=== PATIENT | male | born 1945 | race Caucasian/White ===

== ENCOUNTER 2017-05-04 20:20 | Emergency (ER) | payer MEDICARE, OTHER ==
--- NOTE | 2017-05-04 20:52 | ER Document Report ---
ED General - General Stated Complaint: THIGH PAIN/SWELLING Time Seen by Provider: 05/04/17 20:32 Notes: Patient is a 71-year-old male with past medical history of chronic bilateral lower extremity edema, diabetes, hypertension, none of which is currently medically managed as he does not currently have a doctor who presents with concerns of a open wound and rash to his left foot as well as bilateral lower extremity edema. Patient reports that he has had an ulcerating lesion on the distal aspect of his left dorsal foot that is worsened over the last several days and has begun to have a foul-smelling purulent drainage. He notes a small amount of surrounding erythema. He states he has had similar episodes in the past secondary to his diabetic neuropathy and wearing shoes that do not fit properly. He denies any fever or constitutional symptoms. He also notes that he has had worsening of the swelling in both of his legs. He has not done anything to try to treat this. He is uncertain of if he has a history of CHF or chronic kidney disease. - Related Data Allergies/Adverse Reactions: No Known Allergies Allergy (Unverified 05/04/17 20:51) Past Medical History - General Information source: Patient - Social History Smoking Status: Never Smoker Frequency of alcohol use: None Drug Abuse: None Lives with: Alone Family History: Reviewed & Not Pertinent Review of Systems - Review of Systems Notes: Constitutional: Negative for fever. HENT: Negative for sore throat. Eyes: Negative for visual changes. Cardiovascular: Negative for chest pain. Respiratory: Negative for shortness of breath. Gastrointestinal: Negative for abdominal pain, vomiting or diarrhea. Genitourinary: Negative for dysuria. Musculoskeletal: Positive for bilateral lower extremity pain and edema Skin: Positive for rash. Neurological: Negative for headaches, weakness or numbness. 10 point ROS negative except as marked above and in HPI. Physical Exam - Vital signs Vitals: Temp Pulse Resp BP Pulse Ox 97.4 F 97 17 125/100 H 99 05/04/17 20:51 05/04/17 20:51 05/04/17 20:51 05/04/17 20:51 05/04/17 20:51 Interpretation: Normal Notes: PHYSICAL EXAMINATION: GENERAL: Appears somewhat older than stated age. In no acute distress. HEAD: Atraumatic, normocephalic. EYES: Pupils equal round and reactive to light, extraocular movements intact, sclera anicteric, conjunctiva are normal. ENT: nares patent, oropharynx clear without exudates. Moist mucous membranes. NECK: Normal range of motion, supple without lymphadenopathy LUNGS: Breath sounds clear to auscultation bilaterally and equal. No wheezes rales or rhonchi. HEART: Regular rate and rhythm without murmurs ABDOMEN: Soft, nontender, normoactive bowel sounds. No guarding, no rebound. No masses appreciated. EXTREMITIES: Normal range of motion, 4+ pitting edema that is equal and symmetric in the bilateral lower extremities. NEUROLOGICAL: No focal neurological deficits. Moves all extremities spontaneously and on command. PSYCH: Normal mood, normal affect. SKIN: Warm, Dry, normal turgor, there is a 2 x 1 cm circular ulcer on the dorsal , distal aspect of the left foot just below the level of the toes and the central foot. There is a small surrounding area of erythema. No crepitus. Course - Re-evaluation Re-evalutation: 05/04/17 20:51 Patient presents with bilateral lower extremity edema and a diabetic foot ulcer on the dorsum of his left foot with an associated cellulitis. Patient does not currently have a primary care doctor, does not take any medications to control his chronic medical problems. He has no history of CHF or renal failure. He denies any shortness of breath or orthopnea. Vitals are within normal lives at time of assessment. He does not meet sepsis criteria. Is otherwise well in appearance, awake, talking and joking with me during exam. Will obtain basic laboratories, apply compression stockings, start antibiotics and plan for likely discharge home 05/04/17 21:59 Patient's laboratories do demonstrate that he likely has underlying congestive heart failure. I have explained this to him and encouraged him to follow-up with his primary doctor and curriculum supervisor at his earliest ability. He was placed in compression stockings and I will start him on a short course of Lasix to assist with the lower extremity edema. Will also start him on metformin for his diabetes hemoglobin A1c is 8.6. Renal function is normal. He will be also started on TMP-SMX as well as cephalexin to treat the cellulitis of the left lower extremity. At this time will discharge with return precautions and follow -up recommendations. Verbal discharge instructions given a the bedside and opportunity for questions given. Medication warnings reviewed. Patient is in agreement with this plan and has verbalized understanding of return precautions and the need for primary care follow-up in the next 24-72 hours. - Vital Signs Vital signs: Temp Pulse Resp BP Pulse Ox 97.4 F 97 27 H 118/104 H 99 05/04/17 20:51 05/04/17 20:51 05/05/17 02:30 05/05/17 02:30 05/05/17 02:30 - Laboratory Result Diagrams: 05/04/17 20:50 05/04/17 20:50 Laboratory results interpreted by me: 05/04/17 05/04/17 05/04/17 20:50 20:50 20:50 RDW 16.5 H Plt Count 132 L Seg Neutrophils % 78.4 H Lymphocytes % 12.1 L BUN 27 H Glucose 169 H Hemoglobin A1c % NT-Pro-B Natriuret Pep 25940 H 05/04/17 20:50 RDW Plt Count Seg Neutrophils % Lymphocytes % BUN Glucose Hemoglobin A1c % 8.6 H NT-Pro-B Natriuret Pep Discharge - Discharge Clinical Impression: Lower extremity edema, Left leg cellulitis Congestive heart failure Qualifiers: Congestive heart failure type: unspecified congestive heart failure type Congestive heart failure chronicity: unspecified congestive heart failure chronicity Qualified Code(s): I50.9 - Heart failure, unspecified Type 2 diabetes mellitus Qualifiers: Diabetes mellitus complication status: with skin complications Diabetes mellitus complication detail: with foot ulcer Diabetes mellitus long term care pharmacist insulin use: without mcc use Qualified Code(s): E11.621 - Type 2 diabetes mellitus with foot ulcer Condition: Fair Disposition: HOME, SELF-CARE Additional Instructions: You need to follow-up with a primary care doctor. I recognize that you do not currently have one but it is extremely important that you get one as you have multiple medical problems that require chronic management. Your labs suggest that you have uncontrolled diabetes which is one of the main causes of your lower extremity infection and ulcer. However, your labs also suggest that you likely have some underlying congestive heart failure which is why your legs swell so much. We are putting you in compression stockings and you will also be started on a medicine called furosemide to help get rid of some of the fluid in your legs. You are being started on two antibiotics to treat the infection of your left foot. Your are also being started back on metformin to help control your blood sugars. You will need to see both the curriculum supervisor and a primary care doctor as soon as you are able. Referrals for local doctors are included in your paperwork. Please return to the emergency department immediately if you develop shortness of breath, fever, persistent vomiting, worsening of the rash in you left lower extremity, or any other symptoms that are worrisome to you. Prescriptions: Cephalexin Monohydrate [Keflex 500 mg Capsule] 500 mg PO Q6H 10 Days #40 capsule Furosemide [Lasix 40 mg Tablet] 40 mg PO QAM #30 tablet Metformin HCl [Glucophage 500 mg Tablet] 500 mg PO BID #60 tablet Sulfamethoxazole/Trimethoprim [Bactrim Ds Tablet] 1 tab PO BID #20 tablet Referrals: HANK VARGAS MD [NO LOCAL MD] - Follow up in 3-5 days CLAUDIA ORONA MD [ACTIVE STAFF] - Follow up in 3-5 days
[2017-05-04 21:06] LABS: ABSOLUTE BASOPHILS # (AUTO) 0.1 10^3/uL (0.0-0.2); ABSOLUTE LYMPHOCYTES (AUTO) 0.9 10^3/uL (0.5-4.7); ABSOLUTE MONOCYTES (AUTO) 0.6 10^3/uL (0.1-1.4); ABSOLUTE NEUT (AUTO) 5.5 10^3/uL (1.7-8.2); BASOPHILS % (AUTO) 0.9 % (0-2); EOSINOPHILS % (AUTO) 0.3 % (0-6); HEMATOCRIT 45.8 % (37.9-51.0); HEMOGLOBIN 14.9 g/dL (13.5-17.0); HGB HCT DIFFERENCE -1.1; LYMPHOCYTES % (AUTO) 12.1 % (13-45); MEAN CORPUSCULAR HEMOGLOBIN 28.7 pg (27.0-33.4); MEAN CORPUSCULAR HGB CONC 32.5 g/dL (32.0-36.0); MEAN CORPUSCULAR VOLUME 88 fl (80-97); MONOCYTES % (AUTO) 8.3 % (3-13); RED BLOOD COUNT 5.18 10^6/uL (4.35-5.55); RED CELL DISTRIBUTION WIDTH 16.5 % (11.5-14.0); SEGMENTED NEUTROPHILS % (AUTO) 78.4 % (42-78)
[2017-05-04 21:27] LABS: BLOOD UREA NITROGEN 27 mg/dL (7-20); CARBON DIOXIDE 24 mmol/L (22-30); CHLORIDE 107 mmol/L (98-107); CREATININE RESULT 1.03 mg/dL (0.52-1.25); GLUCOSE 169 mg/dL (75-110); POTASSIUM 4.4 mmol/L (3.6-5.0)
[2017-05-04 21:28] LABS: ANION GAP 10 (5-19); SODIUM 141.3 mmol/L (137-145)
[2017-05-04] MEDS ORDERED: FUROSEMIDE 40 MG TABLET PO ONE (21:58)
[2017-05-04] MEDS ORDERED: CEPHALEXIN 500 MG CAPSULE PO ONE (21:59)
[2017-05-04] MEDS ORDERED: SULFAMETHOXAZOLE/TRIMETHOPRIM 800-160 MG TABLET PO ONE (21:59)
[2017-05-05 09:33] VITALS: BP 124/98
== END 2017-05-05 09:00 | disposition home or self-care (01) ==
LOC: ER 20:20
DX: E11.621 Type 2 diabetes mellitus with foot ulcer (principal); I50.9 Heart failure, unspecified; L03.116 Cellulitis of left lower limb; M79.659 Pain in unspecified thigh; M79.89 Other specified soft tissue disorders; R60.0 Localized edema; I10 Essential (primary) hypertension; R21 Rash and other nonspecific skin eruption
CPT/HCPCS: 99284; 36415; 85025; 80048; 83036; 83880; A9270 ×3

== ENCOUNTER 2018-08-23 12:43 | Inpatient (IN) | payer MEDICARE ==
--- NOTE | 2018-08-23 13:15 | ER Document Report ---
ED General - General Mode of Arrival: Ambulatory Information source: Patient <COLLINS MACIEL - Last Filed: 08/23/18 16:14> <GABI STARKEY - Last Filed: 08/23/18 17:46> - General Stated Complaint: WEAKNESS Time Seen by Provider: 08/23/18 12:58 Notes: Patient is a 73 year old male with HTN, hyperlipidema, type 2 diabetes presents to the emergency department complaining of weakness and general malaise onset 5 days ago. Patient states he had flu like symptoms a few weeks ago that resolved sometime last week. He states last week, he developed general malaise, weakness, decreased appetite and decreased fluid intake shortly after his flu like symptoms resolved. Son states he has been checking the patient's blood sugar and it has been running normal. Patient's PCP is YURIDIA Quezada. Patient is currently prescribed Metformin. Of significance, patient was admitted to the [facility] over a year ago for fluid build up. He was last seen in this emergency department for similar issues in 04/2017 and admitted for 1 day. Patient states he has not seen a provider in several months. (COLLINS MACIEL) - Related Data Allergies/Adverse Reactions: No Known Allergies Allergy (Unverified 05/04/17 20:51) Past Medical History - General Information source: Patient - Social History Smoking Status: Never Smoker Cigarette use (# per day): No Chew tobacco use (# tins/day): No Frequency of alcohol use: None Family History: Reviewed & Not Pertinent - Past Medical History Cardiac Medical History: Reports: Hx Hypercholesterolemia, Hx Hypertension Endocrine Medical History: Reports: Hx Diabetes Mellitus Type 2 Past Surgical History: Reports: Hx Cholecystectomy <COLLINS MACIEL - Last Filed: 08/23/18 16:14> Review of Systems - Review of Systems Constitutional: No symptoms reported, See HPI, Malaise, Weakness EENT: No symptoms reported Cardiovascular: No symptoms reported Respiratory: No symptoms reported Gastrointestinal: See HPI, Poor appetite, Poor fluid intake Genitourinary: No symptoms reported Male Genitourinary: No symptoms reported Musculoskeletal: No symptoms reported Skin: No symptoms reported Hematologic/Lymphatic: No symptoms reported Neurological/Psychological: No symptoms reported -: Yes All other systems reviewed and negative <COLLINS MACIEL - Last Filed: 08/23/18 16:14> Physical Exam <COLLINS MACIEL - Last Filed: 08/23/18 16:14> - Vital signs Vitals: Temp Pulse Resp BP Pulse Ox 97.3 F 100 20 117/79 98 08/23/18 12:45 08/23/18 12:45 08/23/18 12:45 08/23/18 12:45 08/23/18 12:45 - Notes Notes: GENERAL: Alert, interacts well. No acute distress. HEAD: Normocephalic, atraumatic. EYES: Pupils equal, round, and reactive to light. Extraocular movements intact. ENT: Oral mucosa moist, tongue midline. NECK: Full range of motion. Supple. Trachea midline. LUNGS: Clear to auscultation bilaterally, no wheezes, rales, or rhonchi. No respiratory distress. HEART:Late systolic crescendo murmur. ABDOMEN: Soft, non-tender. Non-distended. Bowel sounds present in all 4 quadrants. EXTREMITIES: Moves all 4 extremities spontaneously. No edema, radial and dorsalis pedis pulses 2/4 bilaterally. No cyanosis. NEUROLOGICAL: Alert and oriented x3. Normal speech. PSYCH: Normal affect, normal mood. SKIN: Warm, dry, normal turgor. No rashes or lesions noted. (RAHEEMCOLLINS ALCALA) Course - Laboratory Result Diagrams: 08/23/18 14:27 08/23/18 14:27 <COLLINS MACIEL - Last Filed: 08/23/18 16:14> - Laboratory Result Diagrams: 08/23/18 14:27 08/23/18 14:27 - Diagnostic Test Radiology reviewed: Image reviewed, Reports reviewed - Chest x-ray showed large left hilar mass. CT scan with contrast showed malignant left hilar mass with postobstructive collapse and consolidation of the left upper lobe. Bony metastatic lesions in the sternum and 5 vertebral body. Malignant appearing mediastinal and retroperitoneal lymph nodes. Multiple peritoneal implants without ascites. - EKG Interpretation by Vt EKG shows normal: Sinus rhythm, [place], Intervals, QRS Complexes, ST-T Waves Rate: Normal Rhythm: NSR, PVC's [place]/QRS: RBBB - Consults Dr. Cook Time consulted: 17:32 Consulted provider: will come to ER <GABI STARKEY - Last Filed: 08/23/18 17:46> - Vital Signs Vital signs: Temp Pulse Resp BP Pulse Ox 97.3 F 100 22 H 101/83 99 08/23/18 12:45 08/23/18 12:45 08/23/18 17:01 08/23/18 17:01 08/23/18 17:01 - Laboratory Laboratory results interpreted by me: 08/23/18 08/23/18 08/23/18 14:27 14:27 14:27 RDW 15.1 H Seg Neutrophils % 83.1 H Lymphocytes % 9.8 L Sodium 132.9 L Chloride 96 L Glucose 188 H Direct Bilirubin 0.5 H ALT 17 L Alkaline Phosphatase 166 H Creatine Kinase 21 L Total Protein 6.1 L Albumin 3.3 L Free T3 pg/mL 2.10 L Discharge <COLLINS MACIEL - Last Filed: 08/23/18 16:14> - Discharge Admitting Provider: Hospitalist Unit Admitted: Medical Floor <GABI STARKEY - Last Filed: 08/23/18 17:46> - Discharge Clinical Impression: Widespread metastatic malignant neoplastic disease Lung cancer, hilus Qualifiers: Laterality: left Qualified Code(s): C34.02 - Malignant neoplasm of left main bronchus Type II diabetes mellitus Qualifiers: Diabetes mellitus ict managers insulin use: without ict managers use Diabetes mellitus complication status: with unspecified complications Qualified Code(s): E11.8 - Type 2 diabetes mellitus with unspecified complications Condition: Stable Disposition: ADMITTED INPATIENT Referrals: ANA GREEN NP [Primary Care Provider] - Follow up as needed Scribe Attestation: 08/23/18 14:38 I personally performed the services described in the documentation, reviewed and edited the documentation which was dictated to the scribe in my presence, and it accurately records my words and actions. (GABI STARKEY) Scribe Documentation - Scribe Written by Zena:: Zena Choe, 08/23/2018 13:27 acting as scribe for :: Behzad <COLLINS MACIEL - Last Filed: 08/23/18 16:14>
[2018-08-23 14:47] LABS: ABSOLUTE MONOCYTES (AUTO) 0.7 10^3/uL (0.1-1.4); ABSOLUTE NEUT (AUTO) 8.2 10^3/uL (1.7-8.2); BASOPHILS % (AUTO) 0.3 % (0-2); EOSINOPHILS % (AUTO) 0.1 % (0-6); HEMATOCRIT 45.4 % (37.9-51.0); HEMOGLOBIN 15.7 g/dL (13.5-17.0); LYMPHOCYTES % (AUTO) 9.8 % (13-45); MEAN CORPUSCULAR HEMOGLOBIN 28.6 pg (27.0-33.4); MEAN CORPUSCULAR HGB CONC 34.6 g/dL (32.0-36.0); MEAN CORPUSCULAR VOLUME 83 fl (80-97); MONOCYTES % (AUTO) 6.7 % (3-13); PLATELET COUNT 208 10^3/uL (150-450); RED BLOOD COUNT 5.49 10^6/uL (4.35-5.55); RED CELL DISTRIBUTION WIDTH 15.1 % (11.5-14.0); SEGMENTED NEUTROPHILS % (AUTO) 83.1 % (42-78); TOTAL CELLS COUNTED % (AUTO) 100 %; WHITE BLOOD COUNT 9.9 10^3/uL (4.0-10.5)
--- NOTE | 2018-08-23 14:53 | RADIOLOGY REPORT (SQ) ---
EXAM DESCRIPTION: CHEST SINGLE VIEW COMPLETED DATE/TIME: 08/23/2018 2:35 pm REASON FOR STUDY: weakness COMPARISON: Chest films 03/23/2010 EXAM PARAMETERS: NUMBER OF VIEWS: One view. TECHNIQUE: Single frontal radiographic view of the chest acquired. RADIATION DOSE: NA LIMITATIONS: None. FINDINGS: LUNGS AND PLEURA: Volume loss left hemithorax. There is left upper lobe consolidation and collapse. Findings are worrisome for postobstructive pneumonia from endobronchial/hilar lesion. Th is was discussed with Dr. Wen. No pleural effusions. No pneumothorax. No right-sided infiltrates. MEDIASTINUM AND HILAR STRUCTURES: Fullness left hilum worrisome for mass HEART AND VASCULAR STRUCTURES: Heart normal in size. Normal vasculature. BONES: No acute findings. HARDWARE: None in the chest. OTHER: No other significant finding. IMPRESSION: Findings worrisome for postobstructive pneumonia in the left upper lobe related to left hilar mass TECHNICAL DOCUMENTATION: JOB ID: [id number] [employer]- All Rights Reserved Reading location - IP/workstation name: [email or web address]
[2018-08-23 15:24] LABS: ALANINE AMINOTRANSFERASE 17 U/L (21-72); ALBUMIN 3.3 g/dL (3.5-5.0); ALKALINE PHOSPHATASE 166 U/L (38-126); ANION GAP 12 (5-19); ASPARTATE AMINO TRANSFERASE 31 U/L (17-59); BILIRUBIN,DIRECT 0.5 mg/dL (0.0-0.4); BILIRUBIN,TOTAL 0.8 mg/dL (0.2-1.3); BLOOD UREA NITROGEN 20 mg/dL (7-20); CALCIUM 9.3 mg/dL (8.4-10.2); CARBON DIOXIDE 25 mmol/L (22-30); CHLORIDE 96 mmol/L (98-107); CREATINE KINASE 21 U/L (55-170); FREE T3 2.1 pg/mL (2.77-5.27); FREE T4 (FREE THYROXINE) 1.5 ng/dL (0.78-2.19); GLUCOSE 188 mg/dL (75-110); POTASSIUM 4.2 mmol/L (3.6-5.0); SODIUM 132.9 mmol/L (137-145); TOTAL PROTEIN 6.1 g/dL (6.3-8.2)
[2018-08-23 15:38] LABS: THYROID STIMULATING HORMONE 1.64 uIU/mL (0.47-4.68)
[2018-08-23] MEDS ORDERED: NORMAL SALINE 1000 ML 1,000 ML IV ONE (16:39)
--- NOTE | 2018-08-23 16:54 | RADIOLOGY REPORT (SQ) ---
EXAM DESCRIPTION: CT CHEST WITH; CT ABD/PELVIS WITH IV ONLY COMPLETED DATE/TIME: 08/23/2018 4:20 pm REASON FOR STUDY: Left upper lobe mass, weakness with no appetite COMPARISON: Chest films 08/23/2018 CONTRAST TYPE AND DOSE: contrast/concentration: Isovue 350.00 mg/ml; Total Contrast Delivered: 83.0 ml; Total Saline Delivered: 69.0 ml RENAL FUNCTION: Creatinine 0.64 TECHNIQUE: CT scan of the chest performed using helical scanning technique with dynamic intravenous contrast injection. Images reviewed with lung, soft tissue and bone windows. Reconstructed coronal a nd sagittal MPR images reviewed. All images stored on PACS. CT scan of the abdomen and pelvis performed with intravenous and without oral contrastusing helical s ainsley technique with dynamic intravenous contrast injection. Images reviewed with lung, soft tissu e and bone windows. Reconstructed coronal and sagittal MPR images reviewed. Delayed images for eval uation of the urinary system also acquired and evaluated. All images stored on PACS. All CT scanners at this facility use dose modulation, iterative reconstruction, and/or weight based d osing when appropriate to reduce radiation dose to as low as reasonably achievable (ALARA). [facility]: Dose Right [facility]: CareDose [facility]: Dose Right [facility]: Teradose 4D [facility]: [employer] RADIATION DOSE: CT Rad equipment meets quality standard of care and radiation dose reduction techniq ues were employed. CTDIvol: 6.7 - 7.7 mGy. DLP: 961 mGy-cm. . LIMITATIONS: None. FINDINGS: CHEST: LUNGS AND PLEURA: Postobstructive collapse of the left upper lobe due to a large left hilar/mediastin al mass. Trace left pleural effusion. Right lung well inflated and clear. No right pleural effusion. No right or left pneumothorax. HILAR AND MEDIASTINAL STRUCTURES: At the left hilum, a 12 cm craniocaudad by 7 cm AP x 0.5 cm transve rse mass is present, occluding the left upper lobe bronchus and encasing the left upper lobe and left lower lobe pulmonary arteries with mild narrowing of the vessels. A 1.6 x 1.5 cm right hilar lymph node is present on axial image 38. A 1.8 x 1 cm sub- carinal lymph node is present on axial image 30. A 2 x 1.8 cm pericardiophrenic lymph node is present on axial image 57. HEART AND VASCULAR STRUCTURES: No aneurysm or dissection. No central pulmonary emboli. No pericardi al effusion. Heavily calcified coronary arteries HARDWARE: None. THYROID AND OTHER SOFT TISSUES: Multiple thyroid nodules. BONES: 1 cm lytic bony metastatic lesion in the manubrium sternum OTHER: No other significant finding. ABDOMEN AND PELVIS: LIVER: Normal size. 2 cm cyst in the inferior right lobe liver SPLEEN: Normal size. No focal lesions. PANCREAS: No masses. No significant calcifications. No adjacent inflammation or peripancreatic fluid collections. Pancreatic duct not dilated. GALLBLADDER: Surgically absent ADRENAL GLANDS: 2.2 cm right adrenal metastatic lesion axial image 62. 4.3 x 4.3 cm right retroperit main nodule adjacent to the adrenal gland likely another metastatic lesion axial image 62. 2.5 cm l eft adrenal metastatic lesion axial image 70. RIGHT KIDNEY AND URETER: In the right mid-pole kidney, a 5.3 x 4.3 cm solid mass is present worrisome for metastatic disease. No right hydronephrosis or hydroureter. No right-sided urinary stones. LEFT KIDNEY AND URETER: No solid masses. Multiple left renal cortical cysts are present the largest is 2 cm diameter left upper pole kidney. No significant calcification. No hydronephrosis or hydroure ter. AORTA AND VESSELS: No aneurysm. No dissection. Renal arteries, SMA, celiac without stenosis. RETROPERITONEUM: 4 x 2 cm left retroperitoneal tumor mass along the medial aspect left kidney axial i mage 80. BOWEL AND PERITONEAL CAVITY: No CT evidence of bowel obstruction or free intraperitoneal air or fluid . There are multiple 1 to 2 cm nodules scattered throughout the peritoneal space from metastatic dis ease. No ascites APPENDIX: Normal. ABDOMINAL WALL: No masses. No hernias. PELVIS: 1.7 cm nodule in the right deep pelvis along the obturator internus likely an enlarged senior [employer] al iliac lymph node. 7 mm nodule in the presacral fat likely a metastatic nodule. Bladder, rectum u nremarkable. BONES: 4.5 cm lytic lesion in the left lateral L5 vertebral body and pedicle from metastatic disease OTHER: No other significant finding. IMPRESSION: Malignant appearing left hilar mass with postobstructive collapse and consolidation left upper lobe. Bony metastatic lesions in the sternum and L5 vertebral body Malignant appearing Mediastinal and retroperitoneal lymph nodes. Multiple peritoneal implants withou t ascites. TECHNICAL DOCUMENTATION: JOB ID: [id number] Quality ID # [id number]: Final reports with documentation of one or more dose reduction techniques (e.g., Au tomated exposure control, adjustment of the mA and/or kV according to patient size, use of iterative reconstruction technique) 2010 [employer]- All Rights Reserved Reading location - IP/workstation name: [email or web address]
[2018-08-23] MEDS ORDERED: ONDANSETRON HCL INJ/PF 4 MG/2 ML SDV IV PRN (17:58)
--- NOTE | 2018-08-23 18:20 | PDOC H&P ---
History of Present Illness Admission Date/PCP: 08/23/18 17:59 ANA GREEN NP History of Present Illness: ELIAS GRIFFIN is a 73 year old male who comes in with a roughly 4-week history o f decreased appetite and general malaise. He feels like he has lost a little bit of weight in that time but is not sure how much. His energy level has decreased and his exercise capacity has diminished. He is not had any cough, fever, or chills. He has had no other symptoms. He has not had any change in his bowel or bladder habits. Generally his oral intake is diminished. In the course of his ER workup it was determined that he had what looks like a large left hilar mass, diffuse adenopathy, and retroperitoneal and bony implants. He is being admitted for further assessment. Past Medical History Cardiac Medical History: Reports: Hyperlipidema, Hypertension Endocrine Medical History: Reports: Diabetes Mellitus Type 2 Past Surgical History Past Surgical History: Reports: Cholecystectomy Social History Smoking Status: Never Smoker Family History Family History: Reviewed & Not Pertinent Parental Family History Reviewed: Yes - Noncontributory Children Family History Reviewed: Yes - Noncontributory Sibling(s) Family History Reviewed.: Yes - Noncontributory Medication/Allergy Allergies/Adverse Reactions: No Known Allergies Allergy (Unverified 05/04/17 20:51) Review of Systems All systems: reviewed and no additional remarkable complaints except as stated - 10 point review of systems was conducted with the patient and was negative except as noted above. Physical Exam Vital Signs: Temp Pulse Resp BP Pulse Ox 97.3 F 100 15 107/80 100 08/23/18 12:45 08/23/18 12:45 08/23/18 18:02 08/23/18 18:02 08/23/18 18:02 General appearance: PRESENT: no acute distress, cooperative, thin Head exam: PRESENT: atraumatic, normocephalic Eye exam: PRESENT: EOMI, PERRLA. ABSENT: conjunctival injection, nystagmus, scleral icterus Ear exam: PRESENT: normal external ear exam Mouth exam: PRESENT: dry mucosa, neck supple Throat exam: ABSENT: post pharyngeal erythema Neck exam: PRESENT: full ROM. ABSENT: carotid bruit, JVD, lymphadenopathy, meningismus, tenderness, thyromegaly Respiratory exam: PRESENT: rhonchi - Left base, unlabored. ABSENT: accessory muscle use, rales, tachypnea, wheezes Cardiovascular exam: PRESENT: RRR, +S1, +S2 Vascular exam: PRESENT: normal capillary refill GI/Abdominal exam: PRESENT: normal bowel sounds, soft. ABSENT: distended, guarding, rebound, tenderness Rectal exam: PRESENT: deferred Extremities exam: ABSENT: clubbing, pedal edema Musculoskeletal exam: PRESENT: normal inspection. ABSENT: deformity Neurological exam: PRESENT: alert, awake, oriented to person, oriented to place, oriented to time, oriented to situation, CN II-XII grossly intact. ABSENT: motor sensory deficit Psychiatric exam: PRESENT: flat affect Skin exam: PRESENT: dry, warm Results Laboratory Results: 08/23/18 14:27 08/23/18 14:27 08/23/18 08/23/18 08/23/18 14:04 14:27 14:27 WBC 9.9 RBC 5.49 Hgb 15.7 Hct 45.4 MCV 83 MCH 28.6 MCHC 34.6 RDW 15.1 H Plt Count 208 Seg Neutrophils % 83.1 H Lymphocytes % 9.8 L Monocytes % 6.7 Eosinophils % 0.1 Basophils % 0.3 Absolute Neutrophils 8.2 Absolute Lymphocytes 1.0 Absolute Monocytes 0.7 Absolute Eosinophils 0.0 Absolute Basophils 0.0 Sodium Cancelled Potassium Cancelled Chloride Cancelled Carbon Dioxide Cancelled Anion Gap Cancelled BUN Cancelled Creatinine Cancelled Est GFR ( Amer) Cancelled Est GFR (Non-Af Amer) Cancelled Glucose Cancelled Lactic Acid 1.5 Calcium Cancelled Magnesium Cancelled Total Bilirubin Cancelled AST Cancelled ALT Cancelled Alkaline Phosphatase Cancelled Total Protein Cancelled Albumin Cancelled TSH Free T4 Free T3 pg/mL 08/23/18 08/23/18 14:27 14:27 WBC RBC Hgb Hct MCV MCH MCHC RDW Plt Count Seg Neutrophils % Lymphocytes % Monocytes % Eosinophils % Basophils % Absolute Neutrophils Absolute Lymphocytes Absolute Monocytes Absolute Eosinophils Absolute Basophils Sodium 132.9 L Potassium 4.2 Chloride 96 L Carbon Dioxide 25 Anion Gap 12 BUN 20 Creatinine 0.64 Est GFR ( Amer) > 60 Est GFR (Non-Af Amer) > 60 Glucose 188 H Lactic Acid Calcium 9.3 Magnesium 2.2 Total Bilirubin 0.8 AST 31 ALT 17 L Alkaline Phosphatase 166 H Total Protein 6.1 L Albumin 3.3 L TSH 1.64 Free T4 1.50 Free T3 pg/mL 2.10 L 08/23/18 08/23/18 08/23/18 14:04 14:27 14:27 Creatine Kinase Cancelled 21 L Troponin I < 0.012 Impressions: Chest X-Ray 08/23/18 13:16 IMPRESSION: Findings worrisome for postobstructive pneumonia in the left upper lobe related to left hilar mass Abdomen/Pelvis CT 08/23/18 14:48 IMPRESSION: Malignant appearing left hilar mass with postobstructive collapse and consolidation left upper lobe. Bony metastatic lesions in the sternum and L5 vertebral body Malignant appearing Mediastinal and retroperitoneal lymph nodes. Multiple peritoneal implants without ascites. Chest CT 08/23/18 14:48 IMPRESSION: Malignant appearing left hilar mass with postobstructive collapse and consolidation left upper lobe. Bony metastatic lesions in the sternum and L5 vertebral body Malignant appearing Mediastinal and retroperitoneal lymph nodes. Multiple peritoneal implants without ascites. Assessment & Plan - Diagnosis (1) Type II diabetes mellitus Qualifiers: Diabetes mellitus refinisher insulin use: without half-way use Diabetes mellitus complication status: with unspecified complications Qualified Code(s): E11.8 - Type 2 diabetes mellitus with unspecified complications Is this a current diagnosis for this admission?: Yes Plan: Continue his home medications and a consistent carbohydrate diet (2) Widespread metastatic malignant neoplastic disease Is this a current diagnosis for this admission?: Yes Plan: From the looks of his workup thus far, the suspicion is of a lung primary with diffuse metastatic disease. He does not have any profound electrolyte disturbances or evidence of other organ dysfunction. I am giving him a little bit of IV fluids and will encourage him to eat. Oncology consult has been placed. - Time Time Spent: 50 to 70 Minutes - Inpatient Certification Based on my medical assessment, after consideration of the patient's comorbi dities, presenting symptoms, or acuity I expect that the services needed warrant INPATIENT care.: Yes I certify that my determination is in accordance with my understanding of Medicare's requirements for reasonable and necessary INPATIENT services [42 CFR 412.3e].: Yes Medical Necessity: Need For IV Fluids, Risk of Diagnosis Which Will Require Inpatient Eval/Care/Monitoring
--- NOTE | 2018-08-23 19:08 | EKG REPORT ---
SEVERITY:- ABNORMAL ECG - SINUS TACHYCARDIA VENTRICULAR TRIGEMINY RIGHT BUNDLE BRANCH BLOCK : Confirmed by: Bernardino Wing 23-Aug-2018 19:07:38
[2018-08-23] MEDS: NORMAL SALINE 1000 ML 1,000 ML IV PRN (21:03)
[2018-08-24] MEDS: HEPARIN SOD (PORCINE) 5,000 UNIT/ML 1 ML SYRINGE SUBCUT SCH ×3 (07:27→21:27)
--- NOTE | 2018-08-24 18:14 | PDOC PROGRESS REPORT ---
Subjective Progress Note for:: 08/24/18 Subjective:: No adverse events overnight. He says his appetite improved and he ate some of his breakfast today. He says he feels a lot better than he has in several weeks. No fevers. No nausea. Reason For Visit: SUSPECTED METASTATIC LUNG CANCER Physical Exam Vital Signs: Temp Pulse Resp BP Pulse Ox 98.1 F 81 18 118/73 98 08/24/18 12:18 08/24/18 12:18 08/24/18 12:18 08/24/18 12:18 08/24/18 12:18 Intake & Output 08/23/18 08/24/18 08/25/18 06:59 06:59 06:59 Intake Total 1475 1000 Output Total 375 Balance 1100 1000 Weight 72.9 kg General appearance: PRESENT: no acute distress, cooperative, disheveled, thin Respiratory exam: PRESENT: rhonchi - Left base, unlabored. ABSENT: accessory muscle use, crackles, tachypnea, wheezes Cardiovascular exam: PRESENT: RRR, +S1, +S2 Vascular exam: PRESENT: normal capillary refill GI/Abdominal exam: PRESENT: normal bowel sounds, soft. ABSENT: distended, guarding, rebound, tenderness Extremities exam: ABSENT: clubbing, pedal edema Musculoskeletal exam: PRESENT: normal inspection. ABSENT: deformity Neurological exam: PRESENT: alert, awake, oriented to person, oriented to place, oriented to time Psychiatric exam: PRESENT: appropriate affect, normal mood Skin exam: PRESENT: dry, warm Results Laboratory Results: 08/23/18 14:27 08/23/18 14:27 08/23/18 08/23/18 08/23/18 14:04 14:27 14:27 Creatine Kinase Cancelled 21 L Troponin I < 0.012 Impressions: Chest X-Ray 08/23/18 13:16 IMPRESSION: Findings worrisome for postobstructive pneumonia in the left upper lobe related to left hilar mass Abdomen/Pelvis CT 08/23/18 14:48 IMPRESSION: Malignant appearing left hilar mass with postobstructive collapse and consolidation left upper lobe. Bony metastatic lesions in the sternum and L5 vertebral body Malignant appearing Mediastinal and retroperitoneal lymph nodes. Multiple peritoneal implants without ascites. Chest CT 08/23/18 14:48 IMPRESSION: Malignant appearing left hilar mass with postobstructive collapse and consolidation left upper lobe. Bony metastatic lesions in the sternum and L5 vertebral body Malignant appearing Mediastinal and retroperitoneal lymph nodes. Multiple peritoneal implants without ascites. Assessment & Plan - Diagnosis (1) Type II diabetes mellitus Qualifiers: Diabetes mellitus roasterman insulin use: without roasterman use Diabetes mellitus complication status: with unspecified complications Qualified Code(s): E11.8 - Type 2 diabetes mellitus with unspecified complications Is this a current diagnosis for this admission?: Yes Plan: Continue his home medications and a consistent carbohydrate diet (2) Widespread metastatic malignant neoplastic disease Is this a current diagnosis for this admission?: Yes Plan: Suspicion of a lung primary. Oncology consult has been placed and is pending. - Time Time Spent with patient: 15-24 minutes
--- NOTE | 2018-08-24 18:39 | PDOC CONSULTATION ---
Consultation Consult Date: 08/24/18 Consult reason:: Hematology/Oncology consultation was requested for patient with new lung mass. History of Present Illness Admission Date/PCP: 08/23/18 17:59 ANA GREEN NP History of Present Illness: ELIAS GRIFFIN is a 73 year old male who presented to the ED with a 1 week history of difficulty walking due to balance problems. He denies dizziness or weakness, just balance. He fell and hurt his right shoulder about a week ago. Since then he has had no appetite. He denies any dyspnea, but in the ED, was found to have a large lung mass with collapsed lung due to obstruction. Past Medical History Cardiac Medical History: Reports: Hyperlipidema, Hypertension Endocrine Medical History: Reports: Diabetes Mellitus Type 2 Psychiatric Medical History: Denies: Depression Past Surgical History Past Surgical History: Reports: Cholecystectomy Social History Information Source: Patient Occupation: retired trucking supervisor Smoking Status: Current Some Day Smoker Cigars Per Day: 1 Frequency of Alcohol Use: None Hx Recreational Drug Use: No Drugs: None Hx Prescription Drug Abuse: No Past Social History Note: with 2 kids and 3 grandkids. - Advance Directive Resuscitation Status: Full Code Family History Parental Family History Reviewed: Yes - Father age 54 of [place]. Mother age 55 of brain tumor. Children Family History Reviewed: Yes Sibling(s) Family History Reviewed.: Yes - Sister breast cancer. Sister MA, brother with DM, war injuries Medication/Allergy Home Medications: Aspirin [Ecotrin 81 mg EC Tablet] 81 mg PO DAILY 08/23/18 Atorvastatin Calcium [Lipitor 80 mg Tablet] 80 mg PO QHS 08/23/18 Furosemide [Lasix 20 mg Tablet] 20 mg PO QPM 08/23/18 Lisinopril [Prinivil 2.5 mg Tablet] 2.5 mg PO QAM 08/23/18 Metformin HCl [Glucophage 500 mg Tablet] 500 mg PO BID 08/23/18 Metoprolol Tartrate [Lopressor 25 mg Tablet] 6.25 mg PO Q12 08/23/18 Tamsulosin HCl [Flomax] 0.4 mg PO QAM 08/23/18 Allergies/Adverse Reactions: No Known Allergies Allergy (Unverified 05/04/17 20:51) Review of Systems Constitutional: ABSENT: fever(s), headache(s) Eyes: ABSENT: visual disturbances Ears: ABSENT: hearing changes Nose, Mouth, and Throat: ABSENT: sore throat Cardiovascular: ABSENT: chest pain Respiratory: ABSENT: dyspnea Gastrointestinal: ABSENT: abdominal pain Genitourinary: ABSENT: dysuria Musculoskeletal: ABSENT: back pain, muscle weakness Integumentary: ABSENT: rash Neurological: PRESENT: abnormal gait, frequent falls. ABSENT: vertigo Psychiatric: ABSENT: anxiety, depression Physical Exam Vital Signs: Temp Pulse Resp BP Pulse Ox 98.1 F 81 18 118/73 98 08/24/18 12:18 08/24/18 12:18 08/24/18 12:18 08/24/18 12:18 08/24/18 12:18 Intake & Output 08/23/18 08/24/18 08/25/18 06:59 06:59 06:59 Intake Total 1475 1000 Output Total 375 Balance 1100 1000 Weight 72.9 kg General appearance: PRESENT: no acute distress, well-developed, well-nourished Exam: 73 year old male. Head exam: PRESENT: atraumatic, normocephalic Eye exam: PRESENT: EOMI Ear exam: PRESENT: normal external ear exam Mouth exam: PRESENT: tongue midline Neck exam: ABSENT: lymphadenopathy, tenderness Respiratory exam: PRESENT: decreased breath sounds - Right base., unlabored Cardiovascular exam: PRESENT: RRR. ABSENT: systolic murmur GI/Abdominal exam: PRESENT: normal bowel sounds, soft. ABSENT: tenderness Extremities exam: ABSENT: pedal edema Musculoskeletal exam: PRESENT: normal inspection Neurological exam: PRESENT: alert, awake, oriented to person, oriented to place, oriented to time, oriented to situation Psychiatric exam: PRESENT: appropriate affect Focused psych exam: ABSENT: psychomotor agitation Skin exam: PRESENT: normal color Results Laboratory Results: 08/23/18 14:27 08/23/18 14:27 08/23/18 08/23/18 08/23/18 14:04 14:27 14:27 Creatine Kinase Cancelled 21 L Troponin I < 0.012 Impressions: Chest X-Ray 08/23/18 13:16 IMPRESSION: Findings worrisome for postobstructive pneumonia in the left upper lobe related to left hilar mass Abdomen/Pelvis CT 08/23/18 14:48 IMPRESSION: Malignant appearing left hilar mass with postobstructive collapse and consolidation left upper lobe. Bony metastatic lesions in the sternum and L5 vertebral body Malignant appearing Mediastinal and retroperitoneal lymph nodes. Multiple peritoneal implants without ascites. Chest CT 08/23/18 14:48 IMPRESSION: Malignant appearing left hilar mass with postobstructive collapse and consolidation left upper lobe. Bony metastatic lesions in the sternum and L5 vertebral body Malignant appearing Mediastinal and retroperitoneal lymph nodes. Multiple peritoneal implants without ascites. Status: Image reviewed by me Assessment & Plan - Diagnosis (1) Lung mass Is this a current diagnosis for this admission?: Yes Plan: Although this looks like a malignant process, will need pathology to determine if this is cancer and if so, what type of cancer it is. He is currently stable from a pulmonary standpoint. I would recommend consulting Pulmonary for possible bronchoscopy. If this is not possible, would ask interventional radiology to see if CT guided biopsy would be possible. I will be happy to offer further recommendations after pathology is available. I will also order MRI brain with contrast, as his initial complaint was balance issues. I am concerned about possible brain mets. - Plan Summary Plan Summary: I will be available through the holiday weekend. Please call me with any questions or concerns. I will continue to follow. I do NOT believe he is safe for discharge at this point.
[2018-08-24] MEDS ORDERED: GLUCAGON,HUMAN RECOMB 1 MG INJ IM PRN (21:30)
[2018-08-24] MEDS ORDERED: DEXTROSE 40% GEL 15 GM TUBE PO PRN (21:30)
[2018-08-24] MEDS ORDERED: DEXTROSE 40% GEL 15 GM TUBE X 2 PO PRN (21:30)
[2018-08-24] MEDS ORDERED: DEXTROSE 50%-WATER SYRINGE 12.5 GM/25 ML DOSE IV PRN (21:30)
[2018-08-24] MEDS ORDERED: DEXTROSE 50%-WATER SYRINGE 25 GM/50 ML DOSE IV PRN (21:30)
--- NOTE | 2018-08-24 22:09 | RADIOLOGY REPORT (SQ) ---
EXAM DESCRIPTION: MR BRAIN WITHOUT THEN WITH IV CONTRAST COMPLETED DATE/TME: 08/24/2018 00:00 CLINICAL HISTORY: 73 years, Male, neurologic changes with lung mass. search for mets COMPARISON: None. TECHNIQUE: [id number] Images stored on PACS. Axial T1, T2, FLAIR, diffusion-weighted, ADC map, postcontrast MR images of the brain were obtained. LIMITATIONS: None. FINDINGS: Sagittal midline anatomic structures shows an unremarkable appearance to the pituitary and suprasellar regions. The globes are intact. Normal flow void in visualized intracranial vessels. The visualized cranial nerve complex these are unremarkable. No intra or extra-axial hemorrhage. No MR evidence for acute stroke. However, there are innumerable enhancing lesions throughout the brain consistent with extensive metastatic disease. The largest is in the medial right cerebellar hemisphere, measuring 2.9 x 2.7 x 2.1 cm. There is mild associated mass effect, however there is no midline shift. Mild diffuse atrophy. IMPRESSION: Innumerable enhancing lesions consistent with extensive metastatic disease to the infratentorial and supratentorial brain, as above. Mild associated mass effect. No midline shift. copyright 2010 [employer]- All Rights Reserved
[2018-08-25] MEDS: HEPARIN SOD (PORCINE) 5,000 UNIT/ML 1 ML SYRINGE SUBCUT SCH ×2 (05:03→14:01)
--- NOTE | 2018-08-25 07:41 | PDOC PROGRESS REPORT ---
Subjective Progress Note for:: 08/25/18 Subjective:: Patient states that he enjoyed the raisin toast. He is thirsty, but otherwise, is feeling OK. He did not get up to walk yesterday. ROS: No pain. No dyspnea. Reason For Visit: SUSPECTED METASTATIC LUNG CANCER Physical Exam Vital Signs: Temp Pulse Resp BP Pulse Ox 97.9 F 73 18 107/73 97 08/24/18 23:43 08/24/18 23:43 08/24/18 23:43 08/24/18 23:43 08/24/18 23:43 Intake & Output 08/24/18 08/25/18 08/26/18 06:59 06:59 06:59 Intake Total 1475 1920 Output Total 375 875 Balance 1100 1045 Weight 72.9 kg 73.6 kg General appearance: PRESENT: no acute distress, thin Head exam: PRESENT: normocephalic Respiratory exam: PRESENT: clear to auscultation clare Cardiovascular exam: PRESENT: RRR Neurological exam: PRESENT: alert, awake Psychiatric exam: PRESENT: appropriate affect Skin exam: PRESENT: normal color Results Laboratory Results: 08/23/18 14:27 08/23/18 14:27 08/23/18 08/23/18 08/23/18 14:04 14:27 14:27 Creatine Kinase Cancelled 21 L Troponin I < 0.012 Impressions: Chest X-Ray 08/23/18 13:16 IMPRESSION: Findings worrisome for postobstructive pneumonia in the left upper lobe related to left hilar mass Abdomen/Pelvis CT 08/23/18 14:48 IMPRESSION: Malignant appearing left hilar mass with postobstructive collapse and consolidation left upper lobe. Bony metastatic lesions in the sternum and L5 vertebral body Malignant appearing Mediastinal and retroperitoneal lymph nodes. Multiple peritoneal implants without ascites. Chest CT 08/23/18 14:48 IMPRESSION: Malignant appearing left hilar mass with postobstructive collapse and consolidation left upper lobe. Bony metastatic lesions in the sternum and L5 vertebral body Malignant appearing Mediastinal and retroperitoneal lymph nodes. Multiple pe ritoneal implants without ascites. Head MRI 08/24/18 00:00 IMPRESSION: Innumerable enhancing lesions consistent with extensive metastatic disease to the infratentorial and supratentorial brain, as above. Mild associated mass effect. No midline shift. copyright 2011 [employer]- All Rights Reserved Assessment & Plan - Diagnosis (1) Lung mass Is this a current diagnosis for this admission?: Yes Plan: Most likely lung cancer. I have asked pulmonary to see patient to see if bronchoscopy can be obtained. I will also ask interventional radiology for their opinion. (2) Brain metastases Is this a current diagnosis for this admission?: Yes Plan: MRI with multiple lesions consistent with brain mets. This most likely explains the balance problems. I will start Dex 8 mg BID and consult radiation oncology for possible whole brain radiation therapy. - Plan Summary Plan Summary: Further recommendations after pathology is known.
[2018-08-25 09:17] LABS: INTERNATIONAL RATION (INR) 0.95; PARTIAL THROMBOPLASTIN TIME 30.5 SEC (23.5-35.8); PROTHROMBIN TIME 13.1 SEC (11.4-15.4)
[2018-08-25] MEDS ORDERED: DEXAMETHASONE 4 MG TABLET PO SCH (10:00)
[2018-08-25] MEDS ORDERED: DEXAMETHASONE SOD PHOS INJ 10 MG/1 ML VIAL IV SCH (10:00)
[2018-08-25] MEDS: FAMOTIDINE 20 MG TABLET PO SCH ×2 (10:29→21:36)
[2018-08-25] MEDS: DEXAMETHASONE 4 MG TABLET PO SCH ×2 (10:30→21:36)
--- NOTE | 2018-08-25 16:42 | PDOC PROGRESS REPORT ---
Subjective Progress Note for:: 08/25/18 Subjective:: No adverse events overnight. His appetite has really improved since the Decadron was started. He has no complaints of pain. No dyspnea. Reason For Visit: SUSPECTED METASTATIC LUNG CANCER Physical Exam Vital Signs: Temp Pulse Resp BP Pulse Ox 98.4 F 72 18 118/79 98 08/25/18 15:48 08/25/18 15:48 08/25/18 15:48 08/25/18 15:48 08/25/18 15:48 Intake & Output 08/24/18 08/25/18 08/26/18 06:59 06:59 06:59 Intake Total 1475 1920 680 Output Total 375 875 Balance 1100 1045 680 Weight 72.9 kg 73.6 kg General appearance: PRESENT: no acute distress, cooperative, disheveled, thin Respiratory exam: PRESENT: rhonchi - Left base, unlabored. ABSENT: accessory muscle use, crackles, tachypnea, wheezes Cardiovascular exam: PRESENT: RRR, +S1, +S2 Vascular exam: PRESENT: normal capillary refill GI/Abdominal exam: PRESENT: normal bowel sounds, soft. ABSENT: distended, guarding, rebound, tenderness Extremities exam: ABSENT: clubbing, pedal edema Musculoskeletal exam: PRESENT: normal inspection. ABSENT: deformity Neurological exam: PRESENT: alert, awake, oriented to person, oriented to place, oriented to time Psychiatric exam: PRESENT: appropriate affect, normal mood Skin exam: PRESENT: dry, warm Results Laboratory Results: 08/23/18 14:27 08/23/18 14:27 08/23/18 08/23/18 08/23/18 14:04 14:27 14:27 Creatine Kinase Cancelled 21 L Troponin I < 0.012 Impressions: Chest X-Ray 08/23/18 13:16 IMPRESSION: Findings worrisome for postobstructive pneumonia in the left upper lobe related to left hilar mass Abdomen/Pelvis CT 08/23/18 14:48 IMPRESSION: Malignant appearing left hilar mass with postobstructive collapse and consolidation left upper lobe. Bony metastatic lesions in the sternum and L5 vertebral body Malignant appearing Mediastinal and retroperitoneal lymph nodes. Multiple peritoneal implants without ascites. Chest CT 08/23/18 14:48 IMPRESSION: Malignant appearing left hilar mass with postobstructive collapse and consolidation left upper lobe. Bony metastatic lesions in the sternum and L5 vertebral body Malignant appearing Mediastinal and retroperitoneal lymph nodes. Multiple peritoneal implants without ascites. Head MRI 08/24/18 00:00 IMPRESSION: Innumerable enhancing lesions consistent with extensive metastatic disease to the infratentorial and supratentorial brain, as above. Mild associated mass effect. No midline shift. copyright 2010 [employer]- All Rights Reserved Assessment & Plan - Diagnosis (1) Type II diabetes mellitus Qualifiers: Diabetes mellitus half-way insulin use: without stock preparation operator use Diabetes mellitus complication status: with unspecified complications Qualified Code(s): E11.8 - Type 2 diabetes mellitus with unspecified complications Is this a current diagnosis for this admission?: Yes Plan: Continue his home medications and a consistent carbohydrate diet (2) Widespread metastatic malignant neoplastic disease Is this a current diagnosis for this admission?: Yes Plan: He also had brain metastases seen on MRI. He has been started on Decadron. Pulmonology has been consulted and are planning to do bronchoscopy tomorrow in an attempt to obtain a biopsy specimen. - Time Time Spent with patient: 15-24 minutes
[2018-08-25] MEDS ORDERED: DEXTROSE 40% GEL 15 GM TUBE PO PRN ×2 (19:41)
[2018-08-25] MEDS ORDERED: DEXTROSE 50%-WATER 25 GM/50 ML DISP.SYRIN IV PRN ×2 (19:41)
[2018-08-25] MEDS ORDERED: GLUCAGON,HUMAN RECOMB 1 MG INJ SUBCUT PRN (19:41)
[2018-08-26 05:54] LABS: ABSOLUTE LYMPHOCYTES (AUTO) 0.8 10^3/uL (0.5-4.7); ABSOLUTE MONOCYTES (AUTO) 0.5 10^3/uL (0.1-1.4); ABSOLUTE NEUT (AUTO) 5.4 10^3/uL (1.7-8.2); BASOPHILS % (AUTO) 0.1 % (0-2); HEMATOCRIT 37.7 % (37.9-51.0); LYMPHOCYTES % (AUTO) 11.6 % (13-45); MEAN CORPUSCULAR HEMOGLOBIN 28.8 pg (27.0-33.4); MEAN CORPUSCULAR HGB CONC 34.8 g/dL (32.0-36.0); MEAN CORPUSCULAR VOLUME 83 fl (80-97); MONOCYTES % (AUTO) 6.8 % (3-13); PLATELET COUNT 185 10^3/uL (150-450); RED BLOOD COUNT 4.57 10^6/uL (4.35-5.55); RED CELL DISTRIBUTION WIDTH 15.1 % (11.5-14.0); SEGMENTED NEUTROPHILS % (AUTO) 81.5 % (42-78); TOTAL CELLS COUNTED % (AUTO) 100 %; WHITE BLOOD COUNT 6.6 10^3/uL (4.0-10.5)
[2018-08-26 06:14] LABS: ANION GAP 5 (5-19); BLOOD UREA NITROGEN 15 mg/dL (7-20); CALCIUM 8.8 mg/dL (8.4-10.2); CARBON DIOXIDE 27 mmol/L (22-30); CHLORIDE 102 mmol/L (98-107); GLUCOSE 252 mg/dL (75-110); HEMOGLOBIN 13.1 g/dL (13.5-17.0); SODIUM 134.2 mmol/L (137-145)
[2018-08-26] MEDS ORDERED: DIPHENHYDRAMINE HCL 50 MG/ML VIAL ONE (07:53)
[2018-08-26] MEDS ORDERED: ONDANSETRON HCL INJ/PF 4 MG/2 ML SDV ONE (07:53)
[2018-08-26] MEDS ORDERED: FLUMAZENIL INJ 0.5 MG/5 ML VIAL ONE (07:54)
[2018-08-26] MEDS ORDERED: NALOXONE HCL INJ/PF 0.4 MG/1 ML SDV ONE (07:54)
[2018-08-26] MEDS ORDERED: GLUCAGON,HUMAN RECOMB 1 MG INJ ONE (07:54)
[2018-08-26] MEDS ORDERED: EPINEPHRINE INJ 1 MG/10 ML DISP.SYRIN ONE (07:54)
[2018-08-26] MEDS ORDERED: LIDOCAINE 2% INJ (20 MG/ML) 20 ML MDV ONE (08:08)
[2018-08-26] MEDS ORDERED: BENZOCAINE 20% AEROSOL SPRAY 60 GM ONE (08:08)
[2018-08-26] MEDS ORDERED: LIDOCAINE 1% INJ-PF (10 MG/ML) 30 ML SDV ONE (08:08)
--- NOTE | 2018-08-26 08:26 | PDOC PROGRESS REPORT ---
Subjective Progress Note for:: 08/26/18 Subjective:: Patient states he is ready to go home. He is tired of being poked and prodded. Nurses report that he has not been up walking. Physical therapy has not yet evaluated him. He is scheduled for bronchoscopy this morning and is scheduled to start his radiation therapy Tues. Reason For Visit: SUSPECTED METASTATIC LUNG CANCER Physical Exam Vital Signs: Temp Pulse Resp BP Pulse Ox 97.7 F 65 14 120/72 98 08/26/18 07:51 08/26/18 07:51 08/26/18 07:51 08/26/18 07:51 08/26/18 07:51 Intake & Output 08/25/18 08/26/18 08/27/18 06:59 06:59 06:59 Intake Total 1920 946 Output Total 875 400 Balance 1045 546 Weight 73.6 kg 73.8 kg General appearance: PRESENT: no acute distress Head exam: PRESENT: normocephalic Respiratory exam: PRESENT: unlabored Neurological exam: PRESENT: alert, awake Psychiatric exam: PRESENT: agitated Skin exam: PRESENT: normal color Results Laboratory Results: 08/26/18 04:56 08/26/18 04:56 08/26/18 08/26/18 04:56 04:56 WBC 6.6 RBC 4.57 Hgb 13.1 L D Hct 37.7 L MCV 83 MCH 28.8 MCHC 34.8 RDW 15.1 H Plt Count 185 Seg Neutrophils % 81.5 H Lymphocytes % 11.6 L Monocytes % 6.8 Eosinophils % 0.0 Basophils % 0.1 Absolute Neutrophils 5.4 Absolute Lymphocytes 0.8 Absolute Monocytes 0.5 Absolute Eosinophils 0.0 Absolute Basophils 0.0 Sodium 134.2 L Potassium 4.0 Chloride 102 Carbon Dioxide 27 Anion Gap 5 BUN 15 Creatinine 0.65 Est GFR ( Amer) > 60 Est GFR (Non-Af Amer) > 60 Glucose 252 H Calcium 8.8 08/23/18 08/23/18 08/23/18 14:04 14:27 14:27 Creatine Kinase Cancelled 21 L Troponin I < 0.012 Impressions: Chest X-Ray 08/23/18 13:16 IMPRESSION: Findings worrisome for postobstructive pneumonia in the left upper lobe related to left hilar mass Abdomen/Pelvis CT 08/23/18 14:48 IMPRESSION: Malignant appearing left hilar mass with postobstructive collapse and consolidation left upper lobe. Bony metastatic lesions in the sternum and L5 vertebral body Malignant appearing Mediastinal and retroperitoneal lymph nodes. Multiple peritoneal implants without ascites. Chest CT 08/23/18 14:48 IMPRESSION: Malignant appearing left hilar mass with postobstructive collapse and consolidation left upper lobe. Bony metastatic lesions in the sternum and L5 vertebral body Malignant appearing Mediastinal and retroperitoneal lymph nodes. Multiple peritoneal implants without ascites. Head MRI 08/24/18 00:00 IMPRESSION: Innumerable enhancing lesions consistent with extensive metastatic disease to the infratentorial and supratentorial brain, as above. Mild associated mass effect. No midline shift. copyright 2011 [employer]- All Rights Reserved Assessment & Plan - Diagnosis (1) Lung mass Is this a current diagnosis for this admission?: Yes Plan: Bronchoscopy today. Hope that this will provide a diagnosis. Will need several cores to evaluate markers for lung cancer. (2) Brain metastases Is this a current diagnosis for this admission?: Yes Plan: To begin brain radiation therapy. He is on Dex 8 mg BID for now. He will need PT evaluation for safety in ambulating prior to discharge and will need family to transport him to his radiation therapy. Once all this has been arranged, then he may be discharged. - Plan Summary Plan Summary: I spoke with his daughter last night. She is aware of diagnosis and treatment plans, but she states that he may not always be truthful and may show some evidence of confabulation. I will see him again in 1 week as out patient. If pathology does not give conclusive diagnosis, may need EBUS.
[2018-08-26] MEDS: MIDAZOLAM 2 MG/2 ML INJ ONE ×5 (09:10→09:20)
[2018-08-26] MEDS: FENTANYL CITRATE INJ/PF 100 MCG/2 ML AMPUL ONE ×2 (09:18→09:25)
--- NOTE | 2018-08-26 09:28 | CONSULTATION REPORT E ---
Consultation Report NAME: ELIAS GRIFFIN : 1945 AGE: 73Y DATE: 08/25/2018 406 A TO: JOSÉ MONTANA M.D. FROM: ARA hale MD Requesting Physician HISTORY OF PRESENT ILLNESS: The patient is a 73-year-old white male who came in with weakness, severe anorexia, and dizziness. The patient has one week history of difficulty walking and gentle balance problems and weakness and dizziness. Denies any fever. Denies any increasing cough or purulent sputum production. Denies any chest pain. Has episodes of nausea. Had a chest x-ray done in the emergency room, felt to have a large lung mass and collapsed lung due to post-obstructive pneumonia. The chest CT scan of the right upper lobe during this admission. PAST MEDICAL HISTORY: 1. History of hyperlipidemia. 2. Hypertension. 3. Diabetes mellitus. 4. No history of depression. SURGICAL HISTORY: Cholecystectomy. SOCIAL HISTORY: Retired boom truck driver. The patient currently smokes 1 cigarette per day. Denies any alcohol abuse or illicit drug use. with 2 kids and 3 grandkids. FAMILY HISTORY: His father at the age of 54 of [place]. Mother at age 55 of brain tumor. HOME MEDICATIONS: Include: 1. Aspirin. 2. Atorvastatin. 3. Lasix. 4. Lisinopril. 5. Metformin. 6. Metoprolol. 7. Flomax. ALLERGIES: No known drug allergies. REVIEW OF SYSTEMS: No fever, chills, or headache. No blurred vision or visual disturbances. EARS: Denies any hearing problems. NOSE, MOUTH AND THROAT: Denies any sore throat or neck pain. CARDIOVASCULAR: No angina. No history of heart attack. RESPIRATORY: Denies any hemoptysis or purulent sputum production. Denies any increasing cough. Slightly short of breath. GASTROINTESTINAL: No nausea, vomiting, diarrhea. GENITOURINARY: No dysuria or hematuria. EXTREMITIES: No joint swelling. No cellulitis. PHYSICAL EXAMINATION: GENERAL: The patient is awake, alert, oriented x3. VITAL SIGNS: Temperature is 98.4 with a T-max of 98.9, pulse rate 72, blood pressure 118/79, respiratory rate 18, and oxygen saturation 98% on room air. EYES: No jaundice or pallor. EARS, NOSE, AND THROAT: No ear drainage. No nasal discharge. CHEST/LUNGS: No wheezing, no rhonchi, no coarse crackles. CARDIOVASCULAR: S1, S2 distinct. Normal rate, regular rhythm. ABDOMEN: Flabby. Positive bowel sounds. Soft, nondistended, nontender. EXTREMITIES: No joint swelling. No cellulitis. LABORATORY: CBC done on 08/23/2018 showed white count of 9.9, hemoglobin is 15.7, hematocrit is 34.6, platelet count is 209. PT/INR 08/25/2018 today showed PT of 13.1, INR 0.95, and PTT is 30.5, which is normal. Chemistry done 2 days ago showed sodium is 132.9, potassium is 4.2, chloride 96, CO2 is 25, BUN 20, creatinine 0.64, glucose 188, lipase 113, phosphorus 9.3, and magnesium is 2.2. Total bilirubin is 0.8 and direct bilirubin is 0.5. His GPT is 17, alkaline phosphatase 166. Total pH is 280, creatinine is 21, total protein 6.1, free T3 is 1.5 and free T4 is 1.64. Chest x-ray done today showed mass involving the left upper lobe, possibly due to post-obstructive atelectasis.. ASSESSMENT: 1. Large left upper lobe mass with large left hilar mass. 2. Malignancy, highly suspicious, with adrenal metastasis, and brain metastasis. 3. Smoking history. PLAN/RECOMMENDATIONS: 1. Will see the patient for possible bronchoscopy tomorrow with endobronchial or lung biopsy. 2. Will place patient n.p.o. tonight and will repeat the CBC, chemistry at 5:00 in the morning. DICTATING PHYSICIAN: JOSÉ MONTANA MD,YOSI,MPH [id number] PHY#: [id number] ID: [id number] JOB#: [id number] ACCT: [id number] cc:JOSÉ MONTANA M.D. > NICOLETTE
[2018-08-26] MEDS ORDERED: EPINEPHRINE INJ/PF 1 MG/1 ML AMPULE ONE (09:33)
[2018-08-26] MEDS: DEXAMETHASONE 4 MG TABLET PO SCH ×2 (12:39→23:02)
[2018-08-26] MEDS: FAMOTIDINE 20 MG TABLET PO SCH ×2 (12:40→23:00)
[2018-08-26] MEDS: INSULIN LISPRO 100 UNIT/ML 3 ML VIAL SUBCUT PRN ×3 (12:40→23:00)
--- NOTE | 2018-08-26 12:55 | EKG REPORT ---
SEVERITY:- ABNORMAL ECG - SINUS RHYTHM RIGHT BUNDLE BRANCH BLOCK : Confirmed by: Bernardino Wing 26-Aug-2018 12:54:05
[2018-08-26] MEDS: NORMAL SALINE 1000 ML 1,000 ML IV PRN ×2 (14:27→23:00)
--- NOTE | 2018-08-26 17:09 | PDOC PROGRESS REPORT ---
Subjective Progress Note for:: 08/26/18 Subjective:: No adverse events overnight. He had his bronchoscopy today and seemed to tolerate the procedure well. His appetite is been good since he started on the Decadron. He still feels fairly weak. Reason For Visit: SUSPECTED METASTATIC LUNG CANCER Physical Exam Vital Signs: Temp Pulse Resp BP Pulse Ox 98.3 F 81 18 103/64 96 08/26/18 16:00 08/26/18 16:00 08/26/18 16:00 08/26/18 16:00 08/26/18 16:00 Intake & Output 08/25/18 08/26/18 08/27/18 06:59 06:59 06:59 Intake Total 1920 946 400 Output Total 875 400 Balance 1045 546 400 Weight 73.6 kg 73.8 kg General appearance: PRESENT: no acute distress, cooperative, disheveled, thin Respiratory exam: PRESENT: rhonchi - Left base, unlabored. ABSENT: accessory muscle use, crackles, tachypnea, wheezes Cardiovascular exam: PRESENT: RRR, +S1, +S2 Vascular exam: PRESENT: normal capillary refill GI/Abdominal exam: PRESENT: normal bowel sounds, soft. ABSENT: distended, guarding, rebound, tenderness Extremities exam: ABSENT: clubbing, pedal edema Musculoskeletal exam: PRESENT: normal inspection. ABSENT: deformity Neurological exam: PRESENT: alert, awake, oriented to person, oriented to place, oriented to time Psychiatric exam: PRESENT: appropriate affect, normal mood Skin exam: PRESENT: dry, warm Results Laboratory Results: 08/26/18 04:56 08/26/18 04:56 08/26/18 08/26/18 04:56 04:56 WBC 6.6 RBC 4.57 Hgb 13.1 L D Hct 37.7 L MCV 83 MCH 28.8 MCHC 34.8 RDW 15.1 H Plt Count 185 Seg Neutrophils % 81.5 H Lymphocytes % 11.6 L Monocytes % 6.8 Eosinophils % 0.0 Basophils % 0.1 Absolute Neutrophils 5.4 Absolute Lymphocytes 0.8 Absolute Monocytes 0.5 Absolute Eosinophils 0.0 Absolute Basophils 0.0 Sodium 134.2 L Potassium 4.0 Chloride 102 Carbon Dioxide 27 Anion Gap 5 BUN 15 Creatinine 0.65 Est GFR ( Amer) > 60 Est GFR (Non-Af Amer) > 60 Glucose 252 H Calcium 8.8 08/23/18 08/23/18 08/23/18 14:04 14:27 14:27 Creatine Kinase Cancelled 21 L Troponin I < 0.012 Impressions: Chest X-Ray 08/23/18 13:16 IMPRESSION: Findings worrisome for postobstructive pneumonia in the left upper lobe related to left hilar mass Abdomen/Pelvis CT 08/23/18 14:48 IMPRESSION: Malignant appearing left hilar mass with postobstructive collapse and consolidation left upper lobe. Bony metastatic lesions in the sternum and L5 vertebral body Malignant appearing Mediastinal and retroperitoneal lymph nodes. Multiple peritoneal implants without ascites. Chest CT 08/23/18 14:48 IMPRESSION: Malignant appearing left hilar mass with postobstructive collapse and consolidation left upper lobe. Bony metastatic lesions in the sternum and L5 vertebral body Malignant appearing Mediastinal and retroperitoneal lymph nodes. Multiple peritoneal implants without ascites. Head MRI 08/24/18 00:00 IMPRESSION: Innumerable enhancing lesions consistent with extensive metastatic disease to the infratentorial and supratentorial brain, as above. Mild associated mass effect. No midline shift. copyright 2011 [employer]- All Rights Reserved Assessment & Plan - Diagnosis (1) Widespread metastatic malignant neoplastic disease Is this a current diagnosis for this admission?: Yes Plan: He had a bronchoscopy today to get a biopsy. He is scheduled to start whole brain radiation on Tuesday. He is very weak and so were going to have him evaluated by physical therapy to see if he needs facility placement. (2) Type II diabetes mellitus Qualifiers: Diabetes mellitus buttermaker continuous churn insulin use: without fdc use Diabetes mellitus complication status: with unspecified complications Qualified Code(s): E11.8 - Type 2 diabetes mellitus with unspecified complications Is this a current diagnosis for this admission?: Yes Plan: Continue his home medications and a consistent carbohydrate diet - Time Time Spent with patient: 15-24 minutes
[2018-08-26] MEDS: HEPARIN SOD (PORCINE) 5,000 UNIT/ML 1 ML SYRINGE SUBCUT SCH (23:00)
[2018-08-27] MEDS: HEPARIN SOD (PORCINE) 5,000 UNIT/ML 1 ML SYRINGE SUBCUT SCH ×3 (05:46→21:32)
[2018-08-27] MEDS: INSULIN LISPRO 100 UNIT/ML 3 ML VIAL SUBCUT PRN ×4 (08:34→23:06)
[2018-08-27] MEDS: DEXAMETHASONE 4 MG TABLET PO SCH ×2 (10:36→21:31)
[2018-08-27] MEDS: FAMOTIDINE 20 MG TABLET PO SCH ×2 (10:36→21:31)
[2018-08-27] MEDS: METFORMIN HCL 500 MG TABLET PO SCH ×2 (10:36→16:59)
[2018-08-27] MEDS: ASPIRIN 81 MG TABLET, ENT COATED PO SCH (10:36)
[2018-08-27] MEDS: NORMAL SALINE 1000 ML 1,000 ML IV PRN (14:14)
--- NOTE | 2018-08-27 15:53 | PDOC PROGRESS REPORT ---
Subjective Progress Note for:: 08/27/18 Subjective:: No adverse events overnight. No new complaints. He was able to get out of bed and get into the chair today with assistance. His appetite is good and he has been eating and drinking without difficulty. No nausea or vomiting. Reason For Visit: SUSPECTED METASTATIC LUNG CANCER Physical Exam Vital Signs: Temp Pulse Resp BP Pulse Ox 98.1 F 80 20 111/61 100 08/27/18 12:00 08/27/18 12:00 08/27/18 12:00 08/27/18 12:00 08/27/18 12:00 Intake & Output 08/26/18 08/27/18 08/28/18 06:59 06:59 06:59 Intake Total 946 1755 1586 Output Total 400 400 Balance 546 1355 1586 Weight 73.8 kg 75 kg General appearance: PRESENT: no acute distress, cooperative, disheveled, thin Respiratory exam: PRESENT: rhonchi - Left base, unlabored. ABSENT: accessory muscle use, crackles, tachypnea, wheezes Cardiovascular exam: PRESENT: RRR, +S1, +S2 Vascular exam: PRESENT: normal capillary refill GI/Abdominal exam: PRESENT: normal bowel sounds, soft. ABSENT: distended, guarding, rebound, tenderness Extremities exam: ABSENT: clubbing, pedal edema Musculoskeletal exam: PRESENT: normal inspection. ABSENT: deformity Neurological exam: PRESENT: alert, awake, oriented to person, oriented to place, oriented to time Psychiatric exam: PRESENT: appropriate affect, normal mood Skin exam: PRESENT: dry, warm Results Laboratory Results: 08/26/18 04:56 08/26/18 04:56 08/23/18 08/23/18 08/23/18 14:04 14:27 14:27 Creatine Kinase Cancelled 21 L Troponin I < 0.012 Impressions: Chest X-Ray 08/23/18 13:16 IMPRESSION: Findings worrisome for postobstructive pneumonia in the left upper lobe related to left hilar mass Abdomen/Pelvis CT 08/23/18 14:48 IMPRESSION: Malignant appearing left hilar mass with postobstructive collapse and consolidation left upper lobe. Bony metastatic lesions in the sternum and L5 vertebral body Malignant appearing Mediastinal and retroperitoneal lymph nodes. Multiple peritoneal implants without ascites. Chest CT 08/23/18 14:48 IMPRESSION: Malignant appearing left hilar mass with postobstructive collapse and consolidation left upper lobe. Bony metastatic lesions in the sternum and L5 vertebral body Malignant appearing Mediastinal and retroperitoneal lymph nodes. Multiple peritoneal implants without ascites. Head MRI 08/24/18 00:00 IMPRESSION: Innumerable enhancing lesions consistent with extensive metastatic disease to the infratentorial and supratentorial brain, as above. Mild associated mass effect. No midline shift. copyright 2010 [email or web address]- All Rights Reserved Assessment & Plan - Diagnosis (1) Widespread metastatic malignant neoplastic disease Is this a current diagnosis for this admission?: Yes Plan: He had a bronchoscopy to get a biopsy. He is scheduled to start whole brain radiation on Tuesday. He is very weak and so were going to have him evaluated by physical therapy to see if he needs facility placement. I have not seen the official evaluation yet, but I suspect he will probably need placement for short-term. (2) Type II diabetes mellitus Qualifiers: Diabetes mellitus assisted insulin use: without roasterman use Diabetes mellitus complication status: with unspecified complications Qualified Code(s): E11.8 - Type 2 diabetes mellitus with unspecified complications Is this a current diagnosis for this admission?: Yes Plan: Continue his home medications and a consistent carbohydrate diet - Time Time Spent with patient: 15-24 minutes
--- NOTE | 2018-08-27 17:37 | PROGRESS NOTE E ---
Progress Note NAME: ELIAS GRIFFIN : 1945 AGE: 73Y DATE: 08/27/2018 ROOM: 406 SUBJECTIVE: Patient is a 73-year-old male who came in with left upper lobe mass, post obstructive atelectasis, left hilar and mediastinal lymphadenopathy, adrenal and brain mets. Underwent flexible bronchoscopy yesterday. Able to get about 6 endobronchial biopsy specimens. Patient tolerated the procedure well. Denies any hemoptysis in the last 24 hours. No fever, no chills. No nausea, no vomiting. No chest pain, no worsening dyspnea. OBJECTIVE: GENERAL: Patient awake, alert, coherent, oriented x3, afebrile, not in apparent respiratory distress. VITAL SIGNS: Temperature of 98.1, with a T-max of 98.3. Blood pressure is 111/61, heart rate of 80, respirations 20, saturation is 100% on room air. EYES: No jaundice or pallor. EARS, NOSE AND THROAT: No ear drainage. No nasal discharge. CHEST AND LUNGS: No wheezing, no rhonchi, no coarse crackles. CARDIOVASCULAR: S1, S2 distinct. No murmurs. Regular rate. ABDOMEN: Flabby. Positive bowel sounds. Soft, nondistended, nontender. EXTREMITIES: No joint swelling. LABORATORY DATA: No CBC or chemistry done today. ASSESSMENT: LEFT UPPER LOBE MASS WITH POST OBSTRUCTIVE ATELECTASIS WITH ENDOBRONCHIAL LESIONS, STATUS POST ENDOBRONCHIAL BIOPSY X6 DURING FLEXIBLE BRONCHOSCOPY. Patient doing well. Tolerated flexible bronchoscopy. PLAN/RECOMMENDATIONS: 1. Will wait for the biopsy results. 2. Bronchial washing cultures still pending. 3. Continue current medications. DICTATING PHYSICIAN: JOSÉ MONTANA MD,YOSI,MPH [id number] PHY#: [id number] ID: [id number] JOB#: [id number] ACCT: [id number] cc: > MTDD
[2018-08-28] MEDS: NORMAL SALINE 1000 ML 1,000 ML IV PRN ×3 (01:46→19:45)
[2018-08-28] MEDS: HEPARIN SOD (PORCINE) 5,000 UNIT/ML 1 ML SYRINGE SUBCUT SCH ×3 (05:15→22:17)
--- NOTE | 2018-08-28 07:45 | OPERATIVE REPORT E ---
Operative Report NAME: ELIAS GRIFFIN : 1945 AGE: 73Y DATE OF SURGERY: 08/26/2018 ROOM: 406 PREOPERATIVE DIAGNOSIS: The patient is a 73-year-old male presenting with left upper lobe mass with hilar /mediastinal lymphadenopathy, adrenal mets and brain mets. No previous tissue diagnosis. Scheduled for flexible bronchoscopy. 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 OPERATION: Flexible bronchoscopy with endobronchial biopsy left bronchus intermedius. INDICATION: Left upper lobe mass with hilar/mediastinal lymphadenopathy. SURGEON: JOSÉ MONTANA M.D. ESTIMATED BLOOD LOSS: Less than 1 mL. COMPLICATIONS: None. ANESTHESIA: Conscious sedation using Versed, total dose of 2.5 mg IV and fentanyl total dose of 50 mcg IV. Topical anesthesia using 2% lidocaine solution, total dose of 5 mL and 1% lidocaine solution total dose of 10 mL. Hurricaine spray x11 sprays. PROCEDURE: Consent was obtained from the patient. The patient verbalized understanding of the indications, risks and complications of the procedure such as bleeding, infection, pneumothorax, chest pains or myocardial ischemia. The patient was connected to the hospital monitor, respiratory monitor, blood pressure monitor, pulse oximetry. The patient was given 2 liters of oxygen during the procedure. 2% lidocaine solution 5 mL was given via nebulizer and 2% lidocaine solution 3 mL was given by atomizer. The patient was given Versed at increments of 0.5 mg, total dose of 2.5 mg and fentanyl at increments of 25 mcg for a total dose of 50 mcg. Flexible bronchoscope was inserted through the mouth guard. 1% lidocaine solution was given as the flexible bronchoscope was advanced to the vocal cords, trachea, annita, right mainstem bronchus and left mainstem bronchus. The vocal cord appeared normal. There was some thrush noted around the oropharyngeal airway. Trachea showed whitish patches, suggestive of thrush. Annita is sharp at the midline. Right mainstem bronchus, bronchus intermedius, and segmental airway appeared normal. Left mainstem bronchus appeared normal, but the bronchus intermedius showed polypoid lesions which were friable and bled easily. Endobronchial biopsy was performed about 6 times in the bronchial lesions. Bleeding appeared to be stopped using cold saline solution. No active bleeding was noted at the end of the procedure. No adverse events noted during the procedure. DICTATING PHYSICIAN: JOSÉ MONTANA MD,YOSI,MPH [id number] [id number] PHY#: [id number] ID: [id number] JOB#: [id number] ACCT: [id number] cc:JOSÉ MONTANA M.D. > MTDD
--- NOTE | 2018-08-28 07:46 | PROGRESS NOTE E ---
Progress Note NAME: ELIAS GRIFFIN : 1945 AGE: 73Y DATE: 08/26/2018 ROOM: 406 SUBJECTIVE: The patient is a 73-year-old white male presenting with a left upper lobe mass with left upper lobe atelectasis and left hilar adenopathy and mediastinal adenopathy with adrenal mets and brain mets. Did well overnight. Denies any chest pain, nausea, vomiting in the last 24 hours. No hemoptysis noted. No sputum production. No worsening dyspnea. OBJECTIVE: GENERAL: The patient is awake, alert, oriented x3. VITAL SIGNS: Temperature 97.7, T-max 98.4, blood pressure 111/78, respiratory rate 16, heart rate 68, saturation 92% on room air. HEENT: Eyes: No jaundice or pallor. ENT: No ear drainage, no nasal discharge. CHEST AND LUNGS: No wheezing. Decreased breath sounds in upper lobe. No course crackles noted. CARDIAC: S1, S2 distinct. No murmur. normal rate and regular rhythm. ABDOMEN: Flabby, positive bowel sounds, soft, nondistended, nontender. EXTREMITIES: No joint swelling, no cellulitis. LABORATORY: Done today: White count 6.6, hemoglobin 13.1, hematocrit 37%, platelet count 185. PT done yesterday was 13.1, INR 0.95, PTT 30.5. Chemistry done this morning showed sodium 134, potassium 4, chloride 102, CO2 is 27, BUN 15, creatinine 0.65, glucose 252, calcium 8.8. ASSESSMENT: 1. LEFT UPPER LOBE MASS WITH ROCIO ATELECTASIS. LEFT MEDIASTINAL ADENOPATHY AND LEFT HILAR ADENOPATHY. BRAIN METASTASES. 2. SMOKING HISTORY. PLAN: 1. The patient is scheduled for flexible bronchoscope today, and possible endobronchial biopsy. 2. Continue current medications. DICTATING PHYSICIAN: JOSÉ MONTANA MD,YOSI,MPH [id number] [id number] PHY#: [id number] ID: [id number] JOB#: [id number] ACCT: [id number] cc: > MTDD
[2018-08-28] MEDS: INSULIN LISPRO 100 UNIT/ML 3 ML VIAL SUBCUT PRN ×2 (08:54→15:29)
[2018-08-28] MEDS: METFORMIN HCL 500 MG TABLET PO SCH ×2 (08:54→17:38)
[2018-08-28] MEDS: ASPIRIN 81 MG TABLET, ENT COATED PO SCH (08:54)
[2018-08-28] MEDS: FAMOTIDINE 20 MG TABLET PO SCH (08:54)
[2018-08-28] MEDS: DEXAMETHASONE 4 MG TABLET PO SCH ×2 (08:54→23:21)
--- NOTE | 2018-08-28 16:14 | PDOC PROGRESS REPORT ---
Subjective Progress Note for:: 08/28/18 Subjective:: No adverse events overnight. No new complaints. Vital signs been stable. Appetite is good. No nausea or vomiting. No complaints of pain. Reason For Visit: SUSPECTED METASTATIC LUNG CANCER Physical Exam Vital Signs: Temp Pulse Resp BP Pulse Ox 98.3 F 69 16 109/60 97 08/28/18 11:42 08/28/18 11:42 08/28/18 11:42 08/28/18 11:42 08/28/18 11:42 Intake & Output 08/27/18 08/28/18 08/29/18 06:59 06:59 06:59 Intake Total 1755 3814 713 Output Total 400 375 Balance 1355 3439 713 Weight 75 kg 75 kg General appearance: PRESENT: no acute distress, cooperative, disheveled, thin Respiratory exam: PRESENT: rhonchi - Left base, unlabored. ABSENT: accessory muscle use, crackles, tachypnea, wheezes Cardiovascular exam: PRESENT: RRR, +S1, +S2 Vascular exam: PRESENT: normal capillary refill GI/Abdominal exam: PRESENT: normal bowel sounds, soft. ABSENT: distended, guarding, rebound, tenderness Extremities exam: ABSENT: clubbing, pedal edema Musculoskeletal exam: PRESENT: normal inspection. ABSENT: deformity Neurological exam: PRESENT: alert, awake, oriented to person, oriented to place, oriented to time Psychiatric exam: PRESENT: appropriate affect, normal mood Skin exam: PRESENT: dry, warm Results Laboratory Results: 08/26/18 04:56 08/26/18 04:56 08/26/18 09:45 Bronchial Washings Gram Stain - Final 08/26/18 09:45 Bronchial Washings Bronchial Washings Culture - Final NORMAL ANGELA 08/23/18 14:27 Blood Blood Culture - Final NO GROWTH IN 5 DAYS 08/23/18 14:04 Blood Blood Culture - Final NO GROWTH IN 5 DAYS 08/23/18 08/23/18 08/23/18 14:04 14:27 14:27 Creatine Kinase Cancelled 21 L Troponin I < 0.012 Impressions: Chest X-Ray 08/23/18 13:16 IMPRESSION: Findings worrisome for postobstructive pneumonia in the left upper lobe related to left hilar mass Abdomen/Pelvis CT 08/23/18 14:48 IMPRESSION: Malignant appearing left hilar mass with postobstructive collapse and consolidation left upper lobe. Bony metastatic lesions in the sternum and L5 vertebral body Malignant appearing Mediastinal and retroperitoneal lymph nodes. Multiple peritoneal implants without ascites. Chest CT 08/23/18 14:48 IMPRESSION: Malignant appearing left hilar mass with postobstructive collapse and consolidation left upper lobe. Bony metastatic lesions in the sternum and L5 vertebral body Malignant appearing Mediastinal and retroperitoneal lymph nodes. Multiple peritoneal implants without ascites. Head MRI 08/24/18 00:00 IMPRESSION: Innumerable enhancing lesions consistent with extensive metastatic disease to the infratentorial and supratentorial brain, as above. Mild associated mass effect. No midline shift. copyright 2011 [employer]- All Rights Reserved Assessment & Plan - Diagnosis (1) Widespread metastatic malignant neoplastic disease Is this a current diagnosis for this admission?: Yes Plan: He had a bronchoscopy to get a biopsy. He is scheduled to start whole brain radiation on Tuesday. He is very weak and so were going to have him evaluated by physical therapy to see if he needs facility placement. I have not seen the official evaluation yet, but I suspect he will probably need placement for short-term. (2) Type II diabetes mellitus Qualifiers: Diabetes mellitus fpc insulin use: without termite inspector use Diabetes mellitus complication status: with unspecified complications Qualified Code(s): E11.8 - Type 2 diabetes mellitus with unspecified complications Is this a current diagnosis for this admission?: Yes Plan: Continue his home medications and a consistent carbohydrate diet - Time Time Spent with patient: 15-24 minutes
[2018-08-29] MEDS: FAMOTIDINE 20 MG TABLET PO SCH ×3 (00:22→21:17)
[2018-08-29] MEDS: HEPARIN SOD (PORCINE) 5,000 UNIT/ML 1 ML SYRINGE SUBCUT SCH ×3 (05:30→21:21)
[2018-08-29] MEDS: NORMAL SALINE 1000 ML 1,000 ML IV PRN (05:48)
[2018-08-29] MEDS: METFORMIN HCL 500 MG TABLET PO SCH ×2 (08:42→16:46)
[2018-08-29] MEDS: ASPIRIN 81 MG TABLET, ENT COATED PO SCH (10:14)
[2018-08-29] MEDS: DEXAMETHASONE 4 MG TABLET PO SCH ×2 (10:14→21:17)
[2018-08-29] MEDS: INSULIN LISPRO 100 UNIT/ML 3 ML VIAL SUBCUT PRN ×3 (12:03→22:45)
--- NOTE | 2018-08-29 16:54 | PDOC PROGRESS REPORT ---
Subjective Progress Note for:: 08/29/18 Subjective:: No adverse events overnight. He had his first radiation treatment last night, around 7:30 PM. He said he was nauseated afterwards and feels a bit worse today than he has last few days. He said he was going to try to eat some lunch this afternoon. He has his next treatment scheduled for tonight at 6 PM. He was trying to get to the bathroom with assistance last night and stumbled and they had to gently ease him to the floor and get some extra assistance to help get him back in bed. Reason For Visit: SUSPECTED METASTATIC LUNG CANCER Physical Exam Vital Signs: Temp Pulse Resp BP Pulse Ox 98.1 F 74 14 105/62 95 08/29/18 12:25 08/29/18 12:25 08/29/18 12:25 08/29/18 12:25 08/29/18 12:25 Intake & Output 08/28/18 08/29/18 08/30/18 06:59 06:59 06:59 Intake Total 3814 3748 Output Total 375 300 Balance 3439 3448 Weight 75 kg 76.8 kg General appearance: PRESENT: no acute distress, cooperative, disheveled, thin Respiratory exam: PRESENT: rhonchi - Left base, unlabored. ABSENT: accessory muscle use, crackles, tachypnea, wheezes Cardiovascular exam: PRESENT: RRR, +S1, +S2 Vascular exam: PRESENT: normal capillary refill GI/Abdominal exam: PRESENT: normal bowel sounds, soft. ABSENT: distended, guarding, rebound, tenderness Extremities exam: ABSENT: clubbing, pedal edema Musculoskeletal exam: PRESENT: normal inspection. ABSENT: deformity Neurological exam: PRESENT: alert, awake, oriented to person, oriented to place, oriented to time Psychiatric exam: PRESENT: appropriate affect, normal mood Skin exam: PRESENT: dry, warm Results Laboratory Results: 08/26/18 04:56 08/26/18 04:56 08/26/18 09:45 Bronchial Washings Gram Stain - Final 08/26/18 09:45 Bronchial Washings Bronchial Washings Culture - Final NORMAL ANGELA 08/23/18 14:27 Blood Blood Culture - Final NO GROWTH IN 5 DAYS 08/23/18 14:04 Blood Blood Culture - Final NO GROWTH IN 5 DAYS 08/23/18 08/23/18 08/23/18 14:04 14:27 14:27 Creatine Kinase Cancelled 21 L Troponin I < 0.012 Impressions: Chest X-Ray 08/23/18 13:16 IMPRESSION: Findings worrisome for postobstructive pneumonia in the left upper lobe related to left hilar mass Abdomen/Pelvis CT 08/23/18 14:48 IMPRESSION: Malignant appearing left hilar mass with postobstructive collapse and consolidation left upper lobe. Bony metastatic lesions in the sternum and L5 vertebral body Malignant appearing Mediastinal and retroperitoneal lymph nodes. Multiple peritoneal implants without ascites. Chest CT 08/23/18 14:48 IMPRESSION: Malignant appearing left hilar mass with postobstructive collapse and consolidation left upper lobe. Bony metastatic lesions in the sternum and L5 vertebral body Malignant appearing Mediastinal and retroperitoneal lymph nodes. Multiple peritoneal implants without ascites. Head MRI 08/24/18 00:00 IMPRESSION: Innumerable enhancing lesions consistent with extensive metastatic disease to the infratentorial and supratentorial brain, as above. Mild associated mass effect. No midline shift. copyright 2011 [employer]- All Rights Reserved Assessment & Plan - Diagnosis (1) Widespread metastatic malignant neoplastic disease Is this a current diagnosis for this admission?: Yes Plan: He had a bronchoscopy to get a biopsy. He will follow-up with Dr. Manzo as an outpatient on the pathology results. He has started 2 weeks of whole brain radiation. He needs to go to a residential facility, but they will not take him while he is on radiation therapy. His daughter said she and the family would be willing to transport him from SNF to radiation therapy and back, but I am not certain this is a good idea. We may have to keep him here and rehab him, and if he can improve physically, we may be able to reconsider disposition at that point. (2) Type II diabetes mellitus Qualifiers: Diabetes mellitus oysterman insulin use: without nursing home use Diabetes mellitus complication status: with unspecified complications Qualified Code(s): E11.8 - Type 2 diabetes mellitus with unspecified complications Is this a current diagnosis for this admission?: Yes Plan: Continue his home medications and a consistent carbohydrate diet - Time Time Spent with patient: 15-24 minutes
[2018-08-29] MEDS ORDERED: FLUCONAZOLE 100 MG TABLET PO ONE (19:30)
[2018-08-29] MEDS ORDERED: FLUCONAZOLE 100 MG TABLET ONE (21:05)
[2018-08-30] MEDS: NORMAL SALINE 1000 ML 1,000 ML IV PRN ×2 (02:40→13:08)
[2018-08-30] MEDS: HEPARIN SOD (PORCINE) 5,000 UNIT/ML 1 ML SYRINGE SUBCUT SCH ×3 (05:24→22:26)
[2018-08-30] MEDS: INSULIN LISPRO 100 UNIT/ML 3 ML VIAL SUBCUT PRN ×4 (07:49→22:27)
[2018-08-30] MEDS: DEXAMETHASONE 4 MG TABLET PO SCH ×2 (09:00→22:26)
[2018-08-30] MEDS: METFORMIN HCL 500 MG TABLET PO SCH (09:00)
[2018-08-30] MEDS: FAMOTIDINE 20 MG TABLET PO SCH ×2 (09:00→22:23)
[2018-08-30] MEDS: ASPIRIN 81 MG TABLET, ENT COATED PO SCH (09:03)
[2018-08-30] MEDS: FLUCONAZOLE 100 MG TABLET PO SCH (10:20)
--- NOTE | 2018-08-30 13:53 | PDOC PROGRESS REPORT ---
Subjective Progress Note for:: 08/30/18 Subjective:: 09/17/2018. No acute events overnight. He is going for radiation therapy around 2:30 PM today. He was on on Zofran and and is still nauseated we are going to put him on Phenergan 25 mg IV every 6 as needed. Patient is comfortably in the bed denies any complaints. Reason For Visit: SUSPECTED METASTATIC LUNG CANCER Physical Exam Vital Signs: Temp Pulse Resp BP Pulse Ox 98.1 F 59 L 15 120/62 94 08/30/18 11:50 08/30/18 11:50 08/30/18 11:50 08/30/18 11:50 08/30/18 11:50 Intake & Output 08/29/18 08/30/18 08/31/18 06:59 06:59 06:59 Intake Total 3748 1879 1000 Output Total 300 Balance 3448 1879 1000 Weight 76.8 kg 76.2 kg General appearance: PRESENT: no acute distress Head exam: PRESENT: atraumatic Eye exam: PRESENT: PERRLA Mouth exam: PRESENT: moist Neck exam: ABSENT: carotid bruit, JVD, lymphadenopathy, thyromegaly Respiratory exam: PRESENT: clear to auscultation clare. ABSENT: rales, rhonchi, wheezes Cardiovascular exam: PRESENT: RRR. ABSENT: diastolic murmur, rubs, systolic murmur GI/Abdominal exam: PRESENT: normal bowel sounds, soft. ABSENT: distended, guarding, mass, organolmegaly, rebound, tenderness Extremities exam: PRESENT: full ROM. ABSENT: calf tenderness, clubbing, pedal edema Neurological exam: PRESENT: alert, awake, oriented to person, oriented to place, oriented to time, oriented to situation, CN II-XII grossly intact. ABSENT: motor sensory deficit Psychiatric exam: PRESENT: appropriate affect, normal mood. ABSENT: homicidal ideation, suicidal ideation Results Laboratory Results: 08/26/18 04:56 08/26/18 04:56 08/26/18 09:45 Bronchial Washings Fungal Smear - Final 08/26/18 09:45 Bronchial Washings Fungal Smear - Final 08/26/18 09:45 Bronchial Washings AFB Smear Concentration - Final 08/26/18 09:45 Bronchial Washings Acid Fast Bacilli Smear - Final 08/23/18 08/23/18 08/23/18 14:04 14:27 14:27 Creatine Kinase Cancelled 21 L Troponin I < 0.012 Impressions: Chest X-Ray 08/23/18 13:16 IMPRESSION: Findings worrisome for postobstructive pneumonia in the left upper lobe related to left hilar mass Abdomen/Pelvis CT 08/23/18 14:48 IMPRESSION: Malignant appearing left hilar mass with postobstructive collapse and consolidation left upper lobe. Bony metastatic lesions in the sternum and L5 vertebral body Malignant appearing Mediastinal and retroperitoneal lymph nodes. Multiple peritoneal implants without ascites. Chest CT 08/23/18 14:48 IMPRESSION: Malignant appearing left hilar mass with postobstructive collapse and consolidation left upper lobe. Bony metastatic lesions in the sternum and L5 vertebral body Malignant appearing Mediastinal and retroperitoneal lymph nodes. Multiple peritoneal implants without ascites. Head MRI 08/24/18 00:00 IMPRESSION: Innumerable enhancing lesions consistent with extensive metastatic disease to the infratentorial and supratentorial brain, as above. Mild associated mass effect. No midline shift. copyright 2010 [employer]- All Rights Reserved Assessment & Plan - Diagnosis (1) Widespread metastatic malignant neoplastic disease Is this a current diagnosis for this admission?: Yes Plan: 08/30/2018. She has most likely lung cancer with metastasis including to the brain. Getting radiation therapy. He had a bronched on waiting for the biopsy report. For radiation therapy around 2:30 PM today. Looks like is going to complete his 2 weeks of radiation therapy while in the hospital. Started him on Phenergan because of the perrsistent nausea. (2) Lung cancer, hilus Qualifiers: Laterality: left Qualified Code(s): C34.02 - Malignant neoplasm of left main bronchus Is this a current diagnosis for this admission?: Yes Plan: 08/30/2017-CT scan shows left hilar mass with metastasis to the rehab center the brain. Radiation therapy. (3) Type II diabetes mellitus Qualifiers: Diabetes mellitus ferry terminal agent insulin use: without half-way use Diabetes mellitus complication status: with unspecified complications Qualified C ode(s): E11.8 - Type 2 diabetes mellitus with unspecified complications Is this a current diagnosis for this admission?: Yes Plan: 09/2017-he has history of diabetes mellitus. Patient is on metformin 5 mg p.o. twice daily at home I am going to hold metformin and I am going to place him on Lantus 10 units twice daily. He will be also on insulin sliding scale before meals and at bedtime. - Time Time Spent with patient: 15-24 minutes Medications reviewed and adjusted accordingly: Yes
[2018-08-30] MEDS ORDERED: INSULIN GLARGINE,HUM.REC.ANLOG 1,000 UNIT/10 ML UNIT SUBCUT SCH (18:00)
[2018-08-30] MEDS: INSULIN GLARGINE,HUM.REC.ANLOG 300 UNIT/3 ML INSULN.PEN SUBCUT SCH (22:23)
--- NOTE | 2018-08-31 00:02 | PROGRESS NOTE E ---
Progress Note NAME: ELIAS GRIFFIN : 1945 AGE: 73Y DATE: 08/30/2018 ROOM: 406 SUBJECTIVE: The patient is a 73-year-old male who came in with left upper lobe mass and left upper postobstructive atelectasis with left hilar lymphadenopathy and mediastinal lymphadenopathy and a renal mass and intracranial metastasis. The patient had cranial irradiation treatment last night and appeared to be doing well. He denies any vomiting, diarrhea, nausea. Denies any worsening headache or blurry vision. The patient denies any hemoptysis or increasing cough or purulent sputum production. No chest pain. 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 OBJECTIVE: GENERAL: The patient is awake, alert, coherent, oriented x3, afebrile. Not in apparent severe distress. VITAL SIGNS: Temperature of 98 degrees Fahrenheit with a T-max of 98.7, pulse rate of 64, blood pressure is 110/61, respiratory rate of 16, oxygen saturation 98% on room air. EYES: No jaundice or pallor. EARS, NOSE, AND THROAT: No ear drainage. No nasal discharge. CHEST AND LUNGS: No wheezing, no rhonchi, no coarse crackles. CARDIOVASCULAR: S1, S2 distinct. Normal rate and regular rhythm. ABDOMEN: Flabby, positive bowel sounds, soft, nondistended, nontender. EXTREMITIES: No joint swelling, no cellulitis. LABORATORY DATA: Chemistry done today; glucose has been on the high side 224 mcg. Endobronchial biopsy done 08/26/2018 showed features consistent with small cell carcinoma. ASSESSMENT: 1. SMALL CELL CARCINOMA LEFT UPPER LOBE WITH POSTOPERATIVE ATELECTASIS AND HILAR MEDIASTINAL ADENOPATHY AND INTRACRANIAL METASTASIS. 2. OROPHARYNGEAL CANDIDIASIS AND TRACHEAL CANDIDIASIS. PLAN: 1. Start the patient on fluconazole 100 mg tablet p.o. daily last night. The patient appeared to tolerate the medication. will continue fluconazole for 1 week. 2. Recommend pulmonary clinic follow up in 3 to 4 weeks following hospital discharge. 3. We will sign off tonight. DICTATING PHYSICIAN: JOSÉ MONTANA MD,YOSI,MPH [id number] PHY#: [id number] ID: [id number] JOB#: [id number] ACCT: [id number] cc: > MTDD
[2018-08-31] MEDS: HEPARIN SOD (PORCINE) 5,000 UNIT/ML 1 ML SYRINGE SUBCUT SCH ×3 (05:48→22:13)
--- NOTE | 2018-08-31 07:52 | PDOC PROGRESS REPORT ---
Subjective Progress Note for:: 08/31/18 Subjective:: Patient states that he is feeling well today. He started radiation therapy and has had some nausea. He has not been out of bed much and agrees that he is not safe to be home without assistance. ROS: No pain. No confusion. Good appetite. Reason For Visit: SUSPECTED METASTATIC LUNG CANCER Physical Exam Vital Signs: Temp Pulse Resp BP Pulse Ox 98.2 F 65 21 H 117/54 L 93 08/31/18 00:00 08/31/18 00:00 08/31/18 00:00 08/31/18 00:00 08/31/18 00:00 Intake & Output 08/30/18 08/31/18 09/01/18 06:59 06:59 06:59 Intake Total 1879 2710 Output Total 500 Balance 1879 2210 Weight 76.2 kg 76.5 kg General appearance: PRESENT: no acute distress Head exam: PRESENT: normocephalic Respiratory exam: PRESENT: unlabored Neurological exam: PRESENT: alert, awake, oriented to person, oriented to place Psychiatric exam: PRESENT: appropriate affect Skin exam: PRESENT: normal color Results Laboratory Results: 08/26/18 04:56 08/26/18 04:56 08/26/18 09:45 Bronchial Washings Fungal Smear - Final 08/26/18 09:45 Bronchial Washings Fungal Smear - Final 08/23/18 08/23/18 08/23/18 14:04 14:27 14:27 Creatine Kinase Cancelled 21 L Troponin I < 0.012 Impressions: Chest X-Ray 08/23/18 13:16 IMPRESSION: Findings worrisome for postobstructive pneumonia in the left upper lobe related to left hilar mass Abdomen/Pelvis CT 08/23/18 14:48 IMPRESSION: Malignant appearing left hilar mass with postobstructive collapse and consolidation left upper lobe. Bony metastatic lesions in the sternum and L5 vertebral body Malignant appearing Mediastinal and retroperitoneal lymph nodes. Multiple peritoneal implants without ascites. Chest CT 08/23/18 14:48 IMPRESSION: Malignant appearing left hilar mass with postobstructive collapse and consolidation left upper lobe. Bony metastatic lesions in the sternum and L5 vertebral body Malignant appearing Mediastinal and retroperitoneal lymph nodes. Multiple peritoneal implants without ascites. Head MRI 08/24/18 00:00 IMPRESSION: Innumerable enhancing lesions consistent with extensive metastatic disease to the infratentorial and supratentorial brain, as above. Mild associated mass effect. No midline shift. copyright 2011 [employer]- All Rights Reserved Assessment & Plan - Diagnosis (1) Lung mass Is this a current diagnosis for this admission?: Yes Plan: I reviewed the pathology report with the patient. Biopsy showed Small Cell Lung Cancer. I have explained that this is usually very aggressive and spreads quickly. However, it is also very sensitive to therapy. We discussed treatment options, including palliative care only. However, patient wishes to pursue aggressive therapy. I would give Carboplatin/etoposide Monthly for 6 cycles. Also, consider radiation to the lung as well as the brain. I will discuss with patient's family as well as radiation therapy. (2) Brain metastases Is this a current diagnosis for this admission?: Yes Plan: Continue brain radiation. This should finish in about 2 weeks. (3) Risk for falls Is this a current diagnosis for this admission?: Yes Plan: He is not currently able to ambulate safely on his own. I will discuss further with family need for aggressive rehab/walking to keep his strength up. I do not believe he is getting adequate therapy here. However, I have been told that rehab will not take him as long as he is receiving radiation therapy daily. Will discuss further with discharge planners. (4) Nausea Is this a current diagnosis for this admission?: Yes Plan: Phenergan and zofran. I will decrease Dex today.
[2018-08-31] MEDS: ASPIRIN 81 MG TABLET, ENT COATED PO SCH (10:17)
[2018-08-31] MEDS: FAMOTIDINE 20 MG TABLET PO SCH ×2 (10:17→22:21)
[2018-08-31] MEDS: NORMAL SALINE 1000 ML 1,000 ML IV PRN ×2 (10:17→23:16)
[2018-08-31] MEDS: INSULIN GLARGINE,HUM.REC.ANLOG 300 UNIT/3 ML INSULN.PEN SUBCUT SCH ×2 (10:17→22:19)
[2018-08-31] MEDS: FLUCONAZOLE 100 MG TABLET PO SCH (10:18)
[2018-08-31] MEDS: DEXAMETHASONE 4 MG TABLET PO SCH ×2 (10:18→22:22)
[2018-08-31] MEDS: INSULIN LISPRO 100 UNIT/ML 3 ML VIAL SUBCUT PRN ×3 (11:45→22:20)
--- NOTE | 2018-08-31 17:17 | PDOC PROGRESS REPORT ---
Subjective Progress Note for:: 08/31/18 Subjective:: This is a very pleasant but unfortunate 73 years old male patient presented with chief complaint of generalized weakness, difficulty walking and decreased appetite. Patient is found to have stage IV small cell lung cancer with distant metastasis to the brain. Patient has been on chemotherapy and radiation. Patient qualifies for acute inpatient rehab. Reason For Visit: SUSPECTED METASTATIC LUNG CANCER Physical Exam Vital Signs: Temp Pulse Resp BP Pulse Ox 97.9 F 54 L 14 127/71 H 94 08/31/18 11:41 08/31/18 11:41 08/31/18 11:41 08/31/18 11:41 08/31/18 11:41 Intake & Output 08/30/18 08/31/18 09/01/18 06:59 06:59 06:59 Intake Total 1879 2710 Output Total 500 Balance 1879 2210 Weight 76.2 kg 76.5 kg General appearance: PRESENT: mild distress, thin Eye exam: PRESENT: conjunctiva pink Mouth exam: PRESENT: dry mucosa Neck exam: ABSENT: carotid bruit, JVD, lymphadenopathy, thyromegaly Respiratory exam: PRESENT: crackles, decreased breath sounds - Over the left lung field Cardiovascular exam: PRESENT: RRR. ABSENT: diastolic murmur, rubs, systolic murmur GI/Abdominal exam: PRESENT: normal bowel sounds, soft. ABSENT: distended, guard ing, mass, organolmegaly, rebound, tenderness Neurological exam: PRESENT: alert, awake, oriented to time, oriented to situation Results Laboratory Results: 08/26/18 04:56 08/26/18 04:56 08/26/18 09:45 Bronchial Washings Fungal Smear - Final 08/26/18 09:45 Bronchial Washings Fungal Smear - Final 08/23/18 08/23/18 08/23/18 14:04 14:27 14:27 Creatine Kinase Cancelled 21 L Troponin I < 0.012 Impressions: Chest X-Ray 08/23/18 13:16 IMPRESSION: Findings worrisome for postobstructive pneumonia in the left upper lobe related to left hilar mass Abdomen/Pelvis CT 08/23/18 14:48 IMPRESSION: Malignant appearing left hilar mass with postobstructive collapse and consolidation left upper lobe. Bony metastatic lesions in the sternum and L5 vertebral body Malignant appearing Mediastinal and retroperitoneal lymph nodes. Multiple peritoneal implants without ascites. Chest CT 08/23/18 14:48 IMPRESSION: Malignant appearing left hilar mass with postobstructive collapse and consolidation left upper lobe. Bony metastatic lesions in the sternum and L5 vertebral body Malignant appearing Mediastinal and retroperitoneal lymph nodes. Multiple peritoneal implants without ascites. Head MRI 08/24/18 00:00 IMPRESSION: Innumerable enhancing lesions consistent with extensive metastatic disease to the infratentorial and supratentorial brain, as above. Mild associated mass effect. No midline shift. copyright 2010 [employer]- All Rights Reserved Assessment & Plan - Diagnosis (1) Small cell lung cancer, left upper lobe Is this a current diagnosis for this admission?: Yes Plan: Stage IV. Patient has been started on chemo and radiation (2) Diffuse brain metastasis Is this a current diagnosis for this admission?: Yes Plan: Primary left lung. Patient is undergoing radiation to the brain (3) Type II diabetes mellitus Qualifiers: Diabetes mellitus half-way insulin use: without termite helper use Diabetes mellitus complication status: with unspecified complications Qualified Code(s): E11.8 - Type 2 diabetes mellitus with unspecified complications Is this a current diagnosis for this admission?: Yes Plan: To new current regimen (4) Hypertension Qualifiers: Hypertension type: essential hypertension Qualified Code(s): I10 - Essential (primary) hypertension Is this a current diagnosis for this admission?: Yes Plan: Continue current regimen
[2018-09-01] MEDS: HEPARIN SOD (PORCINE) 5,000 UNIT/ML 1 ML SYRINGE SUBCUT SCH ×3 (05:46→21:32)
[2018-09-01 07:17] LABS: ABSOLUTE LYMPHOCYTES (AUTO) 0.8 10^3/uL (0.5-4.7); ABSOLUTE MONOCYTES (AUTO) 0.4 10^3/uL (0.1-1.4); ABSOLUTE NEUT (AUTO) 7.9 10^3/uL (1.7-8.2); BASOPHILS % (AUTO) 0.2 % (0-2); EOSINOPHILS % (AUTO) 0.5 % (0-6); HEMATOCRIT 36.6 % (37.9-51.0); HEMOGLOBIN 12.7 g/dL (13.5-17.0); LYMPHOCYTES % (AUTO) 8.6 % (13-45); MEAN CORPUSCULAR HEMOGLOBIN 29.3 pg (27.0-33.4); MEAN CORPUSCULAR HGB CONC 34.7 g/dL (32.0-36.0); MEAN CORPUSCULAR VOLUME 84 fl (80-97); MONOCYTES % (AUTO) 3.9 % (3-13); PLATELET COUNT 162 10^3/uL (150-450); RED BLOOD COUNT 4.33 10^6/uL (4.35-5.55); RED CELL DISTRIBUTION WIDTH 15.5 % (11.5-14.0); SEGMENTED NEUTROPHILS % (AUTO) 86.8 % (42-78); TOTAL CELLS COUNTED % (AUTO) 100 %; WHITE BLOOD COUNT 9.1 10^3/uL (4.0-10.5)
[2018-09-01 07:35] LABS: ALANINE AMINOTRANSFERASE 19 U/L (21-72); ALBUMIN 2.1 g/dL (3.5-5.0); ALKALINE PHOSPHATASE 82 U/L (38-126); ANION GAP 5 (5-19); ASPARTATE AMINO TRANSFERASE 14 U/L (17-59); BILIRUBIN,DIRECT 0.2 mg/dL (0.0-0.4); BILIRUBIN,TOTAL 0.4 mg/dL (0.2-1.3); BLOOD UREA NITROGEN 17 mg/dL (7-20); CALCIUM 8.4 mg/dL (8.4-10.2); CARBON DIOXIDE 24 mmol/L (22-30); CHLORIDE 107 mmol/L (98-107); GLUCOSE 156 mg/dL (75-110); SODIUM 136.1 mmol/L (137-145); TOTAL PROTEIN 4.3 g/dL (6.3-8.2)
[2018-09-01 07:39] LABS: POTASSIUM 3.7 mmol/L (3.6-5.0)
--- NOTE | 2018-09-01 08:10 | PDOC PROGRESS REPORT ---
Subjective Progress Note for:: 09/01/18 Subjective:: Patient states that he is lonely. He was able to have radiation yeterday and also worked with physical therapy such that his muscles are sore today. He states this is good for him. He is eating well. ROS: No pain. No constipation. No dyspnea. Reason For Visit: SUSPECTED METASTATIC LUNG CANCER Physical Exam Vital Signs: Temp Pulse Resp BP Pulse Ox 98.2 F 51 L 17 134/69 H 97 08/31/18 23:36 08/31/18 23:36 08/31/18 23:36 08/31/18 23:36 08/31/18 23:36 Intake & Output 08/31/18 09/01/18 09/02/18 06:59 06:59 06:59 Intake Total 2710 1950 Output Total 500 700 Balance 2210 1250 Weight 76.5 kg 68.9 kg General appearance: PRESENT: well-developed, well-nourished Head exam: PRESENT: normocephalic Respiratory exam: PRESENT: unlabored Neurological exam: PRESENT: alert, awake Psychiatric exam: PRESENT: appropriate affect Skin exam: PRESENT: normal color Results Laboratory Results: 09/01/18 06:55 09/01/18 06:55 09/01/18 09/01/18 06:55 06:55 WBC 9.1 RBC 4.33 L Hgb 12.7 L Hct 36.6 L MCV 84 MCH 29.3 MCHC 34.7 RDW 15.5 H Plt Count 162 Seg Neutrophils % 86.8 H Lymphocytes % 8.6 L Monocytes % 3.9 Eosinophils % 0.5 Basophils % 0.2 Absolute Neutrophils 7.9 Absolute Lymphocytes 0.8 Absolute Monocytes 0.4 Absolute Eosinophils 0.0 Absolute Basophils 0.0 Sodium 136.1 L Potassium 3.7 Chloride 107 Carbon Dioxide 24 Anion Gap 5 BUN 17 Creatinine 0.52 Est GFR ( Amer) > 60 Est GFR (Non-Af Amer) > 60 Glucose 156 H Calcium 8.4 Total Bilirubin 0.4 AST 14 L ALT 19 L Alkaline Phosphatase 82 Total Protein 4.3 L Albumin 2.1 L 08/23/18 08/23/18 08/23/18 14:04 14:27 14:27 Creatine Kinase Cancelled 21 L Troponin I < 0.012 Impressions: Chest X-Ray 08/23/18 13:16 IMPRESSION: Findings worrisome for postobstructive pneumonia in the left upper lobe related to left hilar mass Abdomen/Pelvis CT 08/23/18 14:48 IMPRESSION: Malignant appearing left hilar mass with postobstructive collapse a nd consolidation left upper lobe. Bony metastatic lesions in the sternum and L5 vertebral body Malignant appearing Mediastinal and retroperitoneal lymph nodes. Multiple peritoneal implants without ascites. Chest CT 08/23/18 14:48 IMPRESSION: Malignant appearing left hilar mass with postobstructive collapse and consolidation left upper lobe. Bony metastatic lesions in the sternum and L5 vertebral body Malignant appearing Mediastinal and retroperitoneal lymph nodes. Multiple peritoneal implants without ascites. Head MRI 08/24/18 00:00 IMPRESSION: Innumerable enhancing lesions consistent with extensive metastatic disease to the infratentorial and supratentorial brain, as above. Mild associated mass effect. No midline shift. copyright 2011 [employer]- All Rights Reserved Assessment & Plan - Diagnosis (1) Lung mass Is this a current diagnosis for this admission?: Yes (2) Brain metastases Is this a current diagnosis for this admission?: Yes Plan: Currently receiving Whole brain radiation. He is on Dexamethasone 4 mg BID. This will be weaned once radiation has completed. (3) Risk for falls Is this a current diagnosis for this admission?: Yes Plan: He is working with physical therapy. I believe he would do much better in an inpatient rehab facility to increase his strength and balance. (4) Nausea Is this a current diagnosis for this admission?: Yes (5) Small cell lung cancer, left upper lobe Is this a current diagnosis for this admission?: Yes Plan: Patient has not yet started chemotherapy. Plan to start chemo as soon as radiation to the brain has been completed. I discussed at length with patient and his daughter yesterday. All questions were answered. - Plan Summary Plan Summary: Dr. Moe will be covering over the weekend. Please call if needed.
[2018-09-01] MEDS: INSULIN LISPRO 100 UNIT/ML 3 ML VIAL SUBCUT PRN ×4 (08:58→21:48)
[2018-09-01] MEDS: NORMAL SALINE 1000 ML 1,000 ML IV PRN ×2 (08:59→21:51)
[2018-09-01] MEDS: ASPIRIN 81 MG TABLET, ENT COATED PO SCH (10:04)
[2018-09-01] MEDS: DEXAMETHASONE 4 MG TABLET PO SCH ×2 (10:04→21:47)
[2018-09-01] MEDS: INSULIN GLARGINE,HUM.REC.ANLOG 300 UNIT/3 ML INSULN.PEN SUBCUT SCH ×2 (10:04→21:48)
[2018-09-01] MEDS: FLUCONAZOLE 100 MG TABLET PO SCH (10:04)
[2018-09-01] MEDS: FAMOTIDINE 20 MG TABLET PO SCH ×2 (10:04→21:47)
--- NOTE | 2018-09-01 15:43 | PDOC PROGRESS REPORT ---
Subjective Progress Note for:: 09/01/18 Subjective:: I seen patient resting in bed comfortably. He is awake alert and oriented. He is able to participate with physical therapy. He eats well and tolerates well. As per Dr. Giles currently patient is getting radiation to his brain. As soon as he finished his sessions of radiation therapy to his brain patient will be started on chemotherapy. Due to debility and deconditioning the patient qualifies for acute inpatient rehab. Reason For Visit: SUSPECTED METASTATIC LUNG CANCER Physical Exam Vital Signs: Temp Pulse Resp BP Pulse Ox 97.5 F 54 L 18 134/75 H 100 09/01/18 11:38 09/01/18 11:38 09/01/18 11:38 09/01/18 11:38 09/01/18 11:38 Intake & Output 08/31/18 09/01/18 09/02/18 06:59 06:59 06:59 Intake Total 2710 1950 972 Output Total 500 700 Balance 2210 1250 972 Weight 76.5 kg 68.9 kg General appearance: PRESENT: no acute distress Head exam: PRESENT: atraumatic Mouth exam: PRESENT: moist Neck exam: ABSENT: carotid bruit, JVD, lymphadenopathy, thyromegaly Respiratory exam: PRESENT: clear to auscultation clare. ABSENT: rales, rhonchi, wheezes Cardiovascular exam: PRESENT: RRR. ABSENT: diastolic murmur, rubs, systolic murmur GI/Abdominal exam: PRESENT: normal bowel sounds, soft. ABSENT: distended, guarding, mass, organolmegaly, rebound, tenderness Neurological exam: PRESENT: alert, awake, oriented to time, oriented to situation Results Laboratory Results: 09/01/18 06:55 09/01/18 06:55 09/01/18 09/01/18 06:55 06:55 WBC 9.1 RBC 4.33 L Hgb 12.7 L Hct 36.6 L MCV 84 MCH 29.3 MCHC 34.7 RDW 15.5 H Plt Count 162 Seg Neutrophils % 86.8 H Lymphocytes % 8.6 L Monocytes % 3.9 Eosinophils % 0.5 Basophils % 0.2 Absolute Neutrophils 7.9 Absolute Lymphocytes 0.8 Absolute Monocytes 0.4 Absolute Eosinophils 0.0 Absolute Basophils 0.0 Sodium 136.1 L Potassium 3.7 Chloride 107 Carbon Dioxide 24 Anion Gap 5 BUN 17 Creatinine 0.52 Est GFR ( Amer) > 60 Est GFR (Non-Af Amer) > 60 Glucose 156 H Calcium 8.4 Total Bilirubin 0.4 AST 14 L ALT 19 L Alkaline Phosphatase 82 Total Protein 4.3 L Albumin 2.1 L 08/23/18 08/23/18 08/23/18 14:04 14:27 14:27 Creatine Kinase Cancelled 21 L Troponin I < 0.012 Impressions: Chest X-Ray 08/23/18 13:16 IMPRESSION: Findings worrisome for postobstructive pneumonia in the left upper lobe related to left hilar mass Abdomen/Pelvis CT 08/23/18 14:48 IMPRESSION: Malignant appearing left hilar mass with postobstructive collapse and consolidation left upper lobe. Bony metastatic lesions in the sternum and L5 vertebral body Malignant appearing Mediastinal and retroperitoneal lymph nodes. Multiple peritoneal implants without ascites. Chest CT 08/23/18 14:48 IMPRESSION: Malignant appearing left hilar mass with postobstructive collapse and consolidation left upper lobe. Bony metastatic lesions in the sternum and L5 vertebral body Malignant appearing Mediastinal and retroperitoneal lymph nodes. Multiple peritoneal implants without ascites. Head MRI 08/24/18 00:00 IMPRESSION: Innumerable enhancing lesions consistent with extensive metastatic disease to the infratentorial and supratentorial brain, as above. Mild associated mass effect. No midline shift. copyright 2011 [employer] [facility] [employer]- All Rights Reserved Assessment & Plan - Diagnosis (1) Small cell lung cancer, left upper lobe Is this a current diagnosis for this admission?: Yes Plan: Stage IV. Patient has been on radiation to his brain. He will be started on chemo as soon as he finished the radiation session to his brain. (2) Diffuse brain metastasis Is this a current diagnosis for this admission?: Yes Plan: Primary left lung. Patient is undergoing radiation to the brain (3) Type II diabetes mellitus Qualifiers: Diabetes mellitus watermaster insulin use: without watermaster use Diabetes mellitus complication status: with unspecified complications Qualified Code(s): E11.8 - Type 2 diabetes mellitus with unspecified complications Is this a current diagnosis for this admission?: Yes Plan: To new current regimen (4) Hypertension Qualifiers: Hypertension type: essential hypertension Qualified Code(s): I10 - Essential (primary) hypertension Is this a current diagnosis for this admission?: Yes Plan: Continue current regimen
[2018-09-02] MEDS: HEPARIN SOD (PORCINE) 5,000 UNIT/ML 1 ML SYRINGE SUBCUT SCH ×3 (05:37→22:34)
[2018-09-02] MEDS: NORMAL SALINE 1000 ML 1,000 ML IV PRN ×2 (08:06→17:15)
[2018-09-02] MEDS: INSULIN LISPRO 100 UNIT/ML 3 ML VIAL SUBCUT PRN ×4 (08:06→22:33)
[2018-09-02] MEDS: DEXAMETHASONE 4 MG TABLET PO SCH ×2 (10:53→22:30)
[2018-09-02] MEDS: ASPIRIN 81 MG TABLET, ENT COATED PO SCH (10:53)
[2018-09-02] MEDS: FLUCONAZOLE 100 MG TABLET PO SCH (10:54)
[2018-09-02] MEDS: FAMOTIDINE 20 MG TABLET PO SCH ×2 (10:54→22:29)
[2018-09-02] MEDS: INSULIN GLARGINE,HUM.REC.ANLOG 300 UNIT/3 ML INSULN.PEN SUBCUT SCH ×2 (10:54→22:31)
--- NOTE | 2018-09-02 12:45 | PDOC PROGRESS REPORT ---
Subjective Progress Note for:: 09/02/18 Subjective:: Seen patient sitting up in bed he is awake alert and oriented. He is well sent tolerates well. No nausea, vomiting or fever. Patient is undergoing brain radiation. Reason For Visit: SUSPECTED METASTATIC LUNG CANCER Physical Exam Vital Signs: Temp Pulse Resp BP Pulse Ox 98.1 F 54 L 12 139/70 H 92 09/02/18 08:04 09/02/18 08:04 09/02/18 08:04 09/02/18 08:04 09/02/18 08:04 Intake & Output 09/01/18 09/02/18 09/03/18 06:59 06:59 06:59 Intake Total 1950 3330 1000 Output Total 700 475 Balance 1250 2855 1000 Weight 68.9 kg 68.9 kg General appearance: PRESENT: no acute distress Neck exam: ABSENT: carotid bruit, JVD, lymphadenopathy, thyromegaly Respiratory exam: PRESENT: crackles Cardiovascular exam: PRESENT: RRR. ABSENT: diastolic murmur, rubs, systolic murmur GI/Abdominal exam: PRESENT: normal bowel sounds, soft. ABSENT: distended, guarding, mass, organolmegaly, rebound, tenderness Neurological exam: PRESENT: alert, awake, oriented to time, oriented to situation Results Laboratory Results: 09/01/18 06:55 09/01/18 06:55 08/23/18 08/23/18 08/23/18 14:04 14:27 14:27 Creatine Kinase Cancelled 21 L Troponin I < 0.012 Impressions: Chest X-Ray 08/23/18 13:16 IMPRESSION: Findings worrisome for postobstructive pneumonia in the left upper lobe related to left hilar mass Abdomen/Pelvis CT 08/23/18 14:48 IMPRESSION: Malignant appearing left hilar mass with postobstructive collapse and consolidation left upper lobe. Bony metastatic lesions in the sternum and L5 vertebral body Malignant appearing Mediastinal and retroperitoneal lymph nodes. Multiple charlene toneal implants without ascites. Chest CT 08/23/18 14:48 IMPRESSION: Malignant appearing left hilar mass with postobstructive collapse and consolidation left upper lobe. Bony metastatic lesions in the sternum and L5 vertebral body Malignant appearing Mediastinal and retroperitoneal lymph nodes. Multiple peritoneal implants without ascites. Head MRI 08/24/18 00:00 IMPRESSION: Innumerable enhancing lesions consistent with extensive metastatic disease to the infratentorial and supratentorial brain, as above. Mild associated mass effect. No midline shift. copyright 2011 [employer]- All Rights Reserved Assessment & Plan - Diagnosis (1) Small cell lung cancer, left upper lobe Is this a current diagnosis for this admission?: Yes Plan: Stage IV. Patient has been on radiation to his brain. He will be started on chemo as soon as he finished the radiation session to his brain. (2) Diffuse brain metastasis Is this a current diagnosis for this admission?: Yes Plan: Primary left lung. Patient is undergoing radiation to the brain (3) Type II diabetes mellitus Qualifiers: Diabetes mellitus chcf insulin use: without manager intermediate use Diabetes mellitus complication status: with unspecified complications Qualified Code(s): E11.8 - Type 2 diabetes mellitus with unspecified complications Is this a current diagnosis for this admission?: Yes Plan: To new current regimen (4) Hypertension Qualifiers: Hypertension type: essential hypertension Qualified Code(s): I10 - Essential (primary) hypertension Is this a current diagnosis for this admission?: Yes Plan: Continue current regimen
[2018-09-02] MEDS: FUROSEMIDE 20 MG TABLET PO SCH (17:14)
[2018-09-02] MEDS: ATORVASTATIN CALCIUM 80 MG TABLET PO SCH (22:29)
[2018-09-02] MEDS: METOPROLOL TARTRATE 25 MG TABLET PO SCH (22:30)
[2018-09-03] MEDS: NORMAL SALINE 1000 ML 1,000 ML IV PRN ×2 (03:50→16:32)
[2018-09-03] MEDS: HEPARIN SOD (PORCINE) 5,000 UNIT/ML 1 ML SYRINGE SUBCUT SCH ×3 (05:24→21:59)
[2018-09-03] MEDS: TAMSULOSIN HCL 0.4 MG CAP.SR.24H PO SCH (09:30)
[2018-09-03] MEDS: LISINOPRIL 5 MG TABLET PO SCH (09:30)
[2018-09-03] MEDS: DEXAMETHASONE 4 MG TABLET PO SCH ×2 (09:31→21:59)
[2018-09-03] MEDS: METOPROLOL TARTRATE 25 MG TABLET PO SCH ×2 (09:32→21:52)
[2018-09-03] MEDS: FLUCONAZOLE 100 MG TABLET PO SCH (09:32)
[2018-09-03] MEDS: FAMOTIDINE 20 MG TABLET PO SCH ×2 (09:32→21:52)
[2018-09-03] MEDS: ASPIRIN 81 MG TABLET, ENT COATED PO SCH (09:32)
[2018-09-03] MEDS: INSULIN GLARGINE,HUM.REC.ANLOG 300 UNIT/3 ML INSULN.PEN SUBCUT SCH ×2 (09:33→21:53)
[2018-09-03] MEDS: INSULIN LISPRO 100 UNIT/ML 3 ML VIAL SUBCUT PRN ×4 (09:33→21:56)
--- NOTE | 2018-09-03 12:17 | PDOC PROGRESS REPORT ---
Subjective Subjective:: Patient seen propped up in bed. He is awake alert oriented. Is not in pain or distress. Patient has debility and deconditioning and is going to be placed in acute short-term rehab. As soon as he finished his brain radiation. Reason For Visit: SUSPECTED METASTATIC LUNG CANCER Physical Exam Vital Signs: Temp Pulse Resp BP Pulse Ox 97.8 F 60 16 143/83 H 99 09/02/18 23:31 09/02/18 23:31 09/02/18 23:31 09/02/18 23:31 09/02/18 23:31 Intake & Output 09/02/18 09/03/18 09/04/18 06:59 06:59 06:59 Intake Total 3330 3869 Output Total 475 Balance 2855 3869 Weight 68.9 kg 68.9 kg General appearance: PRESENT: no acute distress Head exam: PRESENT: atraumatic Eye exam: PRESENT: conjunctiva pink Mouth exam: PRESENT: moist Neck exam: ABSENT: carotid bruit, JVD, lymphadenopathy, thyromegaly Respiratory exam: PRESENT: crackles. ABSENT: rales, rhonchi, wheezes Cardiovascular exam: PRESENT: RRR. ABSENT: diastolic murmur, rubs, systolic murmur GI/Abdominal exam: PRESENT: normal bowel sounds, soft. ABSENT: distended, guarding, mass, organolmegaly, rebound, tenderness Neurological exam: PRESENT: alert, awake, oriented to time, oriented to situation Results Laboratory Results: 09/01/18 06:55 09/01/18 06:55 08/26/18 09:45 Bronchial Washings Fungal Smear - Final 08/26/18 09:45 Bronchial Washings Fungal Smear - Final 08/23/18 08/23/18 08/23/18 14:04 14:27 14:27 Creatine Kinase Cancelled 21 L Troponin I < 0.012 Impressions: Chest X-Ray 08/23/18 13:16 IMPRESSION: Findings worrisome for postobstructive pneumonia in the left upper lobe related to left hilar mass Abdomen/Pelvis CT 08/23/18 14:48 IMPRESSION: Malignant appearing left hilar mass with postobstructive collapse and consolidation left upper lobe. Bony metastatic lesions in the sternum and L5 vertebral body Malignant appearing Mediastinal and retroperitoneal lymph nodes. Multiple peritoneal implants without ascites. Chest CT 08/23/18 14:48 IMPRESSION: Malignant appearing left hilar mass with postobstructive collapse and consolidation left upper lobe. Bony metastatic lesions in the sternum and L5 vertebral body Malignant appearing Mediastinal and retroperitoneal lymph nodes. Multiple peritoneal implants without ascites. Head MRI 08/24/18 00:00 IMPRESSION: Innumerable enhancing lesions consistent with extensive metastatic disease to the infratentorial and supratentorial brain, as above. Mild associated mass effect. No midline shift. copyright 2010 [employer]- All Rights Reserved Assessment & Plan - Diagnosis (1) Small cell lung cancer, left upper lobe Is this a current diagnosis for this admission?: Yes Plan: Stage IV. Patient has been on radiation to his brain. He will be started on chemo as soon as he finished the radiation session to his brain. (2) Diffuse brain metastasis Is this a current diagnosis for this admission?: Yes Plan: Primary left lung. Patient is undergoing radiation to the brain (3) Type II diabetes mellitus Qualifiers: Diabetes mellitus fci insulin use: without fci use Diabetes mellitus complication status: with unspecified complications Qualified Code(s): E11.8 - Type 2 diabetes mellitus with unspecified complications Is this a current diagnosis for this admission?: Yes Plan: To new current regimen (4) Hypertension Qualifiers: Hypertension type: essential hypertension Qualified Code(s): I10 - Essential (primary) hypertension Is this a current diagnosis for this admission?: Yes Plan: Continue current regimen (5) Hyperlipidemia Is this a current diagnosis for this admission?: Yes Plan: Continue home med
[2018-09-03] MEDS: METFORMIN HCL 500 MG TABLET PO SCH (16:36)
[2018-09-03] MEDS: FUROSEMIDE 20 MG TABLET PO SCH (17:11)
[2018-09-03] MEDS: ATORVASTATIN CALCIUM 80 MG TABLET PO SCH (21:52)
[2018-09-04] MEDS: NORMAL SALINE 1000 ML 1,000 ML IV PRN ×2 (04:11→16:35)
[2018-09-04] MEDS: HEPARIN SOD (PORCINE) 5,000 UNIT/ML 1 ML SYRINGE SUBCUT SCH ×3 (05:47→21:31)
[2018-09-04] MEDS: LISINOPRIL 5 MG TABLET PO SCH (08:19)
[2018-09-04] MEDS: TAMSULOSIN HCL 0.4 MG CAP.SR.24H PO SCH (08:20)
[2018-09-04] MEDS: INSULIN LISPRO 100 UNIT/ML 3 ML VIAL SUBCUT PRN ×3 (08:20→21:40)
[2018-09-04] MEDS: METFORMIN HCL 500 MG TABLET PO SCH ×2 (08:20→16:34)
--- NOTE | 2018-09-04 08:25 | PDOC PROGRESS REPORT ---
Subjective Progress Note for:: 09/04/18 Subjective:: Patient denies complaints today. He is eating well and was able to get up and walk some over the weekend. ROS: Denies dyspnea, pain, constipation, nausea. Reason For Visit: SUSPECTED METASTATIC LUNG CANCER Physical Exam Vital Signs: Temp Pulse Resp BP Pulse Ox 98.1 F 60 19 112/71 97 09/04/18 00:00 09/04/18 00:00 09/04/18 00:00 09/04/18 00:00 09/04/18 00:00 Intake & Output 09/03/18 09/04/18 09/05/18 06:59 06:59 06:59 Intake Total 3869 2864 Balance 3869 2864 Weight 68.9 kg 70.5 kg General appearance: PRESENT: no acute distress, well-developed, well-nourished Head exam: PRESENT: normocephalic Respiratory exam: PRESENT: clear to auscultation clare, unlabored Cardiovascular exam: PRESENT: RRR GI/Abdominal exam: PRESENT: soft. ABSENT: tenderness Extremities exam: ABSENT: pedal edema Neurological exam: PRESENT: alert, awake Psychiatric exam: PRESENT: appropriate affect Skin exam: PRESENT: normal color Results Laboratory Results: 09/01/18 06:55 09/01/18 06:55 08/23/18 08/23/18 08/23/18 14:04 14:27 14:27 Creatine Kinase Cancelled 21 L Troponin I < 0.012 Impressions: Chest X-Ray 08/23/18 13:16 IMPRESSION: Findings worrisome for postobstructive pneumonia in the left upper lobe related to left hilar mass Abdomen/Pelvis CT 08/23/18 14:48 IMPRESSION: Malignant appearing left hilar mass with postobstructive collapse and consolidation left upper lobe. Bony metastatic lesions in the sternum and L5 vertebral body Malignant appearing Mediastinal and retroperitoneal lymph nodes. Multiple peritoneal implants without ascites. Chest CT 08/23/18 14:48 IMPRESSION: Malignant appearing left hilar mass with postobstructive collapse and consolidation left upper lobe. Bony metastatic lesions in the sternum and L5 vertebral body Malignant appearing Mediastinal and retroperitoneal lymph nodes. Multiple peritoneal implants without ascites. Head MRI 08/24/18 00:00 IMPRESSION: Innumerable enhancing lesions consistent with extensive metastatic disease to the infratentorial and supratentorial brain, as above. Mild associated mass effect. No midline shift. copyright 2010 [employer]- All Rights Reserved Assessment & Plan - Diagnosis (1) Lung mass Is this a current diagnosis for this admission?: Yes (2) Brain metastases Is this a current diagnosis for this admission?: Yes (3) Risk for falls Is this a current diagnosis for this admission?: Yes Plan: Plan transfer to SNF for rehab after chemo and radiation have completed. (4) Nausea Is this a current diagnosis for this admission?: Yes (5) Small cell lung cancer, left upper lobe Is this a current diagnosis for this admission?: Yes Plan: He will receive his last dose of brain radiation on 09/08/2018. Will plan chemo from 09/09/2018 to 09/11/2018. - Plan Summary Plan Summary: Continue exercise and strength training.
[2018-09-04] MEDS: FAMOTIDINE 20 MG TABLET PO SCH ×2 (09:50→21:36)
[2018-09-04] MEDS: INSULIN GLARGINE,HUM.REC.ANLOG 300 UNIT/3 ML INSULN.PEN SUBCUT SCH ×2 (09:50→21:39)
[2018-09-04] MEDS: METOPROLOL TARTRATE 25 MG TABLET PO SCH ×2 (09:50→21:36)
[2018-09-04] MEDS: DEXAMETHASONE 4 MG TABLET PO SCH ×2 (09:50→21:36)
[2018-09-04] MEDS: ASPIRIN 81 MG TABLET, ENT COATED PO SCH (09:50)
--- NOTE | 2018-09-04 12:40 | PDOC PROGRESS REPORT ---
Subjective Subjective:: This is a very pleasant but unfortunate 73 years old male patient presented with chief complaint of generalized weakness, difficulty walking and decreased appetite. Patient is found to have stage IV small cell lung cancer with distant metastasis to the brain. Currently radiation therapy to his brain. His last dose of brain radiation will be on September 08, 2018 and will be started on chemo on 09 September. After he finishes radiation therapy he will be placed in acute short-term rehab. Reason For Visit: SUSPECTED METASTATIC LUNG CANCER Physical Exam Vital Signs: Temp Pulse Resp BP Pulse Ox 98.2 F 58 L 20 116/73 94 09/04/18 07:30 09/04/18 07:30 09/04/18 07:30 09/04/18 07:30 09/04/18 07:30 Intake & Output 09/03/18 09/04/18 09/05/18 06:59 06:59 06:59 Intake Total 3869 2864 Balance 3869 2864 Weight 68.9 kg 70.5 kg General appearance: PRESENT: no acute distress Eye exam: PRESENT: conjunctiva pink Mouth exam: PRESENT: moist Neck exam: ABSENT: carotid bruit, JVD, lymphadenopathy, thyromegaly Respiratory exam: PRESENT: clear to auscultation clare. ABSENT: rales, rhonchi, wheezes Cardiovascular exam: PRESENT: RRR. ABSENT: diastolic murmur, rubs, systolic murmur GI/Abdominal exam: PRESENT: normal bowel sounds, soft. ABSENT: distended, guarding, mass, organolmegaly, rebound, tenderness Neurological exam: PRESENT: alert, awake, oriented to time, oriented to situa tion Results Laboratory Results: 09/01/18 06:55 09/01/18 06:55 08/23/18 08/23/18 08/23/18 14:04 14:27 14:27 Creatine Kinase Cancelled 21 L Troponin I < 0.012 Impressions: Chest X-Ray 08/23/18 13:16 IMPRESSION: Findings worrisome for postobstructive pneumonia in the left upper lobe related to left hilar mass Abdomen/Pelvis CT 08/23/18 14:48 IMPRESSION: Malignant appearing left hilar mass with postobstructive collapse and consolidation left upper lobe. Bony metastatic lesions in the sternum and L5 vertebral body Malignant appearing Mediastinal and retroperitoneal lymph nodes. Multiple peritoneal implants without ascites. Chest CT 08/23/18 14:48 IMPRESSION: Malignant appearing left hilar mass with postobstructive collapse and consolidation left upper lobe. Bony metastatic lesions in the sternum and L5 vertebral body Malignant appearing Mediastinal and retroperitoneal lymph nodes. Multiple peritoneal implants without ascites. Head MRI 08/24/18 00:00 IMPRESSION: Innumerable enhancing lesions consistent with extensive metastatic disease to the infratentorial and supratentorial brain, as above. Mild associated mass effect. No midline shift. copyright 2011 [employer]- All Rights Reserved Assessment & Plan - Diagnosis (1) Small cell lung cancer, left upper lobe Is this a current diagnosis for this admission?: Yes Plan: Stage IV. Patient has been on radiation to his brain. He will be started on chemo as soon as he finished the radiation session to his brain. (2) Diffuse brain metastasis Is this a current diagnosis for this admission?: Yes Plan: Primary left lung. Patient is undergoing radiation to the brain (3) Type II diabetes mellitus Qualifiers: Diabetes mellitus oysterman insulin use: without prison use Diabetes mellitus complication status: with unspecified complications Qualified Code(s): E11.8 - Type 2 diabetes mellitus with unspecified complications Is this a current diagnosis for this admission?: Yes Plan: To new current regimen (4) Hypertension Qualifiers: Hypertension type: essential hypertension Qualified Code(s): I10 - Essential (primary) hypertension Is this a current diagnosis for this admission?: Yes Plan: Continue current regimen (5) Hyperlipidemia Is this a current diagnosis for this admission?: Yes Plan: Continue home med
[2018-09-04] MEDS: FUROSEMIDE 20 MG TABLET PO SCH (17:56)
[2018-09-04] MEDS: ATORVASTATIN CALCIUM 80 MG TABLET PO SCH (21:36)
[2018-09-05] MEDS: HEPARIN SOD (PORCINE) 5,000 UNIT/ML 1 ML SYRINGE SUBCUT SCH ×3 (05:29→22:21)
[2018-09-05] MEDS: TAMSULOSIN HCL 0.4 MG CAP.SR.24H PO SCH (07:37)
[2018-09-05] MEDS: LISINOPRIL 5 MG TABLET PO SCH (07:37)
[2018-09-05] MEDS: METFORMIN HCL 500 MG TABLET PO SCH ×2 (07:37→16:10)
--- NOTE | 2018-09-05 08:30 | PDOC PROGRESS REPORT ---
Subjective Progress Note for:: 09/05/18 Subjective:: Patient without complaints. DId well yesterday. ROS: Muscle soreness from Physical therapy. nausea last night. Good appetite. Reason For Visit: SUSPECTED METASTATIC LUNG CANCER Physical Exam Vital Signs: Temp Pulse Resp BP Pulse Ox 98.3 F 65 18 124/85 97 09/05/18 00:00 09/05/18 00:00 09/05/18 00:00 09/05/18 00:00 09/05/18 00:00 Intake & Output 09/04/18 09/05/18 09/06/18 06:59 06:59 06:59 Intake Total 2864 2829 Balance 2864 2829 Weight 70.5 kg 69.3 kg General appearance: PRESENT: well-developed, well-nourished Head exam: PRESENT: normocephalic Respiratory exam: PRESENT: unlabored Cardiovascular exam: PRESENT: RRR GI/Abdominal exam: PRESENT: soft. ABSENT: tenderness Extremities exam: ABSENT: pedal edema Neurological exam: PRESENT: alert, awake Psychiatric exam: PRESENT: appropriate affect Skin exam: PRESENT: normal color Results Laboratory Results: 09/01/18 06:55 09/01/18 06:55 08/23/18 08/23/18 08/23/18 14:04 14:27 14:27 Creatine Kinase Cancelled 21 L Troponin I < 0.012 Impressions: Chest X-Ray 08/23/18 13:16 IMPRESSION: Findings worrisome for postobstructive pneumonia in the left upper lobe related to left hilar mass Abdomen/Pelvis CT 08/23/18 14:48 IMPRESSION: Malignant appearing left hilar mass with postobstructive collapse and consolidation left upper lobe. Bony metastatic lesions in the sternum and L5 vertebral body Malignant appearing Mediastinal and retroperitoneal lymph nodes. Multiple peritoneal implants without ascites. Chest CT 08/23/18 14:48 IMPRESSION: Malignant appearing left hilar mass with postobstructive collapse and consolidation left upper lobe. Bony metastatic lesions in the sternum and L5 vertebral body Malignant appearing Mediastinal and retroperitoneal lymph nodes. Multiple peritoneal implants without ascites. Head MRI 08/24/18 00:00 IMPRESSION: Innumerable enhancing lesions consistent with extensive metastatic disease to the infratentorial and supratentorial brain, as above. Mild associated mass effect. No midline shift. copyright 2010 [employer]- All Rights Reserved Assessment & Plan - Diagnosis (1) Lung mass Is this a current diagnosis for this admission?: Yes (2) Brain metastases Is this a current diagnosis for this admission?: Yes (3) Risk for falls Is this a current diagnosis for this admission?: Yes (4) Nausea Is this a current diagnosis for this admission?: Yes (5) Small cell lung cancer, left upper lobe Is this a current diagnosis for this admission?: Yes Plan: Will finish radiation on 09/08/2018 and then will plan chemo and then transfer to SNF. - Plan Summary Plan Summary: He will continue PT and nutrition.
[2018-09-05] MEDS: METOPROLOL TARTRATE 25 MG TABLET PO SCH ×2 (09:58→22:19)
[2018-09-05] MEDS: ASPIRIN 81 MG TABLET, ENT COATED PO SCH (09:58)
[2018-09-05] MEDS: DEXAMETHASONE 4 MG TABLET PO SCH ×2 (10:00→22:19)
[2018-09-05] MEDS: FAMOTIDINE 20 MG TABLET PO SCH ×2 (10:00→22:25)
[2018-09-05] MEDS: INSULIN GLARGINE,HUM.REC.ANLOG 300 UNIT/3 ML INSULN.PEN SUBCUT SCH ×2 (10:02→22:22)
--- NOTE | 2018-09-05 16:45 | PDOC PROGRESS REPORT ---
Subjective Progress Note for:: 09/05/18 Subjective:: No adverse events overnight. He said his appetite continues to improve. He usually feels a little sick for a while after his radiation treatments but once he goes to sleep and wakes up the next morning he usually feels better. He said he feels like his strength is improving as well. He said that he was able to get up with assistance and use a walker to walk from his bed to the bathroom and then with assistance he was able to get back into his bed as well. Reason For Visit: SUSPECTED METASTATIC LUNG CANCER Physical Exam Vital Signs: Temp Pulse Resp BP Pulse Ox 98.0 F 93 18 104/64 90 L 09/05/18 11:32 09/05/18 11:32 09/05/18 11:32 09/05/18 11:32 09/05/18 11:32 Intake & Output 09/04/18 09/05/18 09/06/18 06:59 06:59 06:59 Intake Total 2864 2829 237 Balance 2864 2829 237 Weight 70.5 kg 69.3 kg General appearance: PRESENT: no acute distress, cooperative, disheveled, thin Respiratory exam: PRESENT: rhonchi - Left base, unlabored. ABSENT: accessory muscle use, crackles, tachypnea, wheezes Cardiovascular exam: PRESENT: RRR, +S1, +S2 Vascular exam: PRESENT: normal capillary refill GI/Abdominal exam: PRESENT: normal bowel sounds, soft. ABSENT: distended, guarding, rebound, tenderness Extremities exam: ABSENT: clubbing, pedal edema Musculoskeletal exam: PRESENT: normal inspection. ABSENT: deformity Neurological exam: PRESENT: alert, awake, oriented to person, oriented to place, oriented to time Psychiatric exam: PRESENT: appropriate affect, normal mood Skin exam: PRESENT: dry, warm Results Laboratory Results: 09/01/18 06:55 09/01/18 06:55 08/23/18 08/23/18 08/23/18 14:04 14:27 14:27 Creatine Kinase Cancelled 21 L Troponin I < 0.012 Impressions: Chest X-Ray 08/23/18 13:16 IMPRESSION: Findings worrisome for postobstructive pneumonia in the left upper lobe related to left hilar mass Abdomen/Pelvis CT 08/23/18 14:48 IMPRESSION: Malignant appearing left hilar mass with postobstructive collapse and consolidation left upper lobe. Bony metastatic lesions in the sternum and L5 vertebral body Malignant appearing Mediastinal and retroperitoneal lymph nodes. Multiple peritoneal implants without ascites. Chest CT 08/23/18 14:48 IMPRESSION: Malignant appearing left hilar mass with postobstructive collapse and consolidation left upper lobe. Bony metastatic lesions in the sternum and L5 vertebral body Malignant appearing Mediastinal and retroperitoneal lymph nodes. Multiple peritoneal implants without ascites. Head MRI 08/24/18 00:00 IMPRESSION: Innumerable enhancing lesions consistent with extensive metastatic disease to the infratentorial and supratentorial brain, as above. Mild associated mass effect. No midline shift. copyright 2011 [employer]- All Rights Reserved Assessment & Plan - Diagnosis (1) Widespread metastatic malignant neoplastic disease Is this a current diagnosis for this admission?: Yes Plan: Lung cancer primary. He is getting radiation treatments through this Tuesday, and then he is going to go to SNF for rehab. (2) Type II diabetes mellitus Qualifiers: Diabetes mellitus detention insulin use: without detention use Diabetes mellitus complication status: with unspecified complications Qualified Code(s): E11.8 - Type 2 diabetes mellitus with unspecified complications Is this a current diagnosis for this admission?: Yes Plan: Well-controlled on his current regimen - Time Time Spent with patient: 15-24 minutes
[2018-09-05] MEDS: FUROSEMIDE 20 MG TABLET PO SCH (17:26)
[2018-09-05] MEDS: ATORVASTATIN CALCIUM 80 MG TABLET PO SCH (22:19)
[2018-09-06] MEDS: HEPARIN SOD (PORCINE) 5,000 UNIT/ML 1 ML SYRINGE SUBCUT SCH ×3 (05:03→21:19)
[2018-09-06] MEDS: LISINOPRIL 5 MG TABLET PO SCH (07:56)
[2018-09-06] MEDS: METFORMIN HCL 500 MG TABLET PO SCH ×2 (09:37→18:19)
[2018-09-06] MEDS: TAMSULOSIN HCL 0.4 MG CAP.SR.24H PO SCH (09:37)
[2018-09-06] MEDS: INSULIN GLARGINE,HUM.REC.ANLOG 300 UNIT/3 ML INSULN.PEN SUBCUT SCH ×2 (09:38→23:01)
[2018-09-06] MEDS: DEXAMETHASONE 4 MG TABLET PO SCH ×2 (09:38→23:01)
[2018-09-06] MEDS: ASPIRIN 81 MG TABLET, ENT COATED PO SCH (09:38)
[2018-09-06] MEDS: METOPROLOL TARTRATE 25 MG TABLET PO SCH ×2 (09:39→23:04)
[2018-09-06] MEDS: FAMOTIDINE 20 MG TABLET PO SCH ×2 (09:39→23:06)
[2018-09-06] MEDS ORDERED: ONDANSETRON HCL INJ/PF 4 MG/2 ML SDV IV PRN (09:50)
[2018-09-06] MEDS ORDERED: DEXAMETHASONE SOD PHOSPHATE INJ 4 MG/1 ML VIAL IV ONE (10:08)
--- NOTE | 2018-09-06 10:14 | PDOC PROGRESS REPORT ---
Subjective Progress Note for:: 09/06/18 Subjective:: No adverse events overnight. This morning he started to have some nausea, and he had some abrupt vomiting. He also had an episode of diarrhea. In the course of vomiting he aspirated and his SPO2 dropped. A rapid response was called. He was put on a nonrebreather but his oxygen saturations only came up to about 88%. He was put on BiPAP and his saturations came up into the upper 90s and he was more comfortable. He was not able to take p.o. this morning because of nausea and so his Decadron dose is being reordered this morning for IV. 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 ABSENT: accessory muscle use, prolonged expiratory phas, retraction, wheezes Cardiovascular exam: PRESENT: tachycardia Vascular exam: PRESENT: normal capillary refill GI/Abdominal exam: PRESENT: normal bowel sounds, soft. ABSENT: distended, guarding, rebound, tenderness Extremities exam: ABSENT: clubbing, pedal edema Musculoskeletal exam: PRESENT: normal inspection. ABSENT: deformity Neurological exam: PRESENT: alert, awake, oriented to person, oriented to place, oriented to time, oriented to situation Psychiatric exam: PRESENT: flat affect Skin exam: PRESENT: dry, warm Results Laboratory Results: 09/01/18 06:55 09/01/18 06:55 08/23/18 08/23/18 08/23/18 14:04 14:27 14:27 Creatine Kinase Cancelled 21 L Troponin I < 0.012 Impressions: Chest X-Ray 08/23/18 13:16 IMPRESSION: Findings worrisome for postobstructive pneumonia in the left upper lobe related to left hilar mass Abdomen/Pelvis CT 08/23/18 14:48 IMPRESSION: Malignant appearing left hilar mass with postobstructive collapse and consolidation left upper lobe. Bony metastatic lesions in the sternum and L5 vertebral body Malignant appearing Mediastinal and retroperitoneal lymph nodes. Multiple peritoneal implants without ascites. Chest CT 08/23/18 14:48 IMPRESSION: Malignant appearing left hilar mass with postobstructive collapse and consolidation left upper lobe. Bony metastatic lesions in the sternum and L5 vertebral body Malignant appearing Mediastinal and retroperitoneal lymph nodes. Multiple peritoneal implants without ascites. Head MRI 08/24/18 00:00 IMPRESSION: Innumerable enhancing lesions consistent with extensive metastatic disease to the infratentorial and supratentorial brain, as above. Mild associated mass effect. No midline shift. copyright 2011 [employer]- All Rights Reserved Assessment & Plan - Diagnosis (1) Widespread metastatic malignant neoplastic disease Is this a current diagnosis for this admission?: Yes Plan: Lung cancer primary. He is getting radiation treatments through this Tuesday, and then he is going to go to SNF for rehab. As noted above, since he could not take his oral Decadron dose this morning we have reordered that as an IV dose. (2) Type II diabetes mellitus Qualifiers: Diabetes mellitus senior care insulin use: without senior care use Diabetes mellitus complication status: with unspecified complications Qualified Code(s): E11.8 - Type 2 diabetes mellitus with unspecified complications Is this a current diagnosis for this admission?: Yes Plan: Well-controlled on his current regimen (3) Aspiration into respiratory tract Qualifiers: Encounter type: initial encounter Qualified Code(s): T17.908A - Unspecified foreign body in respiratory tract, part unspecified causing other injury, initial encounter Is this a current diagnosis for this admission?: Yes Plan: I have not started him on antibiotics yet, but will keep an eye on him as the day goes on. We were able to reestablish IV access. He may yet need antibiotics. (4) Acute hypoxemic respiratory failure Is this a current diagnosis for this admission?: Yes Plan: Secondary to the aspiration. Doing well right now on BiPAP. We will let him rest on this for a little while, and we will try to wean him off of that later on. - Time Time Spent with patient: 25-34 minutes
[2018-09-06] MEDS: PIPERACILLIN SODIUM/TAZOBACTAM 3.375 GM in NORMAL SALINE 100 ML IV SCH (18:27)
[2018-09-06] MEDS: FUROSEMIDE 20 MG TABLET PO SCH (18:28)
[2018-09-06] MEDS: ATORVASTATIN CALCIUM 80 MG TABLET PO SCH (23:03)
[2018-09-07] MEDS: PIPERACILLIN SODIUM/TAZOBACTAM 3.375 GM in NORMAL SALINE 100 ML IV SCH ×5 (00:37→23:52)
[2018-09-07] MEDS: HEPARIN SOD (PORCINE) 5,000 UNIT/ML 1 ML SYRINGE SUBCUT SCH ×3 (05:03→21:49)
--- NOTE | 2018-09-07 08:05 | PDOC PROGRESS REPORT ---
Subjective Progress Note for:: 09/07/18 Subjective:: Patient is asleep on BiPAP machine. Nurses report that he had an episode of vomiting yesterday with aspiration and that his breathing has become much worse since that time. He did not receive radiation yesterday, due to this. Unsure if he will be able to come off BiPAP today for radiation. 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 Physical Exam Vital Signs: Temp Pulse Resp BP Pulse Ox 97.7 F 76 12 97/66 L 95 09/07/18 00:00 09/07/18 00:00 09/07/18 04:15 09/07/18 00:00 09/07/18 04:15 Intake & Output 09/06/18 09/07/18 09/08/18 06:59 06:59 06:59 Intake Total 657 200 Balance 657 200 Weight 72.1 kg 67.7 kg General appearance: PRESENT: no acute distress Head exam: PRESENT: normocephalic Respiratory exam: PRESENT: clear to auscultation clare, unlabored Cardiovascular exam: PRESENT: RRR Extremities exam: ABSENT: pedal edema Skin exam: PRESENT: normal color Results Laboratory Results: 09/01/18 06:55 09/01/18 06:55 08/23/18 08/23/18 08/23/18 14:04 14:27 14:27 Creatine Kinase Cancelled 21 L Troponin I < 0.012 Impressions: Chest X-Ray 08/23/18 13:16 IMPRESSION: Findings worrisome for postobstructive pneumonia in the left upper lobe related to left hilar mass Abdomen/Pelvis CT 08/23/18 14:48 IMPRESSION: Malignant appearing left hilar mass with postobstructive collapse and consolidation left upper lobe. Bony metastatic lesions in the sternum and L5 vertebral body Malignant appearing Mediastinal and retroperitoneal lymph nodes. Multiple peritoneal implants without ascites. Chest CT 08/23/18 14:48 IMPRESSION: Malignant appearing left hilar mass with postobstructive collapse and consolidation left upper lobe. Bony metastatic lesions in the sternum and L5 vertebral body Malignant appearing Mediastinal and retroperitoneal lymph nodes. Multiple peritoneal implants without ascites. Head MRI 08/24/18 00:00 IMPRESSION: Innumerable enhancing lesions consistent with extensive metastatic disease to the infratentorial and supratentorial brain, as above. Mild associated mass effect. No midline shift. copyright 2010 [employer]- All Rights Reserved Assessment & Plan - Diagnosis (1) Lung mass Is this a current diagnosis for this admission?: Yes (2) Brain metastases Is this a current diagnosis for this admission?: Yes (3) Risk for falls Is this a current diagnosis for this admission?: Yes (4) Nausea Is this a current diagnosis for this admission?: Yes (5) Small cell lung cancer, left upper lobe Is this a current diagnosis for this admission?: Yes Plan: He was to finish radiation in the next 1-2 days. However, this has been on hold. Plan to start chemo IFEANYI. Earliest I can arrange this is 5 days from now (due to weekend). However, patient and family have understood mayela akbar if he gets the chemo, he has a terminal illness and he may not improve at all. Now, if further medical complications arise, he may not even be strong enough to start the chemo. - Plan Summary Plan Summary: Continue antibiotics for aspiration pneumonia. I will continue to follow.
[2018-09-07] MEDS: NORMAL SALINE 1000 ML 1,000 ML IV PRN ×2 (08:26→21:58)
[2018-09-07] MEDS: METFORMIN HCL 500 MG TABLET PO SCH ×2 (10:11→15:42)
[2018-09-07] MEDS: INSULIN GLARGINE,HUM.REC.ANLOG 300 UNIT/3 ML INSULN.PEN SUBCUT SCH ×2 (10:11→21:48)
[2018-09-07] MEDS: TAMSULOSIN HCL 0.4 MG CAP.SR.24H PO SCH (10:17)
[2018-09-07] MEDS: DEXAMETHASONE SOD PHOSPHATE INJ 4 MG/1 ML VIAL IV SCH (10:17)
[2018-09-07] MEDS: METOPROLOL TARTRATE 25 MG TABLET PO SCH ×2 (10:17→21:50)
[2018-09-07] MEDS: ASPIRIN 81 MG TABLET, ENT COATED PO SCH (10:19)
[2018-09-07] MEDS: FAMOTIDINE 20 MG TABLET PO SCH ×2 (10:19→21:50)
[2018-09-07] MEDS: LISINOPRIL 5 MG TABLET PO SCH (10:27)
[2018-09-07] MEDS ORDERED: ONDANSETRON HCL INJ/PF 4 MG/2 ML SDV IV PRN (14:30)
--- NOTE | 2018-09-07 17:03 | PDOC PROGRESS REPORT ---
Subjective Progress Note for:: 09/07/18 Subjective:: No adverse events overnight. He was taken off BiPAP and he is been on the nasal cannula since then. He looks fatigued but overall he is feeling better since yesterday. No fevers. He has had a nonproductive cough. He started to eat again and is not had any more nausea or vomiting. 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 ABSENT: accessory muscle use, crackles, tachypnea, rhonchi, wheezes Cardiovascular exam: PRESENT: RRR, +S1, +S2 Vascular exam: PRESENT: normal capillary refill GI/Abdominal exam: PRESENT: normal bowel sounds, soft. ABSENT: distended, guarding, rebound, tenderness Extremities exam: ABSENT: clubbing, pedal edema Musculoskeletal exam: PRESENT: normal inspection. ABSENT: deformity Neurological exam: PRESENT: alert, awake, oriented to person, oriented to place, oriented to time Psychiatric exam: PRESENT: appropriate affect, normal mood Skin exam: PRESENT: dry, warm Results Laboratory Results: 09/01/18 06:55 09/01/18 06:55 08/23/18 08/23/18 08/23/18 14:04 14:27 14:27 Creatine Kinase Cancelled 21 L Troponin I < 0.012 Impressions: Chest X-Ray 08/23/18 13:16 IMPRESSION: Findings worrisome for postobstructive pneumonia in the left upper lobe related to left hilar mass Abdomen/Pelvis CT 08/23/18 14:48 IMPRESSION: Malignant appearing left hilar mass with postobstructive collapse and consolidation left upper lobe. Bony metastatic lesions in the sternum and L5 vertebral body Malignant appearing Mediastinal and retroperitoneal lymph nodes. Multiple peritoneal implants without ascites. Chest CT 08/23/18 14:48 IMPRESSION: Malignant appearing left hilar mass with postobstructive collapse and consolidation left upper lobe. Bony metastatic lesions in the sternum and L5 vertebral body Malignant appearing Mediastinal and retroperitoneal lymph nodes. Multiple peritoneal implants without ascites. Head MRI 08/24/18 00:00 IMPRESSION: Innumerable enhancing lesions consistent with extensive metastatic disease to the infratentorial and supratentorial brain, as above. Mild associated mass effect. No midline shift. copyright 2010 [employer]- All Rights Reserved Assessment & Plan - Diagnosis (1) Widespread metastatic malignant neoplastic disease Is this a current diagnosis for this admission?: Yes Plan: Lung cancer primary. He is getting radiation treatments through this Tuesday, and then he is going to go to SNF for rehab. His Decadron has been switched to IV per oncology. He did not get radiation last night, and will let radiation oncology as well as the oncology service to decide whether or not it is okay for him to resume his radiation treatments today. He is tentatively scheduled to start chemotherapy next week. (2) Type II diabetes mellitus Qualifiers: Diabetes mellitus senior care insulin use: without roasterman use Diabetes mellitus complication status: with unspecified complications Qualified Code(s): E11.8 - Type 2 diabetes mellitus with unspecified complications Is this a current diagnosis for this admission?: Yes Plan: Well-controlled on his current regimen (3) Aspiration into respiratory tract Qualifiers: Encounter type: initial encounter Qualified Code(s): T17.908A - Unspecified foreign body in respiratory tract, part unspecified causing other injury, initial encounter Is this a current diagnosis for this admission?: Yes Plan: He is improved substantially from yesterday. He is on supplemental O2 per nasal cannula. Getting aggressive pulmonary toilet. We empirically started antibiotics on him yesterday. (4) Acute hypoxemic respiratory failure Is this a current diagnosis for this admission?: Yes Plan: Currently stable on nasal cannula. Aggressive pulmonary toilet. - Time Time Spent with patient: 25-34 minutes
[2018-09-07] MEDS: FUROSEMIDE 20 MG TABLET PO SCH (17:49)
[2018-09-07] MEDS: INSULIN LISPRO 100 UNIT/ML 3 ML VIAL SUBCUT PRN (21:49)
[2018-09-07] MEDS: ATORVASTATIN CALCIUM 80 MG TABLET PO SCH (21:50)
[2018-09-08] MEDS: PIPERACILLIN SODIUM/TAZOBACTAM 3.375 GM in NORMAL SALINE 100 ML IV SCH ×4 (05:19→23:28)
[2018-09-08] MEDS: HEPARIN SOD (PORCINE) 5,000 UNIT/ML 1 ML SYRINGE SUBCUT SCH ×3 (05:22→21:45)
[2018-09-08] MEDS: DEXAMETHASONE SOD PHOSPHATE INJ 4 MG/1 ML VIAL IV SCH (08:17)
[2018-09-08] MEDS: METFORMIN HCL 500 MG TABLET PO SCH ×2 (08:17→17:56)
[2018-09-08] MEDS: TAMSULOSIN HCL 0.4 MG CAP.SR.24H PO SCH (08:17)
[2018-09-08] MEDS: LISINOPRIL 5 MG TABLET PO SCH (08:18)
--- NOTE | 2018-09-08 08:46 | PDOC PROGRESS REPORT ---
Subjective Progress Note for:: 09/08/18 Subjective:: Patient feels okay today he has not been out of bed for about 24 hours now, but is able to move all extremities and is awake and alert. Today we had a long discussion, I also discussed his case with Dr. Manzo, from an oncology standpoint we believe he is appropriate to consider chemotherapy. Orders are written for chemotherapy to initiate on Tuesday and I believe we should keep him here until we can initiate chemotherapy. Many times patients with small cell lung cancer can have an acute worsening of condition especially with whole brain radiation, but when they are given aggressive chemotherapy they can bounce back very quickly. I believe his performance status in the setting of small cell lung cancer metastatic is reasonable for initiation of chemotherapy. 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 ABSENT: rales, rhonchi, wheezes GI/Abdominal exam: PRESENT: normal bowel sounds, soft. ABSENT: distended, guarding, mass, organolmegaly, rebound, tenderness Rectal exam: PRESENT: deferred Neurological exam: PRESENT: alert, awake, oriented to person, oriented to place, oriented to time, oriented to situation, CN II-XII grossly intact. ABSENT: motor sensory deficit Results Laboratory Results: 09/01/18 06:55 09/01/18 06:55 08/23/18 08/23/18 08/23/18 14:04 14:27 14:27 Creatine Kinase Cancelled 21 L Troponin I < 0.012 Impressions: Chest X-Ray 08/23/18 13:16 IMPRESSION: Findings worrisome for postobstructive pneumonia in the left upper lobe related to left hilar mass Abdomen/Pelvis CT 08/23/18 14:48 IMPRESSION: Malignant appearing left hilar mass with postobstructive collapse and consolidation left upper lobe. Bony metastatic lesions in the sternum and L5 vertebral body Malignant appearing Mediastinal and retroperitoneal lymph nodes. Multiple peritoneal implants without ascites. Chest CT 08/23/18 14:48 IMPRESSION: Malignant appearing left hilar mass with postobstructive collapse and consolidation left upper lobe. Bony metastatic lesions in the sternum and L5 vertebral body Malignant appearing Mediastinal and retroperitoneal lymph nodes. Multiple peritoneal implants without ascites. Head MRI 08/24/18 00:00 IMPRESSION: Innumerable enhancing lesions consistent with extensive metastatic disease to the infratentorial and supratentorial brain, as above. Mild associated mass effect. No midline shift. copyright 2010 [employer]- All Rights Reserved Status: Image reviewed by me Assessment & Plan - Diagnosis (1) Small cell lung cancer, left upper lobe Is this a current diagnosis for this admission?: Yes Plan: Stage IV small cell lung cancer, plan for chemotherapy initiation on Tuesday. I will go ahead and order labs for today. No labs were done since 09/01/2018. - Time Time Spent with patient: 35 or more minutes - Inpatient Certification Based on my medical assessment, after consideration of the patient's comorbidities, presenting symptoms, or acuity I expect that the services needed warrant INPATIENT care.: Yes I certify that my determination is in accordance with my understanding of Medicare's requirements for reasonable and necessary INPATIENT services [42 CFR 412.3e].: Yes Medical Necessity: Risk of Complication if Not Cared For in Hospital
[2018-09-08] MEDS: METOPROLOL TARTRATE 25 MG TABLET PO SCH ×2 (10:58→21:02)
[2018-09-08] MEDS: FAMOTIDINE 20 MG TABLET PO SCH ×2 (10:58→21:41)
[2018-09-08] MEDS: ASPIRIN 81 MG TABLET, ENT COATED PO SCH (10:58)
[2018-09-08] MEDS: INSULIN GLARGINE,HUM.REC.ANLOG 300 UNIT/3 ML INSULN.PEN SUBCUT SCH ×2 (10:59→21:46)
[2018-09-08] MEDS: NORMAL SALINE 1000 ML 1,000 ML IV PRN ×2 (11:09→23:36)
[2018-09-08] MEDS: INSULIN LISPRO 100 UNIT/ML 3 ML VIAL SUBCUT PRN ×2 (12:36→17:57)
[2018-09-08 16:44] LABS: HEMATOCRIT 32.7 % (37.9-51.0); HEMOGLOBIN 11.2 g/dL (13.5-17.0); MEAN CORPUSCULAR HEMOGLOBIN 29.5 pg (27.0-33.4); MEAN CORPUSCULAR HGB CONC 34.4 g/dL (32.0-36.0); MEAN CORPUSCULAR VOLUME 86 fl (80-97); PLATELET COUNT 113 10^3/uL (150-450); RED BLOOD COUNT 3.82 10^6/uL (4.35-5.55); RED CELL DISTRIBUTION WIDTH 16.9 % (11.5-14.0); WHITE BLOOD COUNT 8.2 10^3/uL (4.0-10.5)
[2018-09-08 17:04] LABS: ALANINE AMINOTRANSFERASE 33 U/L (21-72); ALKALINE PHOSPHATASE 75 U/L (38-126); ASPARTATE AMINO TRANSFERASE 31 U/L (17-59); BILIRUBIN,DIRECT 0.3 mg/dL (0.0-0.4); BILIRUBIN,TOTAL 0.6 mg/dL (0.2-1.3); BLOOD UREA NITROGEN 18 mg/dL (7-20); CALCIUM 7.5 mg/dL (8.4-10.2); GLUCOSE 193 mg/dL (75-110)
[2018-09-08 17:09] LABS: CARBON DIOXIDE 29 mmol/L (22-30); CHLORIDE 106 mmol/L (98-107); SODIUM 137.8 mmol/L (137-145)
[2018-09-08 17:10] LABS: ABSOLUTE LYMPHOCYTES# (MANUAL) 0.3 10^3/uL (0.5-4.7); ABSOLUTE MONOCYTES # (MANUAL) 0.3 10^3/uL (0.1-1.4); ABSOLUTE NEUTROPHILS# (MANUAL) 7.5 10^3/uL (1.7-8.2); ACANTHOCYTES 2+; BASOPHILS % (MANUAL) 0 % (0-2); BURR CELLS 1+; EOSINOPHILS % (MANUAL) 0 % (0-6); LYMPHOCYTES % (MANUAL) 3 % (13-45); MONOCYTES % (MANUAL) 4 % (3-13); PLATELET CLUMPS PRESENT; SCHISTOCYTES 1+; SEGMENTED NEUTROPHILS % (MAN) 92 % (42-78); TOTAL CELLS COUNTED 100; TOXIC GRANULATION 1+
[2018-09-08 17:11] LABS: ANISOCYTOSIS 1+; POIKILOCYTOSIS 3+; POLYCHROMASIA SLIGHT
[2018-09-08 17:13] LABS: ANION GAP 3 (5-19)
[2018-09-08] MEDS: FUROSEMIDE 20 MG TABLET PO SCH (17:57)
[2018-09-08] MEDS ORDERED: POTASSIUM CHLORIDE 10 MEQ CAPSULE.ER PO ONE ×2 (19:19→21:35)
--- NOTE | 2018-09-08 19:22 | PDOC PROGRESS REPORT ---
Subjective Progress Note for:: 09/08/18 Subjective:: No adverse events overnight. No new complaints. No chest pain or shortness of breath. Cough is been nonproductive. He has been afebrile. Eating and drinking without difficulty. 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 ABSENT: accessory muscle use, crackles, tachypnea, rhonchi, wheezes Cardiovascular exam: PRESENT: RRR, +S1, +S2 Vascular exam: PRESENT: normal capillary refill GI/Abdominal exam: PRESENT: normal bowel sounds, soft. ABSENT: distended, guarding, rebound, tenderness Extremities exam: ABSENT: clubbing, pedal edema Musculoskeletal exam: PRESENT: normal inspection. ABSENT: deformity Neurological exam: PRESENT: alert, awake, oriented to person, oriented to place, oriented to time Psychiatric exam: PRESENT: appropriate affect, normal mood Skin exam: PRESENT: dry, warm Results Laboratory Results: 09/08/18 16:30 09/08/18 16:30 09/08/18 09/08/18 16:30 16:30 WBC 8.2 RBC 3.82 L Hgb 11.2 L Hct 32.7 L MCV 86 MCH 29.5 MCHC 34.4 RDW 16.9 H Plt Count 113 L Seg Neutrophils % Not Reportable Lymphocytes % Not Reportable Monocytes % Not Reportable Eosinophils % Not Reportable Basophils % Not Reportable Absolute Neutrophils Not Reportable Absolute Lymphocytes Not Reportable Absolute Monocytes Not Reportable Absolute Eosinophils Not Reportable Absolute Basophils Not Reportable Sodium 137.8 Potassium 3.0 L* Chloride 106 Carbon Dioxide 29 Anion Gap 3 L BUN 18 Creatinine 0.65 Est GFR ( Amer) > 60 Est GFR (Non-Af Amer) > 60 Glucose 193 H Calcium 7.5 L Total Bilirubin 0.6 AST 31 ALT 33 Alkaline Phosphatase 75 Total Protein 4.0 L Albumin 2.0 L 08/23/18 08/23/18 08/23/18 14:04 14:27 14:27 Creatine Kinase Cancelled 21 L Troponin I < 0.012 Impressions: Chest X-Ray 08/23/18 13:16 IMPRESSION: Findings worrisome for postobstructive pneumonia in the left upper lobe related to left hilar mass Abdomen/Pelvis CT 08/23/18 14:48 IMPRESSION: Malignant appearing left hilar mass with postobstructive collapse and consolidation left upper lobe. Bony metastatic lesions in the sternum and L5 vertebral body Malignant appearing Mediastinal and retroperitoneal lymph nodes. Multiple peritoneal implants without ascites. Chest CT 08/23/18 14:48 IMPRESSION: Malignant appearing left hilar mass with postobstructive collapse and consolidation left upper lobe. Bony metastatic lesions in the sternum and L5 vertebral body Malignant appearing Mediastinal and retroperitoneal lymph nodes. Multiple peritoneal implants without ascites. Head MRI 08/24/18 00:00 IMPRESSION: Innumerable enhancing lesions consistent with extensive metastatic disease to the infratentorial and supratentorial brain, as above. Mild associated mass effect. No midline shift. copyright 2011 [employer]- All Rights Reserved Assessment & Plan - Diagnosis (1) Widespread metastatic malignant neoplastic disease Is this a current diagnosis for this admission?: Yes Plan: Oncology thinks he is okay to start chemotherapy and they recommend keeping him here until they can start it on Tuesday. (2) Type II diabetes mellitus Qualifiers: Diabetes mellitus property coordinator insulin use: without prison use Diabetes mellitus complication status: with unspecified complications Qualified Code(s): E11.8 - Type 2 diabetes mellitus with unspecified complications Is this a current diagnosis for this admission?: Yes Plan: Well-controlled on his current regimen (3) Aspiration into respiratory tract Qualifiers: Encounter type: initial encounter Qualified Code(s): T17.908A - Unspecified foreign body in respiratory tract, part unspecified causing other injury, initial encounter Is this a current diagnosis for this admission?: Yes Plan: He is doing very well considering how bad he looked the day he aspirated. He is on supplemental O2 per nasal cannula. Getting aggressive pulmonary toilet. We empirically started antibiotics on him, and we plan to treat him for about 5 days. (4) Acute hypoxemic respiratory failure Is this a current diagnosis for this admission?: Yes Plan: Currently stable on 2 L nasal cannula, will wean as tolerated. - Time Time Spent with patient: 15-24 minutes
[2018-09-08] MEDS: ATORVASTATIN CALCIUM 80 MG TABLET PO SCH (21:42)
[2018-09-09] MEDS: PIPERACILLIN SODIUM/TAZOBACTAM 3.375 GM in NORMAL SALINE 100 ML IV SCH ×4 (05:33→23:38)
[2018-09-09] MEDS: HEPARIN SOD (PORCINE) 5,000 UNIT/ML 1 ML SYRINGE SUBCUT SCH ×3 (05:35→21:33)
[2018-09-09] MEDS: DEXAMETHASONE SOD PHOSPHATE INJ 4 MG/1 ML VIAL IV SCH (09:37)
[2018-09-09] MEDS: METFORMIN HCL 500 MG TABLET PO SCH ×2 (09:38→17:48)
[2018-09-09] MEDS: FAMOTIDINE 20 MG TABLET PO SCH ×2 (09:38→21:44)
[2018-09-09] MEDS: ASPIRIN 81 MG TABLET, ENT COATED PO SCH (09:38)
[2018-09-09] MEDS: LISINOPRIL 5 MG TABLET PO SCH (09:38)
[2018-09-09] MEDS: TAMSULOSIN HCL 0.4 MG CAP.SR.24H PO SCH (09:38)
[2018-09-09] MEDS: METOPROLOL TARTRATE 25 MG TABLET PO SCH ×2 (09:38→21:43)
[2018-09-09] MEDS: INSULIN GLARGINE,HUM.REC.ANLOG 300 UNIT/3 ML INSULN.PEN SUBCUT SCH ×2 (09:39→21:44)
[2018-09-09] MEDS: NORMAL SALINE 1000 ML 1,000 ML IV PRN ×2 (10:53→23:40)
--- NOTE | 2018-09-09 15:30 | PDOC PROGRESS REPORT ---
Subjective Progress Note for:: 09/09/18 Subjective:: Patient feeling better today. He states that he was able to have radiation yesterday. No further aspiration. No breathing problems today. ROS: no nausea. muscles remain sore from PT. 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 ABSENT: tenderness Extremities exam: ABSENT: pedal edema Neurological exam: PRESENT: alert, awake Psychiatric exam: PRESENT: appropriate affect Skin exam: PRESENT: normal color Results Laboratory Results: 09/08/18 16:30 09/08/18 16:30 09/08/18 09/08/18 16:30 16:30 WBC 8.2 RBC 3.82 L Hgb 11.2 L Hct 32.7 L MCV 86 MCH 29.5 MCHC 34.4 RDW 16.9 H Plt Count 113 L Seg Neutrophils % Not Reportable Lymphocytes % Not Reportable Monocytes % Not Reportable Eosinophils % Not Reportable Basophils % Not Reportable Absolute Neutrophils Not Reportable Absolute Lymphocytes Not Reportable Absolute Monocytes Not Reportable Absolute Eosinophils Not Reportable Absolute Basophils Not Reportable Sodium 137.8 Potassium 3.0 L* Chloride 106 Carbon Dioxide 29 Anion Gap 3 L BUN 18 Creatinine 0.65 Est GFR ( Amer) > 60 Est GFR (Non-Af Amer) > 60 Glucose 193 H Calcium 7.5 L Total Bilirubin 0.6 AST 31 ALT 33 Alkaline Phosphatase 75 Total Protein 4.0 L Albumin 2.0 L 08/23/18 08/23/18 08/23/18 14:04 14:27 14:27 Creatine Kinase Cancelled 21 L Troponin I < 0.012 Impressions: Chest X-Ray 08/23/18 13:16 IMPRESSION: Findings worrisome for postobstructive pneumonia in the left upper lobe related to left hilar mass Abdomen/Pelvis CT 08/23/18 14:48 IMPRESSION: Malignant appearing left hilar mass with postobstructive collapse and consolidation left upper lobe. Bony metastatic lesions in the sternum and L5 vertebral body Malignant appearing Mediastinal and retroperitoneal lymph nodes. Multiple peritoneal implants without ascites. Chest CT 08/23/18 14:48 IMPRESSION: Malignant appearing left hilar mass with postobstructive collapse and consolidation left upper lobe. Bony metastatic lesions in the sternum and L5 vertebral body Malignant appearing Mediastinal and retroperitoneal lymph nodes. Multiple peritoneal implants without ascites. Head MRI 08/24/18 00:00 IMPRESSION: Innumerable enhancing lesions consistent with extensive metastatic disease to the infratentorial and supratentorial brain, as above. Mild associated mass effect. No midline shift. copyright 2010 [employer]- All Rights Reserved Assessment & Plan - Diagnosis (1) Lung mass Is this a current diagnosis for this admission?: Yes (2) Brain metastases Is this a current diagnosis for this admission?: Yes (3) Risk for falls Is this a current diagnosis for this admission?: Yes (4) Nausea Is this a current diagnosis for this admission?: Yes (5) Small cell lung cancer, left upper lobe Is this a current diagnosis for this admission?: Yes - Plan Summary Plan Summary: He has now completed his radiation therapy to the brain. Plan [place]/Etoposide chemotherapy to be given , Tue, . of this coming week here in the hospital with plans to transfer to Rehab on Tuesday. I discussed side effects of chemotherapy in detail with patient today. All questions were answered. Plan to check CBC, CMP on Tuesday. He will continue to try to gain weight and increase mobility.
--- NOTE | 2018-09-09 16:34 | PDOC PROGRESS REPORT ---
Subjective Progress Note for:: 09/09/18 Subjective:: No adverse events overnight. No new complaints. He is been eating and drinking without difficulty. Breathing has been comfortable. He still has a nonproductive cough. 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 ABSENT: accessory muscle use, crackles, tachypnea, rhonchi, wheezes Cardiovascular exam: PRESENT: RRR, +S1, +S2 Vascular exam: PRESENT: normal capillary refill GI/Abdominal exam: PRESENT: normal bowel sounds, soft. ABSENT: distended, guarding, rebound, tenderness Extremities exam: ABSENT: clubbing, pedal edema Musculoskeletal exam: PRESENT: normal inspection. ABSENT: deformity Neurological exam: PRESENT: alert, awake, oriented to person, oriented to place, oriented to time Psychiatric exam: PRESENT: appropriate affect, normal mood Skin exam: PRESENT: dry, warm Results Laboratory Results: 09/08/18 16:30 09/08/18 16:30 09/08/18 09/08/18 16:30 16:30 WBC 8.2 RBC 3.82 L Hgb 11.2 L Hct 32.7 L MCV 86 MCH 29.5 MCHC 34.4 RDW 16.9 H Plt Count 113 L Seg Neutrophils % Not Reportable Lymphocytes % Not Reportable Monocytes % Not Reportable Eosinophils % Not Reportable Basophils % Not Reportable Absolute Neutrophils Not Reportable Absolute Lymphocytes Not Reportable Absolute Monocytes Not Reportable Absolute Eosinophils Not Reportable Absolute Basophils Not Reportable Sodium 137.8 Potassium 3.0 L* Chloride 106 Carbon Dioxide 29 Anion Gap 3 L BUN 18 Creatinine 0.65 Est GFR ( Amer) > 60 Est GFR (Non-Af Amer) > 60 Glucose 193 H Calcium 7.5 L Total Bilirubin 0.6 AST 31 ALT 33 Alkaline Phosphatase 75 Total Protein 4.0 L Albumin 2.0 L 08/23/18 08/23/18 08/23/18 14:04 14:27 14:27 Creatine Kinase Cancelled 21 L Troponin I < 0.012 Impressions: Chest X-Ray 08/23/18 13:16 IMPRESSION: Findings worrisome for postobstructive pneumonia in the left upper lobe related to left hilar mass Abdomen/Pelvis CT 08/23/18 14:48 IMPRESSION: Malignant appearing left hilar mass with postobstructive collapse and consolidation left upper lobe. Bony metastatic lesions in the sternum and L5 vertebral body Malignant appearing Mediastinal and retroperitoneal lymph nodes. Multiple peritoneal implants without ascites. Chest CT 08/23/18 14:48 IMPRESSION: Malignant appearing left hilar mass with postobstructive collapse and consolidation left upper lobe. Bony metastatic lesions in the sternum and L5 vertebral body Malignant appearing Mediastinal and retroperitoneal lymph nodes. Multiple peritoneal implants without ascites. Head MRI 08/24/18 00:00 IMPRESSION: Innumerable enhancing lesions consistent with extensive metastatic disease to the infratentorial and supratentorial brain, as above. Mild associated mass effect. No midline shift. copyright 2010 [employer]- All Rights Reserved Assessment & Plan - Diagnosis (1) Widespread metastatic malignant neoplastic disease Is this a current diagnosis for this admission?: Yes Plan: Oncology thinks he is okay to start chemotherapy and they recommend keeping him here until they can start it on Tuesday. He will complete 3 days of chemother apy and we will plan to get him out of here around Tuesday of next week to a halfway facility. (2) Type II diabetes mellitus Qualifiers: Diabetes mellitus director long term care insulin use: without director long term care use Diabetes mellitus complication status: with unspecified complications Qualified Code(s): E11.8 - Type 2 diabetes mellitus with unspecified complications Is this a current diagnosis for this admission?: Yes Plan: Well-controlled on his current regimen (3) Aspiration into respiratory tract Qualifiers: Encounter type: initial encounter Qualified Code(s): T17.908A - Unspecified foreign body in respiratory tract, part unspecified causing other injury, initial encounter Is this a current diagnosis for this admission?: Yes Plan: He is doing very well considering how bad he looked the day he aspirated. He is on supplemental O2 per nasal cannula. Getting aggressive pulmonary toilet. We empirically started antibiotics on him, and we plan to treat him for about 5 days. (4) Acute hypoxemic respiratory failure Is this a current diagnosis for this admission?: Yes Plan: Currently stable on 2 L nasal cannula, will wean as tolerated. - Time Time Spent with patient: 15-24 minutes
[2018-09-09] MEDS: FUROSEMIDE 20 MG TABLET PO SCH (17:48)
[2018-09-09] MEDS: ATORVASTATIN CALCIUM 80 MG TABLET PO SCH (21:44)
[2018-09-10] MEDS: HEPARIN SOD (PORCINE) 5,000 UNIT/ML 1 ML SYRINGE SUBCUT SCH ×3 (05:26→22:14)
[2018-09-10] MEDS: PIPERACILLIN SODIUM/TAZOBACTAM 3.375 GM in NORMAL SALINE 100 ML IV SCH ×4 (05:27→23:15)
[2018-09-10] MEDS: LISINOPRIL 5 MG TABLET PO SCH (08:18)
[2018-09-10] MEDS: TAMSULOSIN HCL 0.4 MG CAP.SR.24H PO SCH (08:21)
[2018-09-10] MEDS: METFORMIN HCL 500 MG TABLET PO SCH ×2 (08:21→17:17)
[2018-09-10] MEDS: DEXAMETHASONE SOD PHOSPHATE INJ 4 MG/1 ML VIAL IV SCH (08:22)
[2018-09-10] MEDS: FAMOTIDINE 20 MG TABLET PO SCH ×2 (09:41→22:13)
[2018-09-10] MEDS: METOPROLOL TARTRATE 25 MG TABLET PO SCH ×2 (09:42→22:13)
[2018-09-10] MEDS: INSULIN GLARGINE,HUM.REC.ANLOG 300 UNIT/3 ML INSULN.PEN SUBCUT SCH ×2 (09:46→22:13)
[2018-09-10] MEDS: ASPIRIN 81 MG TABLET, ENT COATED PO SCH (09:46)
[2018-09-10] MEDS: NORMAL SALINE 1000 ML 1,000 ML IV PRN (16:13)
--- NOTE | 2018-09-10 16:55 | PDOC PROGRESS REPORT ---
Subjective Progress Note for:: 09/10/18 Subjective:: No adverse events overnight. No new complaints. He is been eating and drinking without difficulty. He has been able to rest comfortably. Breathing has been comfortable. He still has a nonproductive cough. 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 ABSENT: accessory muscle use, crackles, tachypnea, rhonchi, wheezes Cardiovascular exam: PRESENT: RRR, +S1, +S2 Vascular exam: PRESENT: normal capillary refill GI/Abdominal exam: PRESENT: normal bowel sounds, soft. ABSENT: distended, guarding, rebound, tenderness Extremities exam: ABSENT: clubbing, pedal edema Musculoskeletal exam: PRESENT: normal inspection. ABSENT: deformity Neurological exam: PRESENT: alert, awake, oriented to person, oriented to place, oriented to time Psychiatric exam: PRESENT: appropriate affect, normal mood Skin exam: PRESENT: dry, warm Results Laboratory Results: 09/08/18 16:30 09/08/18 16:30 08/23/18 08/23/18 08/23/18 14:04 14:27 14:27 Creatine Kinase Cancelled 21 L Troponin I < 0.012 Impressions: Chest X-Ray 08/23/18 13:16 IMPRESSION: Findings worrisome for postobstructive pneumonia in the left upper lobe related to left hilar mass Abdomen/Pelvis CT 08/23/18 14:48 IMPRESSION: Malignant appearing left hilar mass with postobstructive collapse and consolidation left upper lobe. Bony metastatic lesions in the sternum and L5 vertebral body Malignant appearing Mediastinal and retroperitoneal lymph nodes. Multiple peritoneal implants without ascites. Chest CT 08/23/18 14:48 IMPRESSION: Malignant appearing left hilar mass with postobstructive collapse and consolidation left upper lobe. Bony metastatic lesions in the sternum and L5 vertebral body Malignant appearing Mediastinal and retroperitoneal lymph nodes. Multiple peritoneal implants without ascites. Head MRI 08/24/18 00:00 IMPRESSION: Innumerable enhancing lesions consistent with extensive metastatic disease to the infratentorial and supratentorial brain, as above. Mild associated mass effect. No midline shift. copyright 2010 [employer]- All Rights Reserved Assessment & Plan - Diagnosis (1) Widespread metastatic malignant neoplastic disease Is this a current diagnosis for this admission?: Yes Plan: Oncology thinks he is okay to start chemotherapy and they recommend keeping him here until they can start it on Tuesday. He will complete 3 days of chemotherapy and we will plan to get him out of here around Tuesday of next week to a [facility] facility. (2) Type II diabetes mellitus Qualifiers: Diabetes mellitus intermodal customer service insulin use: without correction use Diabetes mellitus complication status: with unspecified complications Qualified Code(s): E11.8 - Type 2 diabetes mellitus with unspecified complications Is this a current diagnosis for this admission?: Yes Plan: Well-controlled on his current regimen (3) Aspiration into respiratory tract Qualifiers: Encounter type: initial encounter Qualified Code(s): T17.908A - Unspecified foreign body in respiratory tract, part unspecified causing other injury, initial encounter Is this a current diagnosis for this admission?: Yes Plan: He is doing very well considering how bad he looked the day he aspirated. He is on supplemental O2 per nasal cannula. Getting aggressive pulmonary toilet. We empirically started antibiotics on him, and we plan to treat him for about 5 d ays. (4) Acute hypoxemic respiratory failure Is this a current diagnosis for this admission?: Yes Plan: Currently stable on 2 L nasal cannula, will wean as tolerated. - Time Time Spent with patient: 15-24 minutes
[2018-09-10] MEDS: FUROSEMIDE 20 MG TABLET PO SCH (17:17)
[2018-09-10] MEDS: ATORVASTATIN CALCIUM 80 MG TABLET PO SCH (22:13)
[2018-09-11] MEDS: NORMAL SALINE 1000 ML 1,000 ML IV PRN ×2 (03:30→12:41)
[2018-09-11] MEDS: HEPARIN SOD (PORCINE) 5,000 UNIT/ML 1 ML SYRINGE SUBCUT SCH ×3 (05:03→21:36)
[2018-09-11] MEDS: PIPERACILLIN SODIUM/TAZOBACTAM 3.375 GM in NORMAL SALINE 100 ML IV SCH ×3 (05:11→17:11)
[2018-09-11] MEDS: INSULIN GLARGINE,HUM.REC.ANLOG 300 UNIT/3 ML INSULN.PEN SUBCUT SCH ×2 (09:12→21:45)
[2018-09-11] MEDS: DEXAMETHASONE SOD PHOSPHATE INJ 4 MG/1 ML VIAL IV SCH (09:15)
[2018-09-11] MEDS: METFORMIN HCL 500 MG TABLET PO SCH ×2 (09:15→17:11)
[2018-09-11] MEDS: TAMSULOSIN HCL 0.4 MG CAP.SR.24H PO SCH (09:15)
[2018-09-11] MEDS: LISINOPRIL 5 MG TABLET PO SCH (09:15)
--- NOTE | 2018-09-11 09:15 | PDOC PROGRESS REPORT ---
Subjective Progress Note for:: 09/11/18 Subjective:: No new complaints. Continues to try to eat and exercise, but has not been up walking. Muscles are still sore after exercising. ROS: No dyspnea, constipation, nasuea. 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 Physical Exam Vital Signs: Temp Pulse Resp BP Pulse Ox 97.5 F 75 18 136/79 H 97 09/11/18 07:35 09/11/18 07:35 09/11/18 07:35 09/11/18 07:35 09/11/18 07:35 Intake & Output 09/10/18 09/11/18 09/12/18 06:59 06:59 06:59 Intake Total 3141 3164 Output Total 300 300 Balance 2841 2864 Weight 74.4 kg 74.8 kg General appearance: PRESENT: well-developed, well-nourished Head exam: PRESENT: normocephalic Respiratory exam: PRESENT: unlabored Extremities exam: ABSENT: pedal edema Neurological exam: PRESENT: alert, awake Psychiatric exam: PRESENT: appropriate affect Skin exam: PRESENT: normal color Results Laboratory Results: 09/08/18 16:30 09/08/18 16:30 08/23/18 08/23/18 08/23/18 14:04 14:27 14:27 Creatine Kinase Cancelled 21 L Troponin I < 0.012 Impressions: Chest X-Ray 08/23/18 13:16 IMPRESSION: Findings worrisome for postobstructive pneumonia in the left upper lobe related to left hilar mass Abdomen/Pelvis CT 08/23/18 14:48 IMPRESSION: Malignant appearing left hilar mass with postobstructive collapse and consolidation left upper lobe. Bony metastatic lesions in the sternum and L5 vertebral body Malignant appearing Mediastinal and retroperitoneal lymph nodes. Multiple peritoneal implants without ascites. Chest CT 08/23/18 14:48 IMPRESSION: Malignant appearing left hilar mass with postobstructive collapse and consolidation left upper lobe. Bony metastatic lesions in the sternum and L5 vertebral body Malignant appearing Mediastinal and retroperitoneal lymph nodes. Multiple peritoneal implants without ascites. Head MRI 08/24/18 00:00 IMPRESSION: Innumerable enhancing lesions consistent with extensive metastatic disease to the infratentorial and supratentorial brain, as above. Mild associated mass effect. No midline shift. copyright 2010 [employer]- All Rights Reserved Assessment & Plan - Diagnosis (1) Lung mass Is this a current diagnosis for this admission?: Yes (2) Brain metastases Is this a current diagnosis for this admission?: Yes (3) Risk for falls Is this a current diagnosis for this admission?: Yes (4) Nausea Is this a current diagnosis for this admission?: Yes (5) Small cell lung cancer, left upper lobe Is this a current diagnosis for this admission?: Yes Plan: Plan for chemotherapy Cycle #1 Day #1 tomorrow. OK to transfer to rehab after completing this cycle of chemo (should be finished Thurs. afternoon). I will follow as outpatient for cycle #2. - Plan Summary Plan Summary: He will continue to work with physical therapy and will try to eat and drink plenty. He is looking forward to a [employer] today.
[2018-09-11] MEDS: METOPROLOL TARTRATE 25 MG TABLET PO SCH ×3 (09:16→21:46)
[2018-09-11] MEDS: ASPIRIN 81 MG TABLET, ENT COATED PO SCH (09:16)
[2018-09-11] MEDS: FAMOTIDINE 20 MG TABLET PO SCH ×3 (09:17→21:46)
[2018-09-11 10:55] LABS: ALANINE AMINOTRANSFERASE 36 U/L (21-72); ALBUMIN 2.4 g/dL (3.5-5.0); ALKALINE PHOSPHATASE 69 U/L (38-126); ASPARTATE AMINO TRANSFERASE 39 U/L (17-59); BILIRUBIN,DIRECT 0.4 mg/dL (0.0-0.4); BILIRUBIN,TOTAL 0.9 mg/dL (0.2-1.3); BLOOD UREA NITROGEN 10 mg/dL (7-20); CALCIUM 7.8 mg/dL (8.4-10.2); CARBON DIOXIDE 28 mmol/L (22-30); CHLORIDE 106 mmol/L (98-107); GLUCOSE 102 mg/dL (75-110); POTASSIUM 3.5 mmol/L (3.6-5.0); TOTAL PROTEIN 4.8 g/dL (6.3-8.2)
[2018-09-11 11:01] LABS: SODIUM 136.8 mmol/L (137-145)
[2018-09-11 11:05] LABS: ANION GAP 3 (5-19)
[2018-09-11 12:16] LABS: HEMATOCRIT 39.8 % (37.9-51.0); MEAN CORPUSCULAR HEMOGLOBIN 28.6 pg (27.0-33.4); MEAN CORPUSCULAR HGB CONC 33.7 g/dL (32.0-36.0); MEAN CORPUSCULAR VOLUME 85 fl (80-97); PLATELET COUNT 122 10^3/uL (150-450); RED BLOOD COUNT 4.68 10^6/uL (4.35-5.55); RED CELL DISTRIBUTION WIDTH 16.8 % (11.5-14.0); WHITE BLOOD COUNT 13.3 10^3/uL (4.0-10.5)
[2018-09-11 12:23] LABS: HEMOGLOBIN 13.4 g/dL (13.5-17.0)
[2018-09-11 12:24] LABS: ABSOLUTE LYMPHOCYTES# (MANUAL) 0.5 10^3/uL (0.5-4.7); ABSOLUTE MONOCYTES # (MANUAL) 0.5 10^3/uL (0.1-1.4); ABSOLUTE NEUTROPHILS# (MANUAL) 12.2 10^3/uL (1.7-8.2); ANISOCYTOSIS 1+; BASOPHILS % (MANUAL) 0 % (0-2); BURR CELLS 1+; EOSINOPHILS % (MANUAL) 0 % (0-6); LYMPHOCYTES % (MANUAL) 4 % (13-45); MONOCYTES % (MANUAL) 4 % (3-13); OVALOCYTES 1+; PLATELET COMMENT DECREASED; POIKILOCYTOSIS SLIGHT; SEGMENTED NEUTROPHILS % (MAN) 92 % (42-78); TOTAL CELLS COUNTED 100; TOXIC GRANULATION SLIGHT; TOXIC VACUOLATION PRESENT
[2018-09-11 14:08] LABS: PATH REVIEW PATHOLOGIST REVIEWED
[2018-09-11] MEDS: FUROSEMIDE 20 MG TABLET PO SCH (17:11)
--- NOTE | 2018-09-11 19:28 | PDOC PROGRESS REPORT ---
Subjective Progress Note for:: 09/11/18 Subjective:: No adverse events overnight. No new complaints. Vital signs been stable. He has not been eating very much and his family is concerned and they have been bringing him protein shakes and other snacks to encourage him to eat. He is not been nauseated, he just says he is not feeling hungry. 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 ABSENT: accessory muscle use, crackles, tachypnea, rhonchi, wheezes Cardiovascular exam: PRESENT: RRR, +S1, +S2 Vascular exam: PRESENT: normal capillary refill GI/Abdominal exam: PRESENT: normal bowel sounds, soft. ABSENT: distended, guarding, rebound, tenderness Extremities exam: ABSENT: clubbing, pedal edema Musculoskeletal exam: PRESENT: normal inspection. ABSENT: deformity Neurological exam: PRESENT: alert, awake, oriented to person, oriented to place, oriented to time Psychiatric exam: PRESENT: appropriate affect, normal mood Skin exam: PRESENT: dry, warm Results Laboratory Results: 09/11/18 11:50 09/11/18 10:24 09/11/18 09/11/18 09/11/18 10:24 10:24 11:50 WBC Cancelled 13.3 H RBC Cancelled 4.68 Hgb Cancelled 13.4 L D Hct Cancelled 39.8 MCV Cancelled 85 MCH Cancelled 28.6 MCHC Cancelled 33.7 RDW Cancelled 16.8 H Plt Count Cancelled 122 L Seg Neutrophils % Cancelled Not Reportable Lymphocytes % Cancelled Not Reportable Monocytes % Cancelled Not Reportable Eosinophils % Cancelled Not Reportable Basophils % Cancelled Not Reportable Absolute Neutrophils Cancelled Not Reportable Absolute Lymphocytes Cancelled Not Reportable Absolute Monocytes Cancelled Not Reportable Absolute Eosinophils Cancelled Not Reportable Absolute Basophils Cancelled Not Reportable Sodium 136.8 L Potassium 3.5 L Chloride 106 Carbon Dioxide 28 Anion Gap 3 L BUN 10 Creatinine 0.44 L Est GFR ( Amer) > 60 Est GFR (Non-Af Amer) > 60 Glucose 102 Calcium 7.8 L Total Bilirubin 0.9 AST 39 ALT 36 Alkaline Phosphatase 69 Total Protein 4.8 L Albumin 2.4 L 08/23/18 08/23/18 08/23/18 14:04 14:27 14:27 Creatine Kinase Cancelled 21 L Troponin I < 0.012 Impressions: Chest X-Ray 08/23/18 13:16 IMPRESSION: Findings worrisome for postobstructive pneumonia in the left upper lobe related to left hilar mass Abdomen/Pelvis CT 08/23/18 14:48 IMPRESSION: Malignant appearing left hilar mass with postobstructive collapse and consolidation left upper lobe. Bony metastatic lesions in the sternum and L5 vertebral body Malignant appearing Mediastinal and retroperitoneal lymph nodes. Multiple peritoneal implants without ascites. Chest CT 08/23/18 14:48 IMPRESSION: Malignant appearing left hilar mass with postobstructive collapse and consolidation left upper lobe. Bony metastatic lesions in the sternum and L5 vertebral body Malignant appearing Mediastinal and retroperitoneal lymph nodes. Multiple peritoneal implants without ascites. Head MRI 08/24/18 00:00 IMPRESSION: Innumerable enhancing lesions consistent with extensive metastatic disease to the infratentorial and supratentorial brain, as above. Mild associated mass effect. No midline shift. copyright 2011 [employer]- All Rights Reserved Assessment & Plan - Diagnosis (1) Widespread metastatic malignant neoplastic disease Is this a current diagnosis for this admission?: Yes Plan: Oncology thinks he is okay to start chemotherapy and they recommend keeping him here until they can start it on Tuesday. He will complete 3 days of chemotherapy and we will plan to get him out of here around Tuesday of next week to a long term facility. His appetite is been poor, and I would like to see if oncology thinks we should put him on some sort of appetite stimulant, and if so, which one they would prefer to use. (2) Type II diabetes mellitus Qualifiers: Diabetes mellitus oil heaterman insulin use: without [facility] use Diabetes mellitus complication status: with unspecified complications Qualified Code(s): E11.8 - Type 2 diabetes mellitus with unspecified complications Is this a current diagnosis for this admission?: Yes Plan: Well-controlled on his current regimen (3) Aspiration into respiratory tract Qualifiers: Encounter type: initial encounter Qualified Code(s): T17.908A - Unspecified foreign body in respiratory tract, part unspecified causing other injury, initial encounter Is this a current diagnosis for this admission?: Yes Plan: Resolved (4) Acute hypoxemic respiratory failure Is this a current diagnosis for this admission?: Yes Plan: Currently stable on 2 L nasal cannula, will wean as tolerated. His lungs are clear, he just does not take very deep breath right now. - Time Time Spent with patient: 15-24 minutes
[2018-09-11] MEDS: ATORVASTATIN CALCIUM 80 MG TABLET PO SCH ×2 (21:43→21:46)
[2018-09-12] MEDS: NORMAL SALINE 1000 ML 1,000 ML IV PRN (01:57)
[2018-09-12] MEDS ORDERED: NORMAL SALINE 1000 ML 1,000 ML IV PRN (05:00)
[2018-09-12] MEDS ORDERED: FOSAPREPITANT DIMEGLUMINE 150 MG in NORMAL SALINE 150 ML IV PRN (05:00)
[2018-09-12] MEDS ORDERED: CISPLATIN IV PRN ×2 (05:00→07:30)
[2018-09-12] MEDS ORDERED: NORMAL SALINE IV PRN ×3 (05:00→07:30)
[2018-09-12] MEDS ORDERED: FUROSEMIDE INJ/PF 40 MG/4 ML SDV IV PRN (05:00)
[2018-09-12] MEDS ORDERED: DEXAMETHASONE SOD PHOSPHATE 10 MG in NORMAL SALINE 50 ML IV PRN (05:00)
[2018-09-12] MEDS ORDERED: PALONOSETRON 0.25 MG/5 ML SDV IV PRN (05:00)
[2018-09-12] MEDS ORDERED: ETOPOSIDE IV PRN (05:00)
[2018-09-12] MEDS: HEPARIN SOD (PORCINE) 5,000 UNIT/ML 1 ML SYRINGE SUBCUT SCH ×3 (05:23→22:09)
--- NOTE | 2018-09-12 07:52 | PDOC PROGRESS REPORT ---
Subjective Progress Note for:: 09/12/18 Subjective:: Patient without complaints today. Enjoyed his hotdog yesterday. However, protein drinks made him nauseated. ROS: No dyspnea. Slept well. 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 Neurological exam: PRESENT: alert, awake Psychiatric exam: PRESENT: appropriate affect Skin exam: PRESENT: normal color Results Laboratory Results: 09/11/18 11:50 09/11/18 10:24 09/11/18 09/11/18 09/11/18 10:24 10:24 11:50 WBC Cancelled 13.3 H RBC Cancelled 4.68 Hgb Cancelled 13.4 L D Hct Cancelled 39.8 MCV Cancelled 85 MCH Cancelled 28.6 MCHC Cancelled 33.7 RDW Cancelled 16.8 H Plt Count Cancelled 122 L Seg Neutrophils % Cancelled Not Reportable Lymphocytes % Cancelled Not Reportable Monocytes % Cancelled Not Reportable Eosinophils % Cancelled Not Reportable Basophils % Cancelled Not Reportable Absolute Neutrophils Cancelled Not Reportable Absolute Lymphocytes Cancelled Not Reportable Absolute Monocytes Cancelled Not Reportable Absolute Eosinophils Cancelled Not Reportable Absolute Basophils Cancelled Not Reportable Sodium 136.8 L Potassium 3.5 L Chloride 106 Carbon Dioxide 28 Anion Gap 3 L BUN 10 Creatinine 0.44 L Est GFR ( Amer) > 60 Est GFR (Non-Af Amer) > 60 Glucose 102 Calcium 7.8 L Total Bilirubin 0.9 AST 39 ALT 36 Alkaline Phosphatase 69 Total Protein 4.8 L Albumin 2.4 L 08/23/18 08/23/18 08/23/18 14:04 14:27 14:27 Creatine Kinase Cancelled 21 L Troponin I < 0.012 Impressions: Chest X-Ray 08/23/18 13:16 IMPRESSION: Findings worrisome for postobstructive pneumonia in the left upper lobe related to left hilar mass Abdomen/Pelvis CT 08/23/18 14:48 IMPRESSION: Malignant appearing left hilar mass with postobstructive collapse and consolidation left upper lobe. Bony metastatic lesions in the sternum and L5 vertebral body Malignant appearing Mediastinal and retroperitoneal lymph nodes. Multiple peritoneal implants without ascites. Chest CT 08/23/18 14:48 IMPRESSION: Malignant appearing left hilar mass with postobstructive collapse and consolidation left upper lobe. Bony metastatic lesions in the sternum and L5 vertebral body Malignant appearing Mediastinal and retroperitoneal lymph nodes. Multiple peritoneal implants without ascites. Head MRI 08/24/18 00:00 IMPRESSION: Innumerable enhancing lesions consistent with extensive metastatic disease to the infratentorial and supratentorial brain, as above. Mild associated mass effect. No midline shift. copyright 2010 [employer]- All Rights Reserved Assessment & Plan - Diagnosis (1) Lung mass Is this a current diagnosis for this admission?: Yes (2) Brain metastases Is this a current diagnosis for this admission?: Yes Plan: Completed all radiation therapy. Steroid taper will finish in 3 days. (3) Risk for falls Is this a current diagnosis for this admission?: Yes (4) Nausea Is this a current diagnosis for this admission?: Yes (5) Small cell lung cancer, left upper lobe Is this a current diagnosis for this admission?: Yes Plan: I reviewed his labs. He is ready to start chemo today. I will add Ca and K replacement. Watch labs. - Plan Summary Plan Summary: Plan to transfer to inpatient rehab for further strength in 3 days.
[2018-09-12] MEDS: TAMSULOSIN HCL 0.4 MG CAP.SR.24H PO SCH (08:43)
[2018-09-12] MEDS: FAMOTIDINE 20 MG TABLET PO SCH ×2 (09:07→22:36)
[2018-09-12] MEDS: METFORMIN HCL 500 MG TABLET PO SCH ×2 (09:08→17:43)
[2018-09-12] MEDS: CALCIUM CARBONATE 250 MG/VITAMIN D3 125 UNIT TABLET PO SCH ×2 (09:08→17:46)
[2018-09-12] MEDS: METOPROLOL TARTRATE 25 MG TABLET PO SCH ×2 (09:08→22:36)
[2018-09-12] MEDS: ASPIRIN 81 MG TABLET, ENT COATED PO SCH (09:08)
[2018-09-12] MEDS: LISINOPRIL 5 MG TABLET PO SCH (09:08)
[2018-09-12] MEDS: INSULIN GLARGINE,HUM.REC.ANLOG 300 UNIT/3 ML INSULN.PEN SUBCUT SCH ×2 (09:09→22:32)
[2018-09-12] MEDS: POTASSI CL 20 MEQ/50 ML RIDER 20 MEQ/50 ML RTUPB IV SCH ×2 (09:09→11:39)
--- NOTE | 2018-09-12 18:37 | PDOC PROGRESS REPORT ---
Subjective Progress Note for:: 09/12/18 Subjective:: I seen patient resting in bed. He is awake and alert but somewhat sleepy and arousable. Except for nausea and vomiting which is chemo induced patient does not have new complaint. Patient has been started today with chemo for his lung cancer. He finished radiation to his brain. Patient is going to stay in the hospital until he is finished his chemotherapy in the coming 3-4 days and he will be transferred to rehab for short-term. 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 ABSENT: diastolic murmur, rubs, systolic murmur GI/Abdominal exam: PRESENT: normal bowel sounds, soft. ABSENT: distended, guarding, mass, organolmegaly, rebound, tenderness Neurological exam: PRESENT: alert, awake, oriented to time, oriented to situation Results Laboratory Results: 09/11/18 11:50 09/11/18 10:24 08/23/18 08/23/18 08/23/18 14:04 14:27 14:27 Creatine Kinase Cancelled 21 L Troponin I < 0.012 Impressions: Chest X-Ray 08/23/18 13:16 IMPRESSION: Findings worrisome for postobstructive pneumonia in the left upper lobe related to left hilar mass Abdomen/Pelvis CT 08/23/18 14:48 IMPRESSION: Malignant appearing left hilar mass with postobstructive collapse and consolidation left upper lobe. Bony metastatic lesions in the sternum and L5 vertebral body Malignant appearing Mediastinal and retroperitoneal lymph nodes. Multiple peritoneal implants without ascites. Chest CT 08/23/18 14:48 IMPRESSION: Malignant appearing left hilar mass with postobstructive collapse and consolidation left upper lobe. Bony metastatic lesions in the sternum and L5 vertebral body Malignant appearing Mediastinal and retroperitoneal lymph nodes. Multiple peritoneal implants without ascites. Head MRI 08/24/18 00:00 IMPRESSION: Innumerable enhancing lesions consistent with extensive metastatic disease to the infratentorial and supratentorial brain, as above. Mild associated mass effect. No midline shift. copyright 2010 [employer]- All Rights Reserved Assessment & Plan - Diagnosis (1) Small cell lung cancer, left upper lobe Is this a current diagnosis for this admission?: Yes Plan: Patient started on chemotherapy today. (2) Diffuse brain metastasis Is this a current diagnosis for this admission?: Yes Plan: Patient finished radiation to his brain. (3) Type II diabetes mellitus Qualifiers: Diabetes mellitus correction insulin use: without medical terminologist use Diabetes mellitus complication status: with unspecified complications Qualified Code(s): E11.8 - Type 2 diabetes mellitus with unspecified complications Is this a current diagnosis for this admission?: Yes Plan: To new current regimen (4) Hypertension Qualifiers: Hypertension type: essential hypertension Qualified Code(s): I10 - Essential (primary) hypertension Is this a current diagnosis for this admission?: Yes Plan: Continue current regimen (5) Hyperlipidemia Is this a current diagnosis for this admission?: Yes Plan: Continue home med
[2018-09-12] MEDS: ATORVASTATIN CALCIUM 80 MG TABLET PO SCH (22:36)
[2018-09-13] MEDS ORDERED: NORMAL SALINE IV PRN (05:00)
[2018-09-13] MEDS ORDERED: NORMAL SALINE 250 ML IV PRN (05:00)
[2018-09-13] MEDS ORDERED: DEXAMETHASONE SOD PHOSPHATE 10 MG in NORMAL SALINE 50 ML IV PRN (05:00)
[2018-09-13] MEDS ORDERED: ETOPOSIDE IV PRN (05:00)
[2018-09-13] MEDS: HEPARIN SOD (PORCINE) 5,000 UNIT/ML 1 ML SYRINGE SUBCUT SCH ×3 (05:16→22:57)
--- NOTE | 2018-09-13 07:46 | PDOC PROGRESS REPORT ---
Subjective Progress Note for:: 09/13/18 Subjective:: Patient feeling well today. No new complaints. He states that chemo went better than he thought yesterday. ROS: No nausea. No pain. Trying to stand and walk. 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 ABSENT: tenderness Gentrourinary exam: PRESENT: other - Condom catheter in place. Extremities exam: PRESENT: +1 edema Neurological exam: PRESENT: alert, awake Psychiatric exam: PRESENT: appropriate affect Skin exam: PRESENT: normal color Results Laboratory Results: 09/11/18 11:50 09/11/18 10:24 08/23/18 08/23/18 08/23/18 14:04 14:27 14:27 Creatine Kinase Cancelled 21 L Troponin I < 0.012 Impressions: Chest X-Ray 08/23/18 13:16 IMPRESSION: Findings worrisome for postobstructive pneumonia in the left upper lobe related to left hilar mass Abdomen/Pelvis CT 08/23/18 14:48 IMPRESSION: Malignant appearing left hilar mass with postobstructive collapse and consolidation left upper lobe. Bony metastatic lesions in the sternum and L5 vertebral body Malignant appearing Mediastinal and retroperitoneal lymph nodes. Multiple peritoneal implants without ascites. Chest CT 08/23/18 14:48 IMPRESSION: Malignant appearing left hilar mass with postobstructive collapse and consolidation left upper lobe. Bony metastatic lesions in the sternum and L5 vertebral body Malignant appearing Mediastinal and retroperitoneal lymph nodes. Multiple peritoneal implants without ascites. Head MRI 08/24/18 00:00 IMPRESSION: Innumerable enhancing lesions consistent with extensive metastatic disease to the infratentorial and supratentorial brain, as above. Mild associated mass effect. No midline shift. copyright 2010 [employer]- All Rights Reserved Assessment & Plan - Diagnosis (1) Lung mass Is this a current diagnosis for this admission?: Yes (2) Brain metastases Is this a current diagnosis for this admission?: Yes (3) Risk for falls Is this a current diagnosis for this admission?: Yes (4) Nausea Is this a current diagnosis for this admission?: Yes (5) Small cell lung cancer, left upper lobe Is this a current diagnosis for this admission?: Yes Plan: He completed his whole brain radiation therapy. Today is Cycle #1 Day #2 of cisplatin/Etoposide. He will finish with this cycle tomorrow. Plans are to transfer to rehab to increase strength after this chemo completes tomorrow. He understands that he needs to eat and drink and increase his strength. He has PRN antiemetics ordered.
[2018-09-13] MEDS: TAMSULOSIN HCL 0.4 MG CAP.SR.24H PO SCH (08:14)
[2018-09-13] MEDS: LISINOPRIL 5 MG TABLET PO SCH (08:14)
[2018-09-13] MEDS: METFORMIN HCL 500 MG TABLET PO SCH ×2 (08:16→17:24)
[2018-09-13] MEDS: FAMOTIDINE 20 MG TABLET PO SCH ×2 (11:36→22:55)
[2018-09-13] MEDS: METOPROLOL TARTRATE 25 MG TABLET PO SCH ×2 (11:37→22:54)
[2018-09-13] MEDS: CALCIUM CARBONATE 250 MG/VITAMIN D3 125 UNIT TABLET PO SCH ×2 (11:37→17:24)
[2018-09-13] MEDS: ASPIRIN 81 MG TABLET, ENT COATED PO SCH (11:38)
[2018-09-13] MEDS: INSULIN GLARGINE,HUM.REC.ANLOG 300 UNIT/3 ML INSULN.PEN SUBCUT SCH ×2 (11:39→22:56)
--- NOTE | 2018-09-13 18:34 | PDOC PROGRESS REPORT ---
Subjective Progress Note for:: 09/13/18 Subjective:: I seen patient resting in bed comfortably. He claims his nausea subsided. He ate food brought for him outside by his family. 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 ABSENT: rales, rhonchi, wheezes Cardiovascular exam: PRESENT: RRR. ABSENT: diastolic murmur, rubs, systolic murmur Neurological exam: PRESENT: alert, altered Results Laboratory Results: 09/11/18 11:50 09/11/18 10:24 08/23/18 08/23/18 08/23/18 14:04 14:27 14:27 Creatine Kinase Cancelled 21 L Troponin I < 0.012 Impressions: Chest X-Ray 08/23/18 13:16 IMPRESSION: Findings worrisome for postobstructive pneumonia in the left upper lobe related to left hilar mass Abdomen/Pelvis CT 08/23/18 14:48 IMPRESSION: Malignant appearing left hilar mass with postobstructive collapse and consolidation left upper lobe. Bony metastatic lesions in the sternum and L5 vertebral body Malignant appearing Mediastinal and retroperitoneal lymph nodes. Multiple peritoneal implants without ascites. Chest CT 08/23/18 14:48 IMPRESSION: Malignant appearing left hilar mass with postobstructive collapse and consolidation left upper lobe. Bony metastatic lesions in the sternum and L5 vertebral body Malignant appearing Mediastinal and retroperitoneal lymph nodes. Multiple peritoneal implants without ascites. Head MRI 08/24/18 00:00 IMPRESSION: Innumerable enhancing lesions consistent with extensive metastatic disease to the infratentorial and supratentorial brain, as above. Mild associated mass effect. No midline shift. copyright 2010 [employer]- All Rights Reserved Assessment & Plan - Diagnosis (1) Small cell lung cancer, left upper lobe Is this a current diagnosis for this admission?: Yes Plan: Patient started on chemotherapy today. (2) Diffuse brain metastasis Is this a current diagnosis for this admission?: Yes Plan: Patient finished radiation to his brain. (3) Type II diabetes mellitus Qualifiers: Diabetes mellitus director of health education insulin use: without group home use Diabetes mellitus complication status: with unspecified complications Qualified Code(s): E11.8 - Type 2 diabetes mellitus with unspecified complications Is this a current diagnosis for this admission?: Yes Plan: To new current regimen (4) Hypertension Qualifiers: Hypertension type: essential hypertension Qualified Code(s): I10 - Essential (primary) hypertension Is this a current diagnosis for this admission?: Yes Plan: Continue current regimen (5) Hyperlipidemia Is this a current diagnosis for this admission?: Yes Plan: Continue home med
--- NOTE | 2018-09-13 18:36 | PDOC PROGRESS REPORT ---
Subjective Subjective:: No new complaint. Her kidney function is currently at its baseline. 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 ABSENT: diastolic murmur, rubs, systolic murmur GI/Abdominal exam: PRESENT: normal bowel sounds, soft. ABSENT: distended, guarding, mass, organolmegaly, rebound, tenderness Results Laboratory Results: 09/11/18 11:50 09/11/18 10:24 08/23/18 08/23/18 08/23/18 14:04 14:27 14:27 Creatine Kinase Cancelled 21 L Troponin I < 0.012 Impressions: Chest X-Ray 08/23/18 13:16 IMPRESSION: Findings worrisome for postobstructive pneumonia in the left upper lobe related to left hilar mass Abdomen/Pelvis CT 08/23/18 14:48 IMPRESSION: Malignant appearing left hilar mass with postobstructive collapse and consolidation left upper lobe. Bony metastatic lesions in the sternum and L5 vertebral body Malignant appearing Mediastinal and retroperitoneal lymph nodes. Multiple peritoneal implants without ascites. Chest CT 08/23/18 14:48 IMPRESSION: Malignant appearing left hilar mass with postobstructive collapse and consolidation left upper lobe. Bony metastatic lesions in the sternum and L5 vertebral body Malignant appearing Mediastinal and retroperitoneal lymph nodes. Multiple peritoneal implants without ascites. Head MRI 08/24/18 00:00 IMPRESSION: Innumerable enhancing lesions consistent with extensive metastatic disease to the infratentorial and supratentorial brain, as above. Mild associated mass effect. No midline shift. copyright 2011 [employer]- All Rights Reserved Assessment & Plan - Diagnosis (1) Small cell lung cancer, left upper lobe Is this a current diagnosis for this admission?: Yes Plan: Patient started on chemotherapy today. (2) Diffuse brain metastasis Is this a current diagnosis for this admission?: Yes Plan: Patient finished radiation to his brain. (3) Type II diabetes mellitus Qualifiers: Diabetes mellitus longwall foreman insulin use: without longwall foreman use Diabetes mellitus complication status: with unspecified complications Qualified Code(s): E11.8 - Type 2 diabetes mellitus with unspecified complications Is this a current diagnosis for this admission?: Yes Plan: To new current regimen (4) Hypertension Qualifiers: Hypertension type: essential hypertension Qualified Code(s): I10 - Essential (primary) hypertension Is this a current diagnosis for this admission?: Yes Plan: Continue current regimen (5) Hyperlipidemia Is this a current diagnosis for this admission?: Yes Plan: Continue home med
[2018-09-13] MEDS: NORMAL SALINE 1000 ML 1,000 ML IV PRN (22:53)
[2018-09-13] MEDS: ATORVASTATIN CALCIUM 80 MG TABLET PO SCH (22:54)
[2018-09-14] MEDS ORDERED: ETOPOSIDE IV PRN (05:00)
[2018-09-14] MEDS ORDERED: DEXAMETHASONE SOD PHOSPHATE 10 MG in NORMAL SALINE 50 ML IV PRN (05:00)
[2018-09-14] MEDS ORDERED: NORMAL SALINE IV PRN (05:00)
[2018-09-14] MEDS ORDERED: NORMAL SALINE 250 ML IV PRN (05:00)
[2018-09-14] MEDS: HEPARIN SOD (PORCINE) 5,000 UNIT/ML 1 ML SYRINGE SUBCUT SCH ×3 (05:21→21:45)
[2018-09-14 05:44] LABS: ABSOLUTE LYMPHOCYTES (AUTO) 0.6 10^3/uL (0.5-4.7); ABSOLUTE MONOCYTES (AUTO) 0.2 10^3/uL (0.1-1.4); ABSOLUTE NEUT (AUTO) 6.4 10^3/uL (1.7-8.2); BASOPHILS % (AUTO) 0.4 % (0-2); HEMATOCRIT 33.4 % (37.9-51.0); HEMOGLOBIN 11.5 g/dL (13.5-17.0); LYMPHOCYTES % (AUTO) 7.7 % (13-45); MEAN CORPUSCULAR HEMOGLOBIN 29.3 pg (27.0-33.4); MEAN CORPUSCULAR HGB CONC 34.5 g/dL (32.0-36.0); MEAN CORPUSCULAR VOLUME 85 fl (80-97); MONOCYTES % (AUTO) 3.3 % (3-13); PLATELET COUNT 135 10^3/uL (150-450); RED BLOOD COUNT 3.92 10^6/uL (4.35-5.55); RED CELL DISTRIBUTION WIDTH 17.4 % (11.5-14.0); SEGMENTED NEUTROPHILS % (AUTO) 88.6 % (42-78); TOTAL CELLS COUNTED % (AUTO) 100 %; WHITE BLOOD COUNT 7.2 10^3/uL (4.0-10.5)
[2018-09-14 06:10] LABS: ALANINE AMINOTRANSFERASE 29 U/L (21-72); ALBUMIN 2.1 g/dL (3.5-5.0); ALKALINE PHOSPHATASE 69 U/L (38-126); ASPARTATE AMINO TRANSFERASE 55 U/L (17-59); BILIRUBIN,DIRECT 0.4 mg/dL (0.0-0.4); BILIRUBIN,TOTAL 0.6 mg/dL (0.2-1.3); BLOOD UREA NITROGEN 17 mg/dL (7-20); CALCIUM 7.6 mg/dL (8.4-10.2); CARBON DIOXIDE 28 mmol/L (22-30); CHLORIDE 110 mmol/L (98-107); GLUCOSE 155 mg/dL (75-110); POTASSIUM 3.7 mmol/L (3.6-5.0); SODIUM 138.4 mmol/L (137-145); TOTAL PROTEIN 4.4 g/dL (6.3-8.2)
[2018-09-14 06:19] LABS: ANION GAP 2 (5-19)
--- NOTE | 2018-09-14 08:22 | PDOC PROGRESS REPORT ---
Subjective Progress Note for:: 09/14/18 Subjective:: Patient without new problems. States that he is doing well and ready for rehab to get stronger. 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 ABSENT: tenderness Extremities exam: PRESENT: +1 edema Neurological exam: PRESENT: alert, awake Psychiatric exam: PRESENT: appropriate affect Skin exam: PRESENT: normal color Results Laboratory Results: 09/14/18 04:55 09/14/18 04:55 09/14/18 09/14/18 04:55 04:55 WBC 7.2 RBC 3.92 L Hgb 11.5 L Hct 33.4 L MCV 85 MCH 29.3 MCHC 34.5 RDW 17.4 H Plt Count 135 L Seg Neutrophils % 88.6 H Lymphocytes % 7.7 L Monocytes % 3.3 Eosinophils % 0.0 Basophils % 0.4 Absolute Neutrophils 6.4 Absolute Lymphocytes 0.6 Absolute Monocytes 0.2 Absolute Eosinophils 0.0 Absolute Basophils 0.0 Sodium 138.4 Potassium 3.7 Chloride 110 H Carbon Dioxide 28 Anion Gap 2 L BUN 17 Creatinine 0.48 L Est GFR ( Amer) > 60 Est GFR (Non-Af Amer) > 60 Glucose 155 H Calcium 7.6 L Total Bilirubin 0.6 AST 55 ALT 29 Alkaline Phosphatase 69 Total Protein 4.4 L Albumin 2.1 L 08/23/18 08/23/18 08/23/18 14:04 14:27 14:27 Creatine Kinase Cancelled 21 L Troponin I < 0.012 Impressions: Chest X-Ray 08/23/18 13:16 IMPRESSION: Findings worrisome for postobstructive pneumonia in the left upper lobe related to left hilar mass Abdomen/Pelvis CT 08/23/18 14:48 IMPRESSION: Malignant appearing left hilar mass with postobstructive collapse and consolidation left upper lobe. Bony metastatic lesions in the sternum and L5 vertebral body Malignant appearing Mediastinal and retroperitoneal lymph nodes. Multiple peritoneal implants without ascites. Chest CT 08/23/18 14:48 IMPRESSION: Malignant appearing left hilar mass with postobstructive collapse and consolidation left upper lobe. Bony metastatic lesions in the sternum and L5 vertebral body Malignant appearing Mediastinal and retroperitoneal lymph nodes. Multiple peritoneal implants without ascites. Head MRI 08/24/18 00:00 IMPRESSION: Innumerable enhancing lesions consistent with extensive metastatic disease to the infratentorial and supratentorial brain, as above. Mild associated mass effect. No midline shift. copyright 2011 [email or web address]- All Rights Reserved Assessment & Plan - Diagnosis (1) Lung mass Is this a current diagnosis for this admission?: Yes (2) Brain metastases Is this a current diagnosis for this admission?: Yes (3) Risk for falls Is this a current diagnosis for this admission?: Yes (4) Nausea Is this a current diagnosis for this admission?: Yes (5) Small cell lung cancer, left upper lobe Is this a current diagnosis for this admission?: Yes Plan: Cycle 1 Day 3 of chemo today. Ready to transfer to rehab tomorrow. I will arrange follow-up in my office for cycle #2 in about 4 weeks.
[2018-09-14] MEDS: DRONABINOL 2.5 MG CAPSULE PO PRN ×2 (08:45→15:35)
[2018-09-14] MEDS: TAMSULOSIN HCL 0.4 MG CAP.SR.24H PO SCH (08:45)
[2018-09-14] MEDS: LISINOPRIL 5 MG TABLET PO SCH (08:45)
[2018-09-14] MEDS: METFORMIN HCL 500 MG TABLET PO SCH ×2 (08:45→17:22)
[2018-09-14] MEDS: NORMAL SALINE 1000 ML 1,000 ML IV PRN ×2 (08:52→17:22)
[2018-09-14] MEDS: METOPROLOL TARTRATE 25 MG TABLET PO SCH ×2 (11:29→21:43)
[2018-09-14] MEDS: INSULIN GLARGINE,HUM.REC.ANLOG 300 UNIT/3 ML INSULN.PEN SUBCUT SCH ×2 (11:29→21:44)
[2018-09-14] MEDS: CALCIUM CARBONATE 250 MG/VITAMIN D3 125 UNIT TABLET PO SCH ×2 (11:29→17:22)
[2018-09-14] MEDS: FAMOTIDINE 20 MG TABLET PO SCH ×2 (11:30→21:43)
--- NOTE | 2018-09-14 13:52 | PDOC TRANSFER SUMMARY ---
General - Admit/Disc Date/PCP Admission Date/Primary Care Provider: 08/23/18 17:59 ANA GREEN NP Discharge Date: 09/14/18 - Discharge Diagnosis (1) Small cell lung cancer, left upper lobe Is this a current diagnosis for this admission?: Yes (2) Diffuse brain metastasis Is this a current diagnosis for this admission?: Yes (3) Type II diabetes mellitus Is this a current diagnosis for this admission?: Yes (4) Hypertension Is this a current diagnosis for this admission?: Yes (5) Hyperlipidemia Is this a current diagnosis for this admission?: Yes - Additional Information Resuscitation Status: Do Not Resuscitate Home Medications: Aspirin [Ecotrin 81 mg EC Tablet] 81 mg PO DAILY 08/23/18 Atorvastatin Calcium [Lipitor 80 mg Tablet] 80 mg PO QHS 08/23/18 Furosemide [Lasix 20 mg Tablet] 20 mg PO QPM 08/23/18 Lisinopril [Prinivil 2.5 mg Tablet] 2.5 mg PO QAM 08/23/18 Metformin HCl [Glucophage 500 mg Tablet] 500 mg PO BID 08/23/18 Metoprolol Tartrate [Lopressor 25 mg Tablet] 6.25 mg PO Q12 08/23/18 Tamsulosin HCl [Flomax] 0.4 mg PO QAM 08/23/18 History of Present Illness Admission Date/PCP: 08/23/18 17:59 ANA GREEN NP History of Present Illness: ELIAS GRIFFIN is a 73 year old male who comes in with a roughly 4-week history of decreased appetite and general malaise. He feels like he has lost a little bit of weight in that time but is not sure how much. His energy level has decreased and his exercise capacity has diminished. He is not had any cough, fever, or chills. He has had no other symptoms. He has not had any change in his bowel or bladder habits. Generally his oral intake is diminished. In the course of his ER workup it was determined that he had what looks like a large left hilar mass, diffuse adenopathy, and retroperitoneal and bony implants. He is being admitted for further assessment. Hospital Course Hospital Course: This is a very pleasant unfortunate 73 years old male patient presented with chief complaint of generalized weakness, difficulty walking and decreased appetite. Patient is found to have stage IV small cell lung cancer with distant metastasis to the brain. Patient had finished radiation to his brain and he got the last dose of his chemo. I seen patient resting in bed comfortably. He is awake alert oriented. She is not in pain or any form of acute cardiorespiratory distress. Since patient is debilitated and deconditioned he is going to be transferred to [place] halfway facility for recuperation. His vital signs and blood works are within normal limits. Patient is stable enough to be discharged today. I will continue all his home medications. Physical Exam Vital Signs: Temp Pulse Resp BP Pulse Ox 98.3 F 77 20 130/75 H 99 09/14/18 10:57 09/14/18 10:57 09/14/18 10:57 09/14/18 10:57 09/14/18 10:57 Intake & Output 09/13/18 09/14/18 09/15/18 06:59 06:59 06:59 Intake Total 4296.6 1546.6 998 Output Total 180 950 Balance 4116.6 596.6 998 Weight 56.1 kg General appearance: PRESENT: no acute distress, well-developed, well-nourished Head exam: PRESENT: atraumatic, normocephalic Eye exam: PRESENT: conjunctiva pink, EOMI, PERRLA. ABSENT: scleral icterus Ear exam: PRESENT: normal external ear exam Mouth exam: PRESENT: moist, tongue midline Neck exam: ABSENT: carotid bruit, JVD, lymphadenopathy, thyromegaly Respiratory exam: PRESENT: clear to auscultation clare. ABSENT: rales, rhonchi, wheezes Cardiovascular exam: PRESENT: RRR. ABSENT: diastolic murmur, rubs, systolic murmur Pulses: PRESENT: normal dorsalis pedis pul Vascular exam: PRESENT: normal capillary refill GI/Abdominal exam: PRESENT: normal bowel sounds, soft. ABSENT: distended, guarding, mass, organolmegaly, rebound, tenderness Rectal exam: PRESENT: deferred Extremities exam: PRESENT: full ROM. ABSENT: calf tenderness, clubbing, pedal edema Neurological exam: PRESENT: alert, awake, oriented to person, oriented to place, oriented to time, oriented to situation, CN II-XII grossly intact. ABSENT: motor sensory deficit Psychiatric exam: PRESENT: appropriate affect, normal mood. ABSENT: homicidal ideation, suicidal ideation Skin exam: PRESENT: dry, intact, warm. ABSENT: cyanosis, rash Results Laboratory Results: 09/14/18 04:55 09/14/18 04:55 09/14/18 09/14/18 04:55 04:55 WBC 7.2 RBC 3.92 L Hgb 11.5 L Hct 33.4 L MCV 85 MCH 29.3 MCHC 34.5 RDW 17.4 H Plt Count 135 L Seg Neutrophils % 88.6 H Lymphocytes % 7.7 L Monocytes % 3.3 Eosinophils % 0.0 Basophils % 0.4 Absolute Neutrophils 6.4 Absolute Lymphocytes 0.6 Absolute Monocytes 0.2 Absolute Eosinophils 0.0 Absolute Basophils 0.0 Sodium 138.4 Potassium 3.7 Chloride 110 H Carbon Dioxide 28 Anion Gap 2 L BUN 17 Creatinine 0.48 L Est GFR ( Amer) > 60 Est GFR (Non-Af Amer) > 60 Glucose 155 H Calcium 7.6 L Total Bilirubin 0.6 AST 55 ALT 29 Alkaline Phosphatase 69 Total Protein 4.4 L Albumin 2.1 L 08/23/18 08/23/18 08/23/18 14:04 14:27 14:27 Creatine Kinase Cancelled 21 L Troponin I < 0.012 Impressions: Chest X-Ray 08/23/18 13:16 IMPRESSION: Findings worrisome for postobstructive pneumonia in the left upper lobe related to left hilar mass Abdomen/Pelvis CT 08/23/18 14:48 IMPRESSION: Malignant appearing left hilar mass with postobstructive collapse and consolidation left upper lobe. Bony metastatic lesions in the sternum and L5 vertebral body Malignant appearing Mediastinal and retroperitoneal lymph nodes. Multiple peritoneal implants without ascites. Chest CT 08/23/18 14:48 IMPRESSION: Malignant appearing left hilar mass with postobstructive collapse and consolidation left upper lobe. Bony metastatic lesions in the sternum and L5 vertebral body Malignant appearing Mediastinal and retroperitoneal lymph nodes. Multiple peritoneal implants without ascites. Head MRI 08/24/18 00:00 IMPRESSION: Innumerable enhancing lesions consistent with extensive metastatic disease to the infratentorial and supratentorial brain, as above. Mild associated mass effect. No midline shift. copyright 2010 [employer]- All Rights Reserved Qualifiers - * PATIENT BEING DISCHARGED WITH ANY OF THE FOLLOWING DIAGNOSIS: No
[2018-09-14] MEDS: ATORVASTATIN CALCIUM 80 MG TABLET PO SCH (21:43)
[2018-09-15] MEDS: DRONABINOL 2.5 MG CAPSULE PO PRN ×2 (03:04→13:26)
[2018-09-15] MEDS: NORMAL SALINE 1000 ML 1,000 ML IV PRN (03:35)
[2018-09-15] MEDS: HEPARIN SOD (PORCINE) 5,000 UNIT/ML 1 ML SYRINGE SUBCUT SCH ×3 (05:02→23:22)
[2018-09-15] MEDS: ONDANSETRON HCL 8 MG TABLET PO PRN (08:32)
[2018-09-15] MEDS: METOPROLOL TARTRATE 25 MG TABLET PO SCH ×2 (09:01→23:23)
[2018-09-15] MEDS: CALCIUM CARBONATE 250 MG/VITAMIN D3 125 UNIT TABLET PO SCH ×2 (09:02→17:10)
[2018-09-15] MEDS: LISINOPRIL 5 MG TABLET PO SCH (09:02)
[2018-09-15] MEDS: INSULIN GLARGINE,HUM.REC.ANLOG 300 UNIT/3 ML INSULN.PEN SUBCUT SCH ×2 (09:02→23:26)
[2018-09-15] MEDS: FAMOTIDINE 20 MG TABLET PO SCH ×2 (09:02→23:23)
[2018-09-15] MEDS: TAMSULOSIN HCL 0.4 MG CAP.SR.24H PO SCH (09:02)
[2018-09-15] MEDS: METFORMIN HCL 500 MG TABLET PO SCH ×2 (09:02→17:11)
--- NOTE | 2018-09-15 19:46 | Progress Note ---
Provider Note Provider Note: Went on rounds on the floor and asked by nursing to see patient since he was not discharged yesterday. According to our chart patient was discharged by physician yesterday to rehab. But his discharge was held up due to some problem with physical therapy and discharge planning. I briefly saw patient and family and spoke to them briefly about them going to rehab center today. As I understand he will be leaving for short-term rehab today. He was still on IV fluid hence I told nursing to stop it since he cannot have IV fluids at the rehab center. Did not fully examined patient at this time noted I evaluate patient [place]. I will not charge the patient for today's bill as patient was already discharged from our service yesterday
[2018-09-15] MEDS: ATORVASTATIN CALCIUM 80 MG TABLET PO SCH (23:23)
[2018-09-16] MEDS: HEPARIN SOD (PORCINE) 5,000 UNIT/ML 1 ML SYRINGE SUBCUT SCH ×3 (06:44→22:25)
[2018-09-16] MEDS: INSULIN GLARGINE,HUM.REC.ANLOG 300 UNIT/3 ML INSULN.PEN SUBCUT SCH ×2 (09:50→21:54)
[2018-09-16] MEDS: CALCIUM CARBONATE 250 MG/VITAMIN D3 125 UNIT TABLET PO SCH ×2 (09:54→17:47)
[2018-09-16] MEDS: DRONABINOL 2.5 MG CAPSULE PO PRN (09:54)
[2018-09-16] MEDS: METOPROLOL TARTRATE 25 MG TABLET PO SCH ×3 (09:54→21:53)
[2018-09-16] MEDS: LISINOPRIL 5 MG TABLET PO SCH ×2 (09:55→10:07)
[2018-09-16] MEDS: TAMSULOSIN HCL 0.4 MG CAP.SR.24H PO SCH ×2 (09:55→10:07)
[2018-09-16] MEDS: FAMOTIDINE 20 MG TABLET PO SCH ×2 (09:55→21:54)
[2018-09-16] MEDS: METFORMIN HCL 500 MG TABLET PO SCH ×2 (09:55→17:47)
--- NOTE | 2018-09-16 12:02 | PDOC PROGRESS REPORT ---
Subjective Progress Note for:: 09/16/18 Subjective:: Was able to eat some yesterday, awaiting rehab placement, seems to be tolerating chemo well so far. 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 ABSENT: scleral icterus Ear exam: PRESENT: normal external ear exam Mouth exam: PRESENT: moist, tongue midline Neck exam: ABSENT: carotid bruit, JVD, lymphadenopathy, thyromegaly Respiratory exam: PRESENT: clear to auscultation clare. ABSENT: rales, rhonchi, wheezes Cardiovascular exam: PRESENT: RRR. ABSENT: diastolic murmur, rubs, systolic murmur Pulses: PRESENT: normal dorsalis pedis pul Vascular exam: PRESENT: normal capillary refill GI/Abdominal exam: PRESENT: normal bowel sounds, soft. ABSENT: distended, guarding, mass, organolmegaly, rebound, tenderness Rectal exam: PRESENT: deferred Extremities exam: PRESENT: full ROM. ABSENT: calf tenderness, clubbing, pedal edema Neurological exam: PRESENT: alert, awake, oriented to person, oriented to place, oriented to time, oriented to situation, CN II-XII grossly intact. ABSENT: motor sensory deficit Psychiatric exam: PRESENT: appropriate affect, normal mood. ABSENT: homicidal ideation, suicidal ideation Skin exam: PRESENT: dry, intact, warm. ABSENT: cyanosis, rash Results Laboratory Results: 09/14/18 04:55 09/14/18 04:55 08/23/18 08/23/18 08/23/18 14:04 14:27 14:27 Creatine Kinase Cancelled 21 L Troponin I < 0.012 Impressions: Chest X-Ray 08/23/18 13:16 IMPRESSION: Findings worrisome for postobstructive pneumonia in the left upper lobe related to left hilar mass Abdomen/Pelvis CT 08/23/18 14:48 IMPRESSION: Malignant appearing left hilar mass with postobstructive collapse and consolidation left upper lobe. Bony metastatic lesions in the sternum and L5 vertebral body Malignant appearing Mediastinal and retroperitoneal lymph nodes. Multiple peritoneal implants without ascites. Chest CT 08/23/18 14:48 IMPRESSION: Malignant appearing left hilar mass with postobstructive collapse and consolidation left upper lobe. Bony metastatic lesions in the sternum and L5 vertebral body Malignant appearing Mediastinal and retroperitoneal lymph nodes. Multiple peritoneal implants without ascites. Head MRI 08/24/18 00:00 IMPRESSION: Innumerable enhancing lesions consistent with extensive metastatic disease to the infratentorial and supratentorial brain, as above. Mild associated mass effect. No midline shift. copyright 2010 [employer]- All Rights Reserved Assessment & Plan - Diagnosis (1) Small cell lung cancer, left upper lobe Is this a current diagnosis for this admission?: Yes Plan: s/p cycle #1, will have f/u w/ us in 2-3 wk, cont to follow while inpt - Time Time Spent with patient: 25-34 minutes Anticipated discharge: SNF, Acute Rehab Within: when bed available - Inpatient Certification Based on my medical assessment, after consideration of the patient's comorbidities, presenting symptoms, or acuity I expect that the services needed warrant INPATIENT care.: Yes I certify that my determination is in accordance with my understanding of [employer] 's requirements for reasonable and necessary INPATIENT services [42 CFR 412.3e].: Yes Medical Necessity: Risk of Complication if Not Cared For in Hospital
[2018-09-16] MEDS: ONDANSETRON HCL 8 MG TABLET PO PRN (13:24)
--- NOTE | 2018-09-16 17:30 | PDOC PROGRESS REPORT ---
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 ABSENT: conjunctival injection, scleral icterus Ear exam: PRESENT: normal external ear exam Mouth exam: ABSENT: tongue midline Neck exam: ABSENT: tracheal deviation Respiratory exam: PRESENT: clear to auscultation clare, symmetrical Cardiovascular exam: PRESENT: +S1, +S2 Pulses: PRESENT: +1 pedal pulses bilateral GI/Abdominal exam: PRESENT: normal bowel sounds, soft. ABSENT: tenderness Extremities exam: PRESENT: other - anasarca-edematous of the abdomen, thighs and LE. but better today than yesterday Neurological exam: PRESENT: alert, awake, oriented to person, oriented to place, oriented to time, oriented to situation, CN II-XII grossly intact Skin exam: PRESENT: dry, warm Results Laboratory Results: 09/14/18 04:55 09/14/18 04:55 08/23/18 08/23/18 08/23/18 14:04 14:27 14:27 Creatine Kinase Cancelled 21 L Troponin I < 0.012 Impressions: Chest X-Ray 08/23/18 13:16 IMPRESSION: Findings worrisome for postobstructive pneumonia in the left upper lobe related to left hilar mass Abdomen/Pelvis CT 08/23/18 14:48 IMPRESSION: Malignant appearing left hilar mass with postobstructive collapse and consolidation left upper lobe. Bony metastatic lesions in the sternum and L5 vertebral body Malignant appearing Mediastinal and retroperitoneal lymph nodes. Multiple peritoneal implants without ascites. Chest CT 08/23/18 14:48 IMPRESSION: Malignant appearing left hilar mass with postobstructive collapse and consolidation left upper lobe. Bony metastatic lesions in the sternum and L5 vertebral body Malignant appearing Mediastinal and retroperitoneal lymph nodes. Multiple peritoneal implants without ascites. Head MRI 08/24/18 00:00 IMPRESSION: Innumerable enhancing lesions consistent with extensive metastatic disease to the infratentorial and supratentorial brain, as above. Mild associated mass effect. No midline shift. copyright 2010 [employer]- All Rights Reserved Assessment & Plan - Diagnosis (1) Acute hypoxemic respiratory failure Is this a current diagnosis for this admission?: Yes (2) Brain metastases Is this a current diagnosis for this admission?: Yes (3) Hyperlipidemia Is this a current diagnosis for this admission?: Yes (4) Hypertension Qualifiers: Hypertension type: essential hypertension Qualified Code(s): I10 - Essential (primary) hypertension Is this a current diagnosis for this admission?: Yes (5) Small cell lung cancer, left upper lobe Is this a current diagnosis for this admission?: Yes (6) Type II diabetes mellitus Qualifiers: Diabetes mellitus terminal block assembler insulin use: without assisted use Diabetes mellitus complication status: with unspecified complications Qualified Code(s): E11.8 - Type 2 diabetes mellitus with unspecified complications Is this a current diagnosis for this admission?: Yes (7) Anasarca Is this a current diagnosis for this admission?: Yes - Plan Summary Plan Summary: Acute respiratory failure with hypoxia-continues to be on oxygen. But is comfortable and stable. Anasarca-he was on IV fluids up until yesterday when I defeated. He is having very good urine output without any use of Lasix. I may choose to give him a small dose of IV Lasix to continue with his diuresis. Hypertension - stable-continue with lisinopril and metoprolol Lung cancer with metastases to the brain- Likely has poor prognosis. I had a long discussion with family and patient today regarding his condition. He is a patient of Dr. Goss-I appreciate his assistance with this patient. Diabetes type 2-continue with Lantus, metformin and sliding scale. Although I disagree with the use of metformin while in the hospital at this point he has been on it for the last few days and I will continue. Disposition-patient was to be discharged on 09/14 to rehab and it was ordered. Yesterday he was still awaiting discharge but again he did not get to go to rehab. I asked him what happened and he tells me that his insurance is not approved his rehab stay. Patient tells me that most likely they will be going on Tuesday. He has not had any labs drawn since 09/14/18. We will get some labs in the morning.
[2018-09-16] MEDS: ATORVASTATIN CALCIUM 80 MG TABLET PO SCH (21:54)
[2018-09-17] MEDS: HEPARIN SOD (PORCINE) 5,000 UNIT/ML 1 ML SYRINGE SUBCUT SCH ×3 (06:00→22:05)
[2018-09-17] MEDS: TAMSULOSIN HCL 0.4 MG CAP.SR.24H PO SCH (08:24)
[2018-09-17] MEDS: METFORMIN HCL 500 MG TABLET PO SCH ×2 (08:24→15:27)
[2018-09-17] MEDS: LISINOPRIL 5 MG TABLET PO SCH (08:26)
[2018-09-17 09:02] LABS: BLOOD UREA NITROGEN 13 mg/dL (7-20); CALCIUM 8.4 mg/dL (8.4-10.2); GLUCOSE 83 mg/dL (75-110); POTASSIUM 3.3 mmol/L (3.6-5.0)
[2018-09-17 09:07] LABS: CARBON DIOXIDE 37 mmol/L (22-30); CHLORIDE 94 mmol/L (98-107); SODIUM 133.2 mmol/L (137-145)
[2018-09-17 09:12] LABS: ANION GAP 2 (5-19)
[2018-09-17] MEDS: METOPROLOL TARTRATE 25 MG TABLET PO SCH ×2 (09:43→22:06)
[2018-09-17] MEDS: INSULIN GLARGINE,HUM.REC.ANLOG 300 UNIT/3 ML INSULN.PEN SUBCUT SCH ×2 (09:44→22:05)
[2018-09-17] MEDS: CALCIUM CARBONATE 250 MG/VITAMIN D3 125 UNIT TABLET PO SCH ×2 (10:55→17:55)
[2018-09-17] MEDS: FAMOTIDINE 20 MG TABLET PO SCH ×2 (10:55→22:06)
[2018-09-17] MEDS ORDERED: FUROSEMIDE INJ/PF 20 MG/2 ML SDV IV ONE ×2 (11:45)
[2018-09-17] MEDS ORDERED: POTASSIUM CHLORIDE 10 MEQ CAPSULE.ER PO ONE (11:45)
[2018-09-17] MEDS: MAGNESIUM SULFATE/D5W 1 GM/100 ML RTUPB IV SCH ×2 (12:05→14:37)
[2018-09-17] MEDS: ONDANSETRON HCL 8 MG TABLET PO PRN (12:48)
--- NOTE | 2018-09-17 13:22 | PDOC PROGRESS REPORT ---
Subjective Progress Note for:: 09/17/18 Subjective:: saw him today- he was laying in bed- had no acute complaints. denies chest pain, SOB, abdominal pain, n/v and dizziness. 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 ABSENT: conjunctival injection, scleral icterus Ear exam: PRESENT: normal external ear exam Mouth exam: PRESENT: tongue midline Neck exam: ABSENT: tracheal deviation Respiratory exam: PRESENT: clear to auscultation clare, symmetrical Cardiovascular exam: PRESENT: +S1, +S2 Pulses: ABSENT: +2 pedal pulses bilateral GI/Abdominal exam: PRESENT: normal bowel sounds, soft. ABSENT: tenderness Extremities exam: PRESENT: +2 edema - b/l LE edema, other - edema of abdomen, thighs and legs- better than yesterday Neurological exam: PRESENT: alert, awake, oriented to person, oriented to place, oriented to time, oriented to situation, CN II-XII grossly intact Skin exam: PRESENT: dry, warm Results Laboratory Results: 09/14/18 04:55 09/17/18 08:16 09/17/18 08:16 Sodium 133.2 L Potassium 3.3 L Chloride 94 L Carbon Dioxide 37 H Anion Gap 2 L BUN 13 Creatinine 0.52 Est GFR ( Amer) > 60 Est GFR (Non-Af Amer) > 60 Glucose 83 Calcium 8.4 Magnesium 1.5 L 08/23/18 08/23/18 08/23/18 14:04 14:27 14:27 Creatine Kinase Cancelled 21 L Troponin I < 0.012 Impressions: Chest X-Ray 08/23/18 13:16 IMPRESSION: Findings worrisome for postobstructive pneumonia in the left upper lobe related to left hilar mass Abdomen/Pelvis CT 08/23/18 14:48 IMPRESSION: Malignant appearing left hilar mass with postobstructive collapse and consolidation left upper lobe. Bony metastatic lesions in the sternum and L5 vertebral body Malignant appearing Mediastinal and retroperitoneal lymph nodes. Multiple peritoneal implants without ascites. Chest CT 08/23/18 14:48 IMPRESSION: Malignant appearing left hilar mass with postobstructive collapse and consolidation left upper lobe. Bony metastatic lesions in the sternum and L5 vertebral body Malignant appearing Mediastinal and retroperitoneal lymph nodes. Multiple peritoneal implants without ascites. Head MRI 08/24/18 00:00 IMPRESSION: Innumerable enhancing lesions consistent with extensive metastatic disease to the infratentorial and supratentorial brain, as above. Mild associated mass effect. No midline shift. copyright 2010 [employer]- All Rights Reserved Assessment & Plan - Diagnosis (1) Acute hypoxemic respiratory failure Is this a current diagnosis for this admission?: Yes (2) Brain metastases Is this a current diagnosis for this admission?: Yes (3) Hyperlipidemia Is this a current diagnosis for this admission?: Yes (4) Hypertension Qualifiers: Hypertension type: essential hypertension Qualified Code(s): I10 - Essential (primary) hypertension Is this a current diagnosis for this admission?: Yes (5) Small cell lung cancer, left upper lobe Is this a current diagnosis for this admission?: Yes (6) Type II diabetes mellitus Qualifiers: Diabetes mellitus mcfp insulin use: without mcfp use Diabetes mellitus complication status: with unspecified complications Qualified Code(s): E11.8 - Type 2 diabetes mellitus with unspecified complications Is this a current diagnosis for this admission?: Yes (7) Anasarca Is this a current diagnosis for this admission?: Yes (8) Hypokalemia Is this a current diagnosis for this admission?: Yes (9) Hyponatremia Is this a current diagnosis for this admission?: Yes - Plan Summary Plan Summary: Acute respiratory failure with hypoxia-continues to be on oxygen. But is comfortable and stable. Anasarca-he was on IV fluids for a while when I first met him on 09/15/18. He is having very good urine output without any use of Lasix. i will give him 20mg IV Lasix today. Hypertension - stable-continue with lisinopril and metoprolol Lung cancer with metastases to the brain- Likely has poor prognosis. I had a long discussion with family and patient today regarding his condition. He is a patient of Dr. Goss-I appreciate his assistance with this patient. Diabetes type 2-continue with Lantus, metformin and sliding scale. Although I disagree with the use of metformin while in the hospital at this point he has been on it for the last few days and I will continue. Hyponatremia- likely due to volume overload- will diurese him a little Hypokalemia- will replete as needed. he's having good UOP Disposition-patient was to be discharged on 09/14 to rehab and it was ordered. Yesterday he was still awaiting discharge but again he did not get to go to rehab. I asked him what happened and he tells me that his insurance is not approved his rehab stay. Patient tells me that most likely they will be going on Tuesday. H
[2018-09-17] MEDS: ATORVASTATIN CALCIUM 80 MG TABLET PO SCH (22:06)
[2018-09-18] MEDS: HEPARIN SOD (PORCINE) 5,000 UNIT/ML 1 ML SYRINGE SUBCUT SCH ×3 (05:11→21:32)
--- NOTE | 2018-09-18 08:37 | PDOC PROGRESS REPORT ---
Subjective Progress Note for:: 09/18/18 Subjective:: Patient states that he is feeling well. He is anxious to be transferred to rehab. Nurses report that he has little to no appetite and often has nausea with meals. 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 Physical Exam Vital Signs: Temp Pulse Resp BP Pulse Ox 98.2 F 110 H 20 105/75 98 09/18/18 00:00 09/18/18 00:00 09/18/18 00:00 09/18/18 00:00 09/18/18 00:00 Intake & Output 09/17/18 09/18/18 09/19/18 06:59 06:59 06:59 Intake Total 291 210 Output Total 4024 0938 Balance -6035 -1639 Weight 74.9 kg 70 kg General appearance: PRESENT: well-nourished Head exam: PRESENT: normocephalic Respiratory exam: PRESENT: clear to auscultation clare, unlabored Cardiovascular exam: PRESENT: RRR Extremities exam: ABSENT: pedal edema Neurological exam: PRESENT: alert, awake Psychiatric exam: PRESENT: appropriate affect Skin exam: PRESENT: normal color Results Laboratory Results: 09/14/18 04:55 09/17/18 08:16 09/17/18 08:16 Sodium 133.2 L Potassium 3.3 L Chloride 94 L Carbon Dioxide 37 H Anion Gap 2 L BUN 13 Creatinine 0.52 Est GFR ( Amer) > 60 Est GFR (Non-Af Amer) > 60 Glucose 83 Calcium 8.4 Magnesium 1.5 L 08/23/18 08/23/18 08/23/18 14:04 14:27 14:27 Creatine Kinase Cancelled 21 L Troponin I < 0.012 Impressions: Chest X-Ray 08/23/18 13:16 IMPRESSION: Findings worrisome for postobstructive pneumonia in the left upper lobe related to left hilar mass Abdomen/Pelvis CT 08/23/18 14:48 IMPRESSION: Malignant appearing left hilar mass with postobstructive collapse and consolidation left upper lobe. Bony metastatic lesions in the sternum and L5 vertebral body Malignant appearing Mediastinal and retroperitoneal lymph nodes. Multiple peritoneal implants without ascites. Chest CT 08/23/18 14:48 IMPRESSION: Malignant appearing left hilar mass with postobstructive collapse a nd consolidation left upper lobe. Bony metastatic lesions in the sternum and L5 vertebral body Malignant appearing Mediastinal and retroperitoneal lymph nodes. Multiple peritoneal implants without ascites. Head MRI 08/24/18 00:00 IMPRESSION: Innumerable enhancing lesions consistent with extensive metastatic disease to the infratentorial and supratentorial brain, as above. Mild associated mass effect. No midline shift. copyright 2010 [employer]- All Rights Reserved Assessment & Plan - Diagnosis (1) Lung mass Is this a current diagnosis for this admission?: Yes (2) Brain metastases Is this a current diagnosis for this admission?: Yes (3) Risk for falls Is this a current diagnosis for this admission?: Yes (4) Nausea Is this a current diagnosis for this admission?: Yes Plan: I will add reglan PRN prior to meals to see if this helps. (5) Small cell lung cancer, left upper lobe Is this a current diagnosis for this admission?: Yes Plan: s/p radiation and chemo. Await rehab placement.
[2018-09-18] MEDS: METFORMIN HCL 500 MG TABLET PO SCH ×2 (08:50→15:23)
[2018-09-18] MEDS: TAMSULOSIN HCL 0.4 MG CAP.SR.24H PO SCH (08:51)
[2018-09-18] MEDS: LISINOPRIL 5 MG TABLET PO SCH (08:51)
[2018-09-18] MEDS: FAMOTIDINE 20 MG TABLET PO SCH ×2 (09:25→21:39)
[2018-09-18] MEDS: INSULIN GLARGINE,HUM.REC.ANLOG 300 UNIT/3 ML INSULN.PEN SUBCUT SCH ×2 (09:25→21:32)
[2018-09-18] MEDS: METOPROLOL TARTRATE 25 MG TABLET PO SCH ×2 (09:25→21:39)
[2018-09-18] MEDS: CALCIUM CARBONATE 250 MG/VITAMIN D3 125 UNIT TABLET PO SCH ×2 (09:25→17:07)
[2018-09-18] MEDS: METOCLOPRAMIDE HCL INJ/PF 10 MG/2 ML SDV IV PRN (10:22)
--- NOTE | 2018-09-18 12:13 | PDOC PROGRESS REPORT ---
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 ABSENT: conjunctival injection, scleral icterus Ear exam: PRESENT: normal external ear exam Mouth exam: PRESENT: tongue midline Neck exam: ABSENT: tracheal deviation Respiratory exam: PRESENT: clear to auscultation clare, symmetrical Cardiovascular exam: PRESENT: +S1, +S2, other - anasarca is much better now Pulses: PRESENT: +2 pedal pulses bilateral GI/Abdominal exam: PRESENT: normal bowel sounds, soft. ABSENT: tenderness Extremities exam: PRESENT: pedal edema - 1+ edema bilaterally of the feet Neurological exam: PRESENT: alert, awake, oriented to person, oriented to place, oriented to time, oriented to situation Skin exam: PRESENT: dry, warm Results Laboratory Results: 09/14/18 04:55 09/17/18 08:16 08/23/18 08/23/18 08/23/18 14:04 14:27 14:27 Creatine Kinase Cancelled 21 L Troponin I < 0.012 Impressions: Chest X-Ray 08/23/18 13:16 IMPRESSION: Findings worrisome for postobstructive pneumonia in the left upper lobe related to left hilar mass Abdomen/Pelvis CT 08/23/18 14:48 IMPRESSION: Malignant appearing left hilar mass with postobstructive collapse and consolidation left upper lobe. Bony metastatic lesions in the sternum and L5 vertebral body Malignant appearing Mediastinal and retroperitoneal lymph nodes. Multiple peritoneal implants without ascites. Chest CT 08/23/18 14:48 IMPRESSION: Malignant appearing left hilar mass with postobstructive collapse and consolidation left upper lobe. Bony metastatic lesions in the sternum and L5 vertebral body Malignant appearing Mediastinal and retroperitoneal lymph nodes. Multiple peritoneal implants without ascites. Head MRI 08/24/18 00:00 IMPRESSION: Innumerable enhancing lesions consistent with extensive metastatic disease to the infratentorial and supratentorial brain, as above. Mild associated mass effect. No midline shift. copyright 2010 [employer]- All Rights Reserved Assessment & Plan - Diagnosis (1) Acute hypoxemic respiratory failure Is this a current diagnosis for this admission?: Yes (2) Brain metastases Is this a current diagnosis for this admission?: Yes (3) Hyperlipidemia Is this a current diagnosis for this admission?: Yes (4) Hypertension Qualifiers: Hypertension type: essential hypertension Qualified Code(s): I10 - Essential (primary) hypertension Is this a current diagnosis for this admission?: Yes (5) Small cell lung cancer, left upper lobe Is this a current diagnosis for this admission?: Yes (6) Type II diabetes mellitus Qualifiers: Diabetes mellitus intermodal customer service insulin use: without care home use Diabetes mellitus complication status: with unspecified complications Qualified Code(s): E11.8 - Type 2 diabetes mellitus with unspecified complications Is this a current diagnosis for this admission?: Yes (7) Anasarca Is this a current diagnosis for this admission?: Yes (8) Hypokalemia Is this a current diagnosis for this admission?: Yes (9) Hyponatremia Is this a current diagnosis for this admission?: Yes - Plan Summary Plan Summary: Acute respiratory failure with hypoxia-continues to be on oxygen. But is comfortable and stable. Anasarca-much better - he was on IV fluids for a while when I first met him on 09/15/18. He is having very good urine output without any use of Lasix. gave me one dose of lasix so far Hypertension - stable-continue with lisinopril and metoprolol Lung cancer with metastases to the brain- Likely has poor prognosis. I had a long discussion with family and patient today regarding his condition. He is a patient of Dr. Goss-I appreciate Oncology assistance with this patient. Diabetes type 2-continue with Lantus, metformin and sliding scale. Although I disagree with the use of metformin while in the hospital at this point he has been on it for the last few days and I will continue. Hyponatremia- likely due to volume overload- will check BMP today Hypokalemia- will replete as needed. will check BMP today. Disposition-awaiting for rehab - patient was to be discharged on 09/14 to rehab and it was ordered. but insurance has not approved it yet
[2018-09-18 13:55] LABS: BLOOD UREA NITROGEN 15 mg/dL (7-20); CALCIUM 8.4 mg/dL (8.4-10.2); GLUCOSE 86 mg/dL (75-110)
[2018-09-18 14:07] LABS: ANION GAP 7 (5-19); CARBON DIOXIDE 36 mmol/L (22-30); CHLORIDE 89 mmol/L (98-107)
[2018-09-18 14:15] LABS: POTASSIUM 3.1 mmol/L (3.6-5.0); SODIUM 132.4 mmol/L (137-145)
[2018-09-18] MEDS ORDERED: POTASSI CL 20 MEQ/NS 1L 1,000 ML IV PRN (14:20)
[2018-09-18] MEDS: POTASSI CL 20 MEQ/50 ML RIDER 20 MEQ/50 ML RTUPB IV SCH ×2 (14:56→16:48)
[2018-09-18] MEDS ORDERED: POTASSIUM CHLORIDE 10 MEQ CAPSULE.ER PO ONE (15:00)
[2018-09-18] MEDS ORDERED: POTASSIUM CHLORIDE 20 MEQ/15 ML UDCUP PO ONE (15:00)
[2018-09-18] MEDS: DRONABINOL 2.5 MG CAPSULE PO PRN (21:37)
[2018-09-18] MEDS: ATORVASTATIN CALCIUM 80 MG TABLET PO SCH (21:38)
[2018-09-19] MEDS: HEPARIN SOD (PORCINE) 5,000 UNIT/ML 1 ML SYRINGE SUBCUT SCH ×3 (05:09→21:59)
[2018-09-19 08:21] LABS: ANION GAP 7 (5-19); BLOOD UREA NITROGEN 17 mg/dL (7-20); CALCIUM 8.1 mg/dL (8.4-10.2); CARBON DIOXIDE 35 mmol/L (22-30); CHLORIDE 91 mmol/L (98-107); GLUCOSE 91 mg/dL (75-110); POTASSIUM 3.8 mmol/L (3.6-5.0); SODIUM 133.4 mmol/L (137-145)
--- NOTE | 2018-09-19 08:29 | PDOC PROGRESS REPORT ---
Subjective Progress Note for:: 09/19/18 Subjective:: Patient without complaints. However, nurses report that patient is refusing some of his meds, food, and overall not doing well. 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4 L 133.4 L Potassium 3.1 L 3.8 Chloride 89 L 91 L Carbon Dioxide 36 H 35 H Anion Gap 7 7 BUN 15 17 Creatinine 0.66 0.60 Est GFR ( Amer) > 60 > 60 Est GFR (Non-Af Amer) > 60 > 60 Glucose 86 91 Calcium 8.4 8.1 L Magnesium 1.5 L 08/23/18 08/23/18 08/23/18 14:04 14:27 14:27 Creatine Kinase Cancelled 21 L Troponin I < 0.012 Impressions: Chest X-Ray 08/23/18 13:16 IMPRESSION: Findings worrisome for postobstructive pneumonia in the left upper lobe related to left hilar mass Abdomen/Pelvis CT 08/23/18 14:48 IMPRESSION: Malignant appearing left hilar mass with postobstructive collapse and consolidation left upper lobe. Bony metastatic lesions in the sternum and L5 vertebral body Malignant appearing Mediastinal and retroperitoneal lymph nodes. Multiple peritoneal implants without ascites. Chest CT 08/23/18 14:48 IMPRESSION: Malignant appearing left hilar mass with postobstructive collapse and consolidation left upper lobe. Bony metastatic lesions in the sternum and L5 vertebral body Malignant appearing Mediastinal and retroperitoneal lymph nodes. Multiple pe ritoneal implants without ascites. Head MRI 08/24/18 00:00 IMPRESSION: Innumerable enhancing lesions consistent with extensive metastatic disease to the infratentorial and supratentorial brain, as above. Mild associated mass effect. No midline shift. copyright 2010 [employer]- All Rights Reserved Assessment & Plan - Diagnosis (1) Lung mass Is this a current diagnosis for this admission?: Yes (2) Brain metastases Is this a current diagnosis for this admission?: Yes (3) Risk for falls Is this a current diagnosis for this admission?: Yes (4) Nausea Is this a current diagnosis for this admission?: Yes Plan: Patient denies nausea currently. Has no appetite, but I have encouraged him to eat. (5) Small cell lung cancer, left upper lobe Is this a current diagnosis for this admission?: Yes Plan: Patient has received radiation and chemotherapy. Patient and family had decided to see if he will get stronger at this point, or continue to get weaker. No further treatment planned for at least 2 more weeks so that he may recover and gain strength. - Plan Summary Plan Summary: He has been in the hospital bed now for over 3 weeks. He appears depressed. He again needs to get his strength back with aggressive physical therapy/rehab. Still awaiting insurance approval. He has a bed offer at [facility] once insurance comes through.
[2018-09-19] MEDS: LISINOPRIL 5 MG TABLET PO SCH (09:10)
[2018-09-19] MEDS: INSULIN GLARGINE,HUM.REC.ANLOG 300 UNIT/3 ML INSULN.PEN SUBCUT SCH ×2 (09:15→21:59)
[2018-09-19] MEDS: FAMOTIDINE 20 MG TABLET PO SCH ×2 (09:45→21:59)
[2018-09-19] MEDS: METOCLOPRAMIDE HCL INJ/PF 10 MG/2 ML SDV IV PRN (09:45)
[2018-09-19] MEDS: TAMSULOSIN HCL 0.4 MG CAP.SR.24H PO SCH (09:45)
[2018-09-19] MEDS: METFORMIN HCL 500 MG TABLET PO SCH ×2 (09:45→16:51)
[2018-09-19] MEDS: CALCIUM CARBONATE 250 MG/VITAMIN D3 125 UNIT TABLET PO SCH ×2 (09:45→18:00)
[2018-09-19] MEDS: METOPROLOL TARTRATE 25 MG TABLET PO SCH ×2 (09:45→21:59)
--- NOTE | 2018-09-19 16:06 | PDOC PROGRESS REPORT ---
Subjective Progress Note for:: 09/19/18 Subjective:: I saw patient this morning on rounds. He had no complaints to me. He denies chest pain, shortness of breath, abdominal pain, nausea/vomiting or dizziness. 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 ABSENT: conjunctival injection, scleral icterus Ear exam: PRESENT: normal external ear exam Mouth exam: PRESENT: moist, tongue midline Neck exam: ABSENT: tracheal deviation Respiratory exam: PRESENT: clear to auscultation clare, symmetrical Cardiovascular exam: PRESENT: +S1, +S2 GI/Abdominal exam: PRESENT: normal bowel sounds, soft. ABSENT: tenderness Extremities exam: ABSENT: pedal edema Neurological exam: PRESENT: alert, awake, oriented to person, oriented to place, oriented to time, oriented to situation, CN II-XII grossly intact Skin exam: PRESENT: dry, warm Results Laboratory Results: 09/14/18 04:55 09/19/18 07:53 09/19/18 07:53 Sodium 133.4 L Potassium 3.8 Chloride 91 L Carbon Dioxide 35 H Anion Gap 7 BUN 17 Creatinine 0.60 Est GFR ( Amer) > 60 Est GFR (Non-Af Amer) > 60 Glucose 91 Calcium 8.1 L Magnesium 1.5 L 08/23/18 08/23/18 08/23/18 14:04 14:27 14:27 Creatine Kinase Cancelled 21 L Troponin I < 0.012 Impressions: Chest X-Ray 08/23/18 13:16 IMPRESSION: Findings worrisome for postobstructive pneumonia in the left upper lobe related to left hilar mass Abdomen/Pelvis CT 08/23/18 14:48 IMPRESSION: Malignant appearing left hilar mass with postobstructive collapse and consolidation left upper lobe. Bony metastatic lesions in the sternum and L5 vertebral body Malignant appearing Mediastinal and retroperitoneal lymph nodes. Multiple peritoneal implants without ascites. Chest CT 08/23/18 14:48 IMPRESSION: Malignant appearing left hilar mass with postobstructive collapse and consolidation left upper lobe. Bony metastatic lesions in the sternum and L5 vertebral body Malignant appearing Mediastinal and retroperitoneal lymph nodes. Multiple peritoneal implants without ascites. Head MRI 08/24/18 00:00 IMPRESSION: Innumerable enhancing lesions consistent with extensive metastatic disease to the infratentorial and supratentorial brain, as above. Mild associated mass effect. No midline shift. copyright 2011 [employer]- All Rights Reserved Assessment & Plan - Diagnosis (1) Acute hypoxemic respiratory failure Is this a current diagnosis for this admission?: Yes (2) Brain metastases Is this a current diagnosis for this admission?: Yes (3) Hyperlipidemia Is this a current diagnosis for this admission?: Yes (4) Hypertension Qualifiers: Hypertension type: essential hypertension Qualified Code(s): I10 - Essential (primary) hypertension Is this a current diagnosis for this admission?: Yes (5) Small cell lung cancer, left upper lobe Is this a current diagnosis for this admission?: Yes (6) Type II diabetes mellitus Qualifiers: Diabetes mellitus penitentiary insulin use: without penitentiary use Diabetes mellitus complication status: with unspecified complications Qualified Code(s): E11.8 - Type 2 diabetes mellitus with unspecified complications Is this a current diagnosis for this admission?: Yes (7) Anasarca Is this a current diagnosis for this admission?: Yes (8) Hypokalemia Is this a current diagnosis for this admission?: Yes (9) Hyponatremia Is this a current diagnosis for this admission?: Yes - Plan Summary Plan Summary: Acute respiratory failure with hypoxia-continues to be on oxygen. But is comfortable and stable. I have asked nursing to wean him as tolerated. Anasarca-resolved - he was on IV fluids for a while when I first met him on 09/15/18. He is having very good urine output without any use of Lasix. gave me one dose of lasix so far Hypertension - stable-continue with lisinopril and metoprolol Lung cancer with metastases to the brain- Likely has poor prognosis. I had a long discussion with family and patient today regarding his condition. He is a patient of Dr. Goss-I appreciate Oncology assistance with this patient. At this point there is no more chemo/radiation planned until he gets stronger. Diabetes type 2-continue with Lantus, metformin and sliding scale. Although I disagree with the use of metformin while in the hospital at this point he has been on it for the last few days and I will continue. Hyponatremia-remains slightly hyponatremic-possibly due to dehydration at this point. Hypokalemia- will replete as needed. will check BMP today. Disposition-awaiting for rehab - patient was to be discharged on 09/14 to rehab and it was ordered. Spoke with case management insurance still has not approved of his rehab. I have informed this to the patient and he is awaiting their decision. I am hoping we will have a decision soon in the next 1-2 days.
[2018-09-19] MEDS: ATORVASTATIN CALCIUM 80 MG TABLET PO SCH (21:59)
[2018-09-20] MEDS: HEPARIN SOD (PORCINE) 5,000 UNIT/ML 1 ML SYRINGE SUBCUT SCH (05:23)
[2018-09-20 05:45] LABS: ABSOLUTE LYMPHOCYTES (AUTO) 0.8 10^3/uL (0.5-4.7); ABSOLUTE NEUT (AUTO) 1.5 10^3/uL (1.7-8.2); BASOPHILS % (AUTO) 1.1 % (0-2); EOSINOPHILS % (AUTO) 0.5 % (0-6); HEMATOCRIT 34.1 % (37.9-51.0); HEMOGLOBIN 11.7 g/dL (13.5-17.0); LYMPHOCYTES % (AUTO) 32.4 % (13-45); MEAN CORPUSCULAR HEMOGLOBIN 29.1 pg (27.0-33.4); MEAN CORPUSCULAR HGB CONC 34.4 g/dL (32.0-36.0); MEAN CORPUSCULAR VOLUME 85 fl (80-97); MONOCYTES % (AUTO) 0.8 % (3-13); RED BLOOD COUNT 4.04 10^6/uL (4.35-5.55); SEGMENTED NEUTROPHILS % (AUTO) 65.2 % (42-78); TOTAL CELLS COUNTED % (AUTO) 100 %; WHITE BLOOD COUNT 2.4 10^3/uL (4.0-10.5)
[2018-09-20 05:58] LABS: ALANINE AMINOTRANSFERASE 28 U/L (21-72); ALBUMIN 2.7 g/dL (3.5-5.0); ALKALINE PHOSPHATASE 81 U/L (38-126); ANION GAP 8 (5-19); ASPARTATE AMINO TRANSFERASE 29 U/L (17-59); BILIRUBIN,DIRECT 0.4 mg/dL (0.0-0.4); BILIRUBIN,TOTAL 0.8 mg/dL (0.2-1.3); BLOOD UREA NITROGEN 19 mg/dL (7-20); CALCIUM 8.1 mg/dL (8.4-10.2); CARBON DIOXIDE 37 mmol/L (22-30); CHLORIDE 88 mmol/L (98-107); GLUCOSE 84 mg/dL (75-110); POTASSIUM 3.2 mmol/L (3.6-5.0); SODIUM 133.4 mmol/L (137-145); TOTAL PROTEIN 4.8 g/dL (6.3-8.2)
[2018-09-20 06:15] LABS: PLATELET COUNT 55 10^3/uL (150-450)
--- NOTE | 2018-09-20 08:27 | PDOC PROGRESS REPORT ---
Subjective Progress Note for:: 09/20/18 Subjective:: Patient states that he is weak, but trying to get stronger. He denies any pain or nausea. Nurses report he is still refusing most of his medications. His blood counts have also dropped. 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 Physical Exam Vital Signs: Temp Pulse Resp BP Pulse Ox 98.2 F 95 18 113/78 99 09/20/18 00:02 09/20/18 00:02 09/19/18 15:19 09/20/18 00:02 09/20/18 00:02 Intake & Output 09/19/18 09/20/18 09/21/18 06:59 06:59 06:59 Intake Total 1297 10 Output Total 3200 1580 Balance -1903 -1570 Weight 66.4 kg 63.6 kg General appearance: PRESENT: thin Head exam: PRESENT: normocephalic Respiratory exam: PRESENT: unlabored Extremities exam: ABSENT: pedal edema Neurological exam: PRESENT: alert, awake Psychiatric exam: PRESENT: appropriate affect Skin exam: PRESENT: normal color Results Laboratory Results: 09/20/18 04:49 09/20/18 04:49 09/19/18 09/20/18 09/20/18 07:53 04:49 04:49 WBC 2.4 L RBC 4.04 L Hgb 11.7 L Hct 34.1 L MCV 85 MCH 29.1 MCHC 34.4 RDW 16.0 H Plt Count 55 L Seg Neutrophils % 65.2 Lymphocytes % 32.4 Monocytes % 0.8 L Eosinophils % 0.5 Basophils % 1.1 Absolute Neutrophils 1.5 L Absolute Lymphocytes 0.8 Absolute Monocytes 0.0 L Absolute Eosinophils 0.0 Absolute Basophils 0.0 Sodium 133.4 L 133.4 L Potassium 3.8 3.2 L Chloride 91 L 88 L Carbon Dioxide 35 H 37 H Anion Gap 7 8 BUN 17 19 Creatinine 0.60 0.80 Est GFR ( Amer) > 60 > 60 Est GFR (Non-Af Amer) > 60 > 60 Glucose 91 84 Calcium 8.1 L 8.1 L Magnesium 1.5 L 1.5 L Total Bilirubin 0.8 AST 29 ALT 28 Alkaline Phosphatase 81 Total Protein 4.8 L Albumin 2.7 L 08/23/18 08/23/18 08/23/18 14:04 14:27 14:27 Creatine Kinase Cancelled 21 L Troponin I < 0.012 Impressions: Chest X-Ray 08/23/18 13:16 IMPRESSION: Findings worrisome for postobstructive pneumonia in the left upper lobe related to left hilar mass Abdomen/Pelvis CT 08/23/18 14:48 IMPRESSION: Malignant appearing left hilar mass with postobstructive collapse and consolidation left upper lobe. Bony metastatic lesions in the sternum and L5 vertebral body Malignant appearing Mediastinal and retroperitoneal lymph nodes. Multiple p eritoneal implants without ascites. Chest CT 08/23/18 14:48 IMPRESSION: Malignant appearing left hilar mass with postobstructive collapse and consolidation left upper lobe. Bony metastatic lesions in the sternum and L5 vertebral body Malignant appearing Mediastinal and retroperitoneal lymph nodes. Multiple peritoneal implants without ascites. Head MRI 08/24/18 00:00 IMPRESSION: Innumerable enhancing lesions consistent with extensive metastatic disease to the infratentorial and supratentorial brain, as above. Mild associated mass effect. No midline shift. copyright 2011 [employer]- All Rights Reserved Assessment & Plan - Diagnosis (1) Lung mass Is this a current diagnosis for this admission?: Yes (2) Brain metastases Is this a current diagnosis for this admission?: Yes Plan: s/p radiation therapy. (3) Risk for falls Is this a current diagnosis for this admission?: Yes (4) Nausea Is this a current diagnosis for this admission?: Yes (5) Small cell lung cancer, left upper lobe Is this a current diagnosis for this admission?: Yes Plan: Cycle #1 chemo last week. No further planned for now. (6) Pancytopenia due to antineoplastic chemotherapy Is this a current diagnosis for this admission?: Yes Plan: Bleeding precautions. ANC still >1.0 today. But watch for fever. I have explained to the patient that he may feel very weak the next few days, but his blood counts should improve within 2-3 days. - Plan Summary Plan Summary: I have been told that he was not felt to be a good candidate for rehab. We are working with family to find an alternative solution for his discharge. I am happy to meet with family members if needed. Patient will discuss with them.
[2018-09-20] MEDS ORDERED: METOCLOPRAMIDE HCL INJ/PF 10 MG/2 ML SDV IV PRN (09:00)
[2018-09-20] MEDS: LISINOPRIL 5 MG TABLET PO SCH ×2 (09:56→11:40)
[2018-09-20] MEDS: INSULIN GLARGINE,HUM.REC.ANLOG 300 UNIT/3 ML INSULN.PEN SUBCUT SCH ×2 (09:56→21:29)
[2018-09-20] MEDS: METOPROLOL TARTRATE 25 MG TABLET PO SCH ×2 (09:57→21:20)
[2018-09-20] MEDS: POTASSIUM CHLORIDE 10 MEQ CAPSULE.ER PO SCH ×2 (10:01→11:40)
[2018-09-20] MEDS: MAGNESIUM SULFATE/D5W 1 GM/100 ML RTUPB IV SCH ×2 (10:02→11:42)
[2018-09-20] MEDS: METFORMIN HCL 500 MG TABLET PO SCH ×3 (10:02→16:11)
[2018-09-20] MEDS: FAMOTIDINE 20 MG TABLET PO SCH ×3 (10:02→21:20)
[2018-09-20] MEDS: TAMSULOSIN HCL 0.4 MG CAP.SR.24H PO SCH ×2 (10:02→11:40)
[2018-09-20] MEDS: CALCIUM CARBONATE 250 MG/VITAMIN D3 125 UNIT TABLET PO SCH ×3 (10:03→17:12)
--- NOTE | 2018-09-20 11:48 | PDOC PROGRESS REPORT ---
Subjective Progress Note for:: 09/20/18 Subjective:: Saw patient at bedside and he remains the same. He has no energy to do anything. He has not work with therapy. He is too deconditioned. Oncology is also seen him. He has no complaints of chest pain, shortness of breath, abdominal pain, nausea/vomiting or dizziness. Tells me he just feels weak and tired overall. I asked him to talk to his family talk to his family about disposition since insurance may decline. He said he will talk to family. 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 ABSENT: conjunctival injection, scleral icterus Ear exam: PRESENT: normal external ear exam Mouth exam: PRESENT: tongue midline Neck exam: ABSENT: tracheal deviation Respiratory exam: PRESENT: clear to auscultation clare, symmetrical Cardiovascular exam: PRESENT: +S1, +S2 GI/Abdominal exam: PRESENT: normal bowel sounds, soft. ABSENT: tenderness Extremities exam: ABSENT: pedal edema Neurological exam: PRESENT: awake, oriented to person, oriented to place, oriented to time, CN II-XII grossly intact Skin exam: PRESENT: dry, warm Results Laboratory Results: 09/20/18 04:49 09/20/18 04:49 09/20/18 09/20/18 04:49 04:49 WBC 2.4 L RBC 4.04 L Hgb 11.7 L Hct 34.1 L MCV 85 MCH 29.1 MCHC 34.4 RDW 16.0 H Plt Count 55 L Seg Neutrophils % 65.2 Lymphocytes % 32.4 Monocytes % 0.8 L Eosinophils % 0.5 Basophils % 1.1 Absolute Neutrophils 1.5 L Absolute Lymphocytes 0.8 Absolute Monocytes 0.0 L Absolute Eosinophils 0.0 Absolute Basophils 0.0 Sodium 133.4 L Potassium 3.2 L Chloride 88 L Carbon Dioxide 37 H Anion Gap 8 BUN 19 Creatinine 0.80 Est GFR ( Amer) > 60 Est GFR (Non-Af Amer) > 60 Glucose 84 Calcium 8.1 L Magnesium 1.5 L Total Bilirubin 0.8 AST 29 ALT 28 Alkaline Phosphatase 81 Total Protein 4.8 L Albumin 2.7 L 08/23/18 08/23/18 08/23/18 14:04 14:27 14:27 Creatine Kinase Cancelled 21 L Troponin I < 0.012 Impressions: Chest X-Ray 08/23/18 13:16 IMPRESSION: Findings worrisome for postobstructive pneumonia in the left upper lobe related to left hilar mass Abdomen/Pelvis CT 08/23/18 14:48 IMPRESSION: Malignant appearing left hilar mass with postobstructive collapse and consolidation left upper lobe. Bony metastatic lesions in the sternum and L5 vertebral body Malignant appearing Mediastinal and retroperitoneal lymph nodes. Multiple peritoneal implants without ascites. Chest CT 08/23/18 14:48 IMPRESSION: Malignant appearing left hilar mass with postobstructive collapse and consolidation left upper lobe. Bony metastatic lesions in the sternum and L5 vertebral body Malignant appearing Mediastinal and retroperitoneal lymph nodes. Multiple peritoneal implants without ascites. Head MRI 08/24/18 00:00 IMPRESSION: Innumerable enhancing lesions consistent with extensive metastatic disease to the infratentorial and supratentorial brain, as above. Mild associated mass effect. No midline shift. copyright 2010 [employer]- All Rights Reserved Assessment & Plan - Diagnosis (1) Acute hypoxemic respiratory failure Is this a current diagnosis for this admission?: Yes (2) Brain metastases Is this a current diagnosis for this admission?: Yes (3) Hyperlipidemia Is this a current diagnosis for this admission?: Yes (4) Hypertension Qualifiers: Hypertension type: essential hypertension Qualified Code(s): I10 - Essential (primary) hypertension Is this a current diagnosis for this admission?: Yes (5) Small cell lung cancer, left upper lobe Is this a current diagnosis for this admission?: Yes (6) Type II diabetes mellitus Qualifiers: Diabetes mellitus rat exterminator insulin use: without chcf use Diabetes mellitus complication status: with unspecified complications Qualified Code(s): E11.8 - Type 2 diabetes mellitus with unspecified complications Is this a current diagnosis for this admission?: Yes (7) Anasarca Is this a current diagnosis for this admission?: Yes (8) Hypokalemia Is this a current diagnosis for this admission?: Yes (9) Hyponatremia Is this a current diagnosis for this admission?: Yes (10) Thrombocytopenia Is this a current diagnosis for this admission?: Yes - Plan Summary Plan Summary: Acute respiratory failure with hypoxia-continues to be on oxygen. But is comfortable and stable. I have asked nursing to wean him as tolerated. Anasarca-resolved - he was on IV fluids for a while when I first met him on 09/15/18. He is having very good urine output without any use of Lasix. gave me one dose of lasix so far Hypertension - stable-continue with lisinopril and metoprolol Lung cancer with metastases to the brain- Likely has poor prognosis. I had a long discussion with family and patient today regarding his condition. He is a patient of Dr. Goss-I appreciate Oncology assistance with this patient. At this point there is no more chemo/radiation planned until he gets stronger. Diabetes type 2-continue with Lantus, metformin and sliding scale. Although I disagree with the use of metformin while in the hospital at this point he has been on it for the last few days and I will continue. Hyponatremia-remains slightly hyponatremic-possibly due to dehydration at this point. Hypokalemia- will replete as needed. will check BMP today. Thrombocytopenia-noted today to be 55. I stopped his heparin subcu and start him on SCDs. Most likely related to his cancer. Oncology is aware. Disposition-awaiting for rehab - patient was to be discharged on 09/14 to rehab and it was ordered. Spoke with case management insurance still has not approved of his rehab. This time it does not seem like insurance will accept him for short-term rehab as he has showed no indication of wanting to to rehab. We will need to discuss with family about other dispositions. He is aware and trying to discuss this with family.
[2018-09-20] MEDS: POTASSIUM CHLORIDE 20 MEQ/50 ML RTU IV SCH ×2 (14:41→21:22)
[2018-09-20] MEDS: NORMAL SALINE 1000 ML 1,000 ML IV PRN (14:41)
[2018-09-21] MEDS: TAMSULOSIN HCL 0.4 MG CAP.SR.24H PO SCH (07:31)
[2018-09-21] MEDS: METFORMIN HCL 500 MG TABLET PO SCH ×2 (07:31→15:02)
[2018-09-21] MEDS: LISINOPRIL 5 MG TABLET PO SCH (07:55)
[2018-09-21] MEDS: INSULIN GLARGINE,HUM.REC.ANLOG 300 UNIT/3 ML INSULN.PEN SUBCUT SCH ×2 (09:23→22:49)
[2018-09-21] MEDS: CALCIUM CARBONATE 250 MG/VITAMIN D3 125 UNIT TABLET PO SCH ×2 (09:24→18:05)
[2018-09-21] MEDS: METOPROLOL TARTRATE 25 MG TABLET PO SCH ×2 (09:24→22:49)
[2018-09-21] MEDS: FAMOTIDINE 20 MG TABLET PO SCH ×2 (09:25→22:49)
[2018-09-21] MEDS: POTASSIUM CHLORIDE 20 MEQ/50 ML RTU IV SCH ×2 (09:28→22:48)
[2018-09-21 09:43] LABS: ANION GAP 8 (5-19); BLOOD UREA NITROGEN 18 mg/dL (7-20); CALCIUM 7.9 mg/dL (8.4-10.2); CARBON DIOXIDE 35 mmol/L (22-30); CHLORIDE 90 mmol/L (98-107); GLUCOSE 103 mg/dL (75-110); POTASSIUM 3.1 mmol/L (3.6-5.0); SODIUM 133.3 mmol/L (137-145)
--- NOTE | 2018-09-21 16:36 | PDOC PROGRESS REPORT ---
Subjective Progress Note for:: 09/21/18 Subjective:: Patient without any further complaints. He is planning to ask for [employer] today. 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 Physical Exam Vital Signs: Temp Pulse Resp BP Pulse Ox 97.4 F 109 H 16 88/66 L 98 09/21/18 15:26 09/21/18 15:26 09/21/18 15:26 09/21/18 15:26 09/21/18 15:26 Intake & Output 09/20/18 09/21/18 09/22/18 06:59 06:59 06:59 Intake Total 10 468 1050 Output Total 1580 800 Balance -1570 -332 1050 Weight 63.6 kg 63 kg General appearance: PRESENT: thin Head exam: PRESENT: normocephalic Respiratory exam: PRESENT: unlabored Neurological exam: PRESENT: alert, awake Psychiatric exam: PRESENT: appropriate affect Skin exam: PRESENT: normal color Results Laboratory Results: 09/20/18 04:49 09/21/18 08:41 09/21/18 08:41 Sodium 133.3 L Potassium 3.1 L Chloride 90 L Carbon Dioxide 35 H Anion Gap 8 BUN 18 Creatinine 0.75 Est GFR ( Amer) > 60 Est GFR (Non-Af Amer) > 60 Glucose 103 Calcium 7.9 L Magnesium 1.8 08/23/18 08/23/18 08/23/18 14:04 14:27 14:27 Creatine Kinase Cancelled 21 L Troponin I < 0.012 Impressions: Chest X-Ray 08/23/18 13:16 IMPRESSION: Findings worrisome for postobstructive pneumonia in the left upper lobe related to left hilar mass Abdomen/Pelvis CT 08/23/18 14:48 IMPRESSION: Malignant appearing left hilar mass with postobstructive collapse and consolidation left upper lobe. Bony metastatic lesions in the sternum and L5 vertebral body Malignant appearing Mediastinal and retroperitoneal lymph nodes. Multiple peritoneal implants without ascites. Chest CT 08/23/18 14:48 IMPRESSION: Malignant appearing left hilar mass with postobstructive collapse and consolidation left upper lobe. Bony metastatic lesions in the sternum and L5 vertebral body Malignant appearing Mediastinal and retroperitoneal lymph nodes. Multiple peritoneal implants without ascites. Head MRI 08/24/18 00:00 IMPRESSION: Innumerable enhancing lesions consistent with extensive metastatic disease to the infratentorial and supratentorial brain, as above. Mild associated mass effect. No midline shift. copyright 2011 [employer]- All Rights Reserved Assessment & Plan - Diagnosis (1) Lung mass Is this a current diagnosis for this admission?: Yes (2) Brain metastases Is this a current diagnosis for this admission?: Yes (3) Risk for falls Is this a current diagnosis for this admission?: Yes Plan: He continues to need physical therapy for this. I believe he would greatly benefit from SNF or rehab stay to help with strength and deconditioning. (4) Nausea Is this a current diagnosis for this admission?: Yes (5) Small cell lung cancer, left upper lobe Is this a current diagnosis for this admission?: Yes Plan: He has completed all of his brain radiation. He received 1 cycle of chemotherapy. No further treatment is planned at present. (6) Pancytopenia due to antineoplastic chemotherapy Is this a current diagnosis for this admission?: Yes Plan: This is resolving. No fevers. No bleeding. - Plan Summary Plan Summary: I discussed his care with his nephew at length. I am unsure why his insurance will not allow rehab therapy. He is not safe to stay alone. No further treatment is planned. Continue palliative care.
--- NOTE | 2018-09-21 20:26 | PDOC PROGRESS REPORT ---
Subjective Progress Note for:: 09/21/18 Subjective:: No complaint at this time, just feels tired. No rehab potential apparently by his insurance company. Denies fever or chills, no chest pain or shortness of breath or palpitations. 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 ABSENT: conjunctival injection, scleral icterus Ear exam: PRESENT: normal external ear exam Mouth exam: PRESENT: tongue midline Neck exam: ABSENT: tracheal deviation Respiratory exam: PRESENT: clear to auscultation clare, symmetrical Cardiovascular exam: PRESENT: +S1, +S2 GI/Abdominal exam: PRESENT: normal bowel sounds, soft. ABSENT: tenderness Extremities exam: ABSENT: pedal edema Neurological exam: PRESENT: awake, oriented to person, oriented to place, oriented to time, CN II-XII grossly intact Skin exam: PRESENT: dry, warm Results Laboratory Results: 09/20/18 04:49 09/21/18 08:41 09/21/18 08:41 Sodium 133.3 L Potassium 3.1 L Chloride 90 L Carbon Dioxide 35 H Anion Gap 8 BUN 18 Creatinine 0.75 Est GFR ( Amer) > 60 Est GFR (Non-Af Amer) > 60 Glucose 103 Calcium 7.9 L Magnesium 1.8 08/23/18 08/23/18 08/23/18 14:04 14:27 14:27 Creatine Kinase Cancelled 21 L Troponin I < 0.012 Impressions: Chest X-Ray 08/23/18 13:16 IMPRESSION: Findings worrisome for postobstructive pneumonia in the left upper lobe related to left hilar mass Abdomen/Pelvis CT 08/23/18 14:48 IMPRESSION: Malignant appearing left hilar mass with postobstructive collapse and consolidation left upper lobe. Bony metastatic lesions in the sternum and L5 vertebral body Malignant appearing Mediastinal and retroperitoneal lymph nodes. Multiple peritoneal implants without ascites. Chest CT 08/23/18 14:48 IMPRESSION: Malignant appearing left hilar mass with postobstructive collapse and consolidation left upper lobe. Bony metastatic lesions in the sternum and L5 vertebral body Malignant appearing Mediastinal and retroperitoneal lymph nodes. Multiple peritoneal implants without ascites. Head MRI 08/24/18 00:00 IMPRESSION: Innumerable enhancing lesions consistent with extensive metastatic disease to the infratentorial and supratentorial brain, as above. Mild associated mass effect. No midline shift. copyright 2010 [employer]- All Rights Reserved Assessment & Plan - Diagnosis (1) Acute hypoxemic respiratory failure Is this a current diagnosis for this admission?: Yes (2) Anasarca Is this a current diagnosis for this admission?: Yes (3) Brain metastases Is this a current diagnosis for this admission?: Yes (4) Small cell lung cancer, left upper lobe Is this a current diagnosis for this admission?: Yes (5) Thrombocytopenia Is this a current diagnosis for this admission?: Yes (6) Type II diabetes mellitus Qualifiers: Diabetes mellitus middle or intermediate school principal insulin use: without penitentiary use Diabetes mellitus complication status: with unspecified complications Qualified Code(s): E11.8 - Type 2 diabetes mellitus with unspecified complications Is this a current diagnosis for this admission?: Yes (7) Hypokalemia Is this a current diagnosis for this admission?: Yes - Plan Summary Plan Summary: Patient with weeks of falls. He continues to need physical therapy. I believe he would benefit from acute rehab. In any case, care management to continue to work with family to see if if there is any way they can care for patient at home" Follow-up by heme/one appreciated. We will replete potassium. Follow-up CBC and Chem-7 in a.m.
[2018-09-21] MEDS ORDERED: POTASSIUM CHLORIDE 10 MEQ CAPSULE.ER PO ONE (21:00)
[2018-09-22] MEDS: POTASSIUM CHLORIDE 20 MEQ/50 ML RTU IV SCH (01:41)
[2018-09-22] MEDS: NORMAL SALINE 1000 ML 1,000 ML IV PRN ×2 (05:36→19:58)
[2018-09-22 06:38] LABS: HEMATOCRIT 31.9 % (37.9-51.0); HEMOGLOBIN 10.9 g/dL (13.5-17.0); MEAN CORPUSCULAR HEMOGLOBIN 28.8 pg (27.0-33.4); MEAN CORPUSCULAR HGB CONC 34.1 g/dL (32.0-36.0); MEAN CORPUSCULAR VOLUME 85 fl (80-97); RED BLOOD COUNT 3.78 10^6/uL (4.35-5.55); RED CELL DISTRIBUTION WIDTH 15.3 % (11.5-14.0)
[2018-09-22 06:52] LABS: ANION GAP 6 (5-19); BLOOD UREA NITROGEN 19 mg/dL (7-20); CALCIUM 7.7 mg/dL (8.4-10.2); CARBON DIOXIDE 32 mmol/L (22-30); CHLORIDE 95 mmol/L (98-107); GLUCOSE 94 mg/dL (75-110); POTASSIUM 3.5 mmol/L (3.6-5.0); SODIUM 133.1 mmol/L (137-145)
[2018-09-22 07:01] LABS: ANISOCYTOSIS SLIGHT; BURR CELLS SLIGHT; PLATELET COMMENT DECREASED; POIKILOCYTOSIS SLIGHT
[2018-09-22 07:04] LABS: PLATELET COUNT 25 10^3/uL (150-450); WHITE BLOOD COUNT 0.6 10^3/uL (4.0-10.5)
[2018-09-22] MEDS: LISINOPRIL 5 MG TABLET PO SCH (08:26)
[2018-09-22] MEDS: METFORMIN HCL 500 MG TABLET PO SCH ×2 (08:26→16:15)
[2018-09-22] MEDS: TAMSULOSIN HCL 0.4 MG CAP.SR.24H PO SCH (08:26)
[2018-09-22] MEDS: INSULIN GLARGINE,HUM.REC.ANLOG 300 UNIT/3 ML INSULN.PEN SUBCUT SCH ×2 (10:17→21:28)
[2018-09-22] MEDS: CALCIUM CARBONATE 250 MG/VITAMIN D3 125 UNIT TABLET PO SCH ×2 (10:24→17:30)
[2018-09-22] MEDS: FAMOTIDINE 20 MG TABLET PO SCH ×2 (10:25→21:28)
[2018-09-22] MEDS: METOPROLOL TARTRATE 25 MG TABLET PO SCH ×2 (10:25→21:28)
[2018-09-22 12:36] LABS: HEMATOCRIT 32.5 % (37.9-51.0); HEMOGLOBIN 11.3 g/dL (13.5-17.0); MEAN CORPUSCULAR HEMOGLOBIN 29.6 pg (27.0-33.4); MEAN CORPUSCULAR HGB CONC 34.9 g/dL (32.0-36.0); MEAN CORPUSCULAR VOLUME 85 fl (80-97); RED BLOOD COUNT 3.82 10^6/uL (4.35-5.55); RED CELL DISTRIBUTION WIDTH 15.9 % (11.5-14.0)
[2018-09-22 13:12] LABS: WHITE BLOOD COUNT 0.9 10^3/uL (4.0-10.5)
[2018-09-22 13:13] LABS: PLATELET COUNT 26 10^3/uL (150-450)
[2018-09-22 13:18] LABS: ABSOLUTE LYMPHOCYTES# (MANUAL) 0.7 10^3/uL (0.5-4.7); ABSOLUTE NEUTROPHILS# (MANUAL) 0.2 10^3/uL (1.7-8.2); BASOPHILS % (MANUAL) 2 % (0-2); EOSINOPHILS % (MANUAL) 4 % (0-6); LYMPHOCYTES % (MANUAL) 76 % (13-45); MONOCYTES % (MANUAL) 0 % (3-13); SEGMENTED NEUTROPHILS % (MAN) 18 % (42-78); TOTAL CELLS COUNTED 50
[2018-09-22 13:21] LABS: ACANTHOCYTES 1+; BURR CELLS 2+; PLATELET COMMENT DECREASED; POIKILOCYTOSIS 3+; POLYCHROMASIA SLIGHT; SCHISTOCYTES 1+
[2018-09-22 15:05] LABS: PATH REVIEW PATHOLOGIST REVIEWED
--- NOTE | 2018-09-22 19:07 | PDOC PROGRESS REPORT ---
Subjective Progress Note for:: 09/22/18 Subjective:: No complaint at this time, continues to feel tired. No rehab potential apparently per his insurance company, so he was not approved for SNF with rehab. Denies fever or chills, no chest pain or shortness of breath or palpitations. 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 ABSENT: conjunctival injection, scleral icterus Ear exam: PRESENT: normal external ear exam Mouth exam: PRESENT: tongue midline Neck exam: ABSENT: tracheal deviation Respiratory exam: PRESENT: clear to auscultation clare, symmetrical Cardiovascular exam: PRESENT: +S1, +S2 GI/Abdominal exam: PRESENT: normal bowel sounds, soft. ABSENT: tenderness Extremities exam: ABSENT: pedal edema Neurological exam: PRESENT: awake, oriented to person, oriented to place, oriented to time, generalized weakness, but no focal weakness Skin exam: PRESENT: dry, warm Results Laboratory Results: 09/22/18 11:33 09/22/18 06:19 09/22/18 09/22/18 09/22/18 06:19 06:19 11:33 WBC 0.6 L* D 0.9 L* RBC 3.78 L 3.82 L Hgb 10.9 L 11.3 L Hct 31.9 L 32.5 L MCV 85 85 MCH 28.8 29.6 MCHC 34.1 34.9 RDW 15.3 H 15.9 H Plt Count 25 L* 26 L* Seg Neutrophils % Not Reportable Not Reportable Lymphocytes % Not Reportable Not Reportable Monocytes % Not Reportable Not Reportable Eosinophils % Not Reportable Not Reportable Basophils % Not Reportable Not Reportable Absolute Neutrophils Not Reportable Not Reportable Absolute Lymphocytes Not Reportable Not Reportable Absolute Monocytes Not Reportable Not Reportable Absolute Eosinophils Not Reportable Not Reportable Absolute Basophils Not Reportable Not Reportable Sodium 133.1 L Potassium 3.5 L Chloride 95 L Carbon Dioxide 32 H Anion Gap 6 BUN 19 Creatinine 0.71 Est GFR ( Amer) > 60 Est GFR (Non-Af Amer) > 60 Glucose 94 Calcium 7.7 L 08/23/18 08/23/18 08/23/18 14:04 14:27 14:27 Creatine Kinase Cancelled 21 L Troponin I < 0.012 Impressions: Chest X-Ray 08/23/18 13:16 IMPRESSION: Findings worrisome for postobstructive pneumonia in the left upper lobe related to left hilar mass Abdomen/Pelvis CT 08/23/18 14:48 IMPRESSION: Malignant appearing left hilar mass with postobstructive collapse and consolidation left upper lobe. Bony metastatic lesions in the sternum and L5 vertebral body Malignant appearing Mediastinal and retroperitoneal lymph nodes. Multiple peritoneal implants without ascites. Chest CT 08/23/18 14:48 IMPRESSION: Malignant appearing left hilar mass with postobstructive collapse and consolidation left upper lobe. Bony metastatic lesions in the sternum and L5 vertebral body Malignant appearing Mediastinal and retroperitoneal lymph nodes. Multiple peritoneal implants without ascites. Head MRI 08/24/18 00:00 IMPRESSION: Innumerable enhancing lesions consistent with extensive metastatic disease to the infratentorial and supratentorial brain, as above. Mild associated mass effect. No midline shift. copyright 2010 [employer]- All Rights Reserved Assessment & Plan - Diagnosis (1) Acute hypoxemic respiratory failure Is this a current diagnosis for this admission?: Yes (2) Anasarca Is this a current diagnosis for this admission?: Yes (3) Brain metastases Is this a current diagnosis for this admission?: Yes (4) Small cell lung cancer, left upper lobe Is this a current diagnosis for this admission?: Yes (5) Thrombocytopenia Is this a current diagnosis for this admission?: Yes (6) Type II diabetes mellitus Qualifiers: Diabetes mellitus skilled nursing insulin use: without inserter promotional item use Diabetes mellitus complication status: with unspecified complications Qualified Code(s): E11.8 - Type 2 diabetes mellitus with unspecified complications Is this a current diagnosis for this admission?: Yes (7) Hypokalemia Is this a current diagnosis for this admission?: Yes - Plan Summary Plan Summary: Patient with weakness and falls. He continues to need physical therapy. I continue to believe he would benefit from acute rehab. In any case, care management to continue to work with family to see if there is any way they can care for patient at home. Heme/one following patient. Potassium better today, but borderline. Will give KCl 40 M EQ p.o. x1. Of note is that patient with significant throat pain white blood cells and platelets. Repeat only barely better. We will continue to follow-up CBC. Patient may need platelet transfusion if continued worsening or if bleeding. Also involved oncology as may be needed. Follow-up CBC and Chem-7 in a.m.
[2018-09-23 05:50] LABS: ABSOLUTE LYMPHOCYTES (AUTO) 0.4 10^3/uL (0.5-4.7); ABSOLUTE NEUT (AUTO) 0.1 10^3/uL (1.7-8.2); BASOPHILS % (AUTO) 0.9 % (0-2); EOSINOPHILS % (AUTO) 1.1 % (0-6); HEMATOCRIT 31.1 % (37.9-51.0); HEMOGLOBIN 10.8 g/dL (13.5-17.0); LYMPHOCYTES % (AUTO) 71.8 % (13-45); MEAN CORPUSCULAR HEMOGLOBIN 29.6 pg (27.0-33.4); MEAN CORPUSCULAR HGB CONC 34.7 g/dL (32.0-36.0); MEAN CORPUSCULAR VOLUME 85 fl (80-97); MONOCYTES % (AUTO) 8.5 % (3-13); RED BLOOD COUNT 3.65 10^6/uL (4.35-5.55); RED CELL DISTRIBUTION WIDTH 15.7 % (11.5-14.0); SEGMENTED NEUTROPHILS % (AUTO) 17.7 % (42-78); TOTAL CELLS COUNTED % (AUTO) 100 %
[2018-09-23 06:01] LABS: ANION GAP 10 (5-19); BLOOD UREA NITROGEN 17 mg/dL (7-20); CALCIUM 7.4 mg/dL (8.4-10.2); CARBON DIOXIDE 29 mmol/L (22-30); CHLORIDE 96 mmol/L (98-107); GLUCOSE 74 mg/dL (75-110); SODIUM 134.8 mmol/L (137-145)
[2018-09-23] MEDS: POTASSIUM CHLORIDE 20 MEQ/50 ML RTU IV SCH ×2 (06:46→11:04)
[2018-09-23 06:56] LABS: PLATELET COUNT 17 10^3/uL (150-450); WHITE BLOOD COUNT 0.5 10^3/uL (4.0-10.5)
[2018-09-23 07:03] LABS: ACANTHOCYTES 1+; ANISOCYTOSIS 1+; OVALOCYTES SLIGHT
[2018-09-23 07:04] LABS: PLATELET COMMENT DECREASED; POIKILOCYTOSIS 1+
[2018-09-23] MEDS: METFORMIN HCL 500 MG TABLET PO SCH ×2 (08:36→17:20)
[2018-09-23] MEDS: TAMSULOSIN HCL 0.4 MG CAP.SR.24H PO SCH (08:36)
[2018-09-23] MEDS: LISINOPRIL 5 MG TABLET PO SCH (08:37)
[2018-09-23] MEDS: NORMAL SALINE 1000 ML 1,000 ML IV PRN ×2 (11:08→23:49)
[2018-09-23] MEDS: METOPROLOL TARTRATE 25 MG TABLET PO SCH ×2 (11:16→22:01)
[2018-09-23] MEDS: INSULIN GLARGINE,HUM.REC.ANLOG 300 UNIT/3 ML INSULN.PEN SUBCUT SCH ×2 (11:16→21:59)
[2018-09-23] MEDS: CALCIUM CARBONATE 250 MG/VITAMIN D3 125 UNIT TABLET PO SCH ×2 (11:16→17:22)
[2018-09-23] MEDS: FAMOTIDINE 20 MG TABLET PO SCH ×2 (11:17→22:01)
--- NOTE | 2018-09-23 11:45 | PDOC PROGRESS REPORT ---
Subjective Progress Note for:: 09/23/18 Subjective:: Patient is sleeping peacefully and does not arouse this morning. Nurses report that he has continued to refuse him meds and is now refusing to be turned in bed of get up at all. He has remained afebrile. 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 Physical Exam Vital Signs: Temp Pulse Resp BP Pulse Ox 99.4 F 123 H 15 104/71 97 09/22/18 22:54 09/22/18 22:54 09/22/18 22:54 09/22/18 22:54 09/22/18 22:54 Intake & Output 09/22/18 09/23/18 09/24/18 06:59 06:59 06:59 Intake Total 1623 1400 1050 Balance 1623 1400 1050 Weight 62.1 kg 58.9 kg General appearance: PRESENT: thin Head exam: PRESENT: normocephalic Respiratory exam: PRESENT: clear to auscultation clare, unlabored Cardiovascular exam: PRESENT: RRR Skin exam: PRESENT: normal color Results Laboratory Results: 09/23/18 03:59 09/23/18 03:59 09/22/18 09/23/18 09/23/18 11:33 03:59 03:59 WBC 0.9 L* 0.5 L* RBC 3.82 L 3.65 L Hgb 11.3 L 10.8 L Hct 32.5 L 31.1 L MCV 85 85 MCH 29.6 29.6 MCHC 34.9 34.7 RDW 15.9 H 15.7 H Plt Count 26 L* 17 L* Seg Neutrophils % Not Reportable 17.7 L Lymphocytes % Not Reportable 71.8 H Monocytes % Not Reportable 8.5 Eosinophils % Not Reportable 1.1 Basophils % Not Reportable 0.9 Absolute Neutrophils Not Reportable 0.1 L Absolute Lymphocytes Not Reportable 0.4 L Absolute Monocytes Not Reportable 0.0 L Absolute Eosinophils Not Reportable 0.0 Absolute Basophils Not Reportable 0.0 Sodium 134.8 L Potassium 3.0 L* Chloride 96 L Carbon Dioxide 29 Anion Gap 10 BUN 17 Creatinine 0.65 Est GFR ( Amer) > 60 Est GFR (Non-Af Amer) > 60 Glucose 74 L Calcium 7.4 L 08/23/18 08/23/1818 14:04 14:27 14:27 Creatine Kinase Cancelled 21 L Troponin I < 0.012 Impressions: Chest X-Ray 08/23/18 13:16 IMPRESSION: Findings worrisome for postobstructive pneumonia in the left upper lobe related to left hilar mass Abdomen/Pelvis CT 08/23/18 14:48 IMPRESSION: Malignant appearing left hilar mass with postobstructive collapse and consolidation left upper lobe. Bony metastatic lesions in the sternum and L5 vertebral body Malignant appearing Mediastinal and retroperitoneal lymph nodes. Multiple pe ritoneal implants without ascites. Chest CT 08/23/18 14:48 IMPRESSION: Malignant appearing left hilar mass with postobstructive collapse and consolidation left upper lobe. Bony metastatic lesions in the sternum and L5 vertebral body Malignant appearing Mediastinal and retroperitoneal lymph nodes. Multiple peritoneal implants without ascites. Head MRI 08/24/18 00:00 IMPRESSION: Innumerable enhancing lesions consistent with extensive metastatic disease to the infratentorial and supratentorial brain, as above. Mild associated mass effect. No midline shift. copyright 2011 [employer]- All Rights Reserved Assessment & Plan - Diagnosis (1) Lung mass Is this a current diagnosis for this admission?: Yes (2) Brain metastases Is this a current diagnosis for this admission?: Yes (3) Risk for falls Is this a current diagnosis for this admission?: Yes (4) Nausea Is this a current diagnosis for this admission?: Yes (5) Small cell lung cancer, left upper lobe Is this a current diagnosis for this admission?: Yes (6) Pancytopenia due to antineoplastic chemotherapy Is this a current diagnosis for this admission?: Yes - Plan Summary Plan Summary: After further discussion with patient and his family, all are in agreement to try again for SNF evaluation, but only for palliative care/Hospice. No further rehab, chemo, or aggressive therapy will be pursued. Patient is unable to perform any of his ADLs and is now requiring care home. He is currently pancytopenic due to the chemotherapy. I will order cultures and antibiotics for any fever and continue supportive care only. No transfusions at this point. Please call me with any concerns.
--- NOTE | 2018-09-23 12:45 | PDOC PROGRESS REPORT ---
Subjective Progress Note for:: 09/23/18 Subjective:: Patient was seen and examined. He is awake and alert. He is weak and has poor appetite. Disposition has been an issue. He was diagnosed with metastatic small cell cancer. Currently is seeking only palliative treatment. 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 ABSENT: accessory muscle use GI/Abdominal exam: PRESENT: soft. ABSENT: mass, tenderness Rectal exam: PRESENT: deferred Extremities exam: ABSENT: joint swelling, pedal edema Neurological exam: PRESENT: alert, awake, oriented to person, oriented to place, oriented to time, oriented to situation Psychiatric exam: ABSENT: agitated, anxious Results Laboratory Results: 09/23/18 03:59 09/23/18 03:59 09/22/18 09/23/18 09/23/18 11:33 03:59 03:59 WBC 0.9 L* 0.5 L* RBC 3.82 L 3.65 L Hgb 11.3 L 10.8 L Hct 32.5 L 31.1 L MCV 85 85 MCH 29.6 29.6 MCHC 34.9 34.7 RDW 15.9 H 15.7 H Plt Count 26 L* 17 L* Seg Neutrophils % Not Reportable 17.7 L Lymphocytes % Not Reportable 71.8 H Monocytes % Not Reportable 8.5 Eosinophils % Not Reportable 1.1 Basophils % Not Reportable 0.9 Absolute Neutrophils Not Reportable 0.1 L Absolute Lymphocytes Not Reportable 0.4 L Absolute Monocytes Not Reportable 0.0 L Absolute Eosinophils Not Reportable 0.0 Absolute Basophils Not Reportable 0.0 Sodium 134.8 L Potassium 3.0 L* Chloride 96 L Carbon Dioxide 29 Anion Gap 10 BUN 17 Creatinine 0.65 Est GFR ( Amer) > 60 Est GFR (Non-Af Amer) > 60 Glucose 74 L Calcium 7.4 L 08/23/18 08/23/18 08/23/18 14:04 14:27 14:27 Creatine Kinase Cancelled 21 L Troponin I < 0.012 Impressions: Chest X-Ray 08/23/18 13:16 IMPRESSION: Findings worrisome for postobstructive pneumonia in the left upper lobe related to left hilar mass Abdomen/Pelvis CT 08/23/18 14:48 IMPRESSION: Malignant appearing left hilar mass with postobstructive collapse and consolidation left upper lobe. Bony metastatic lesions in the sternum and L5 vertebral body Malignant appearing Mediastinal and retroperitoneal lymph nodes. Multiple peritoneal implants without ascites. Chest CT 08/23/18 14:48 IMPRESSION: Malignant appearing left hilar mass with postobstructive collapse and consolidation left upper lobe. Bony metastatic lesions in the sternum and L5 vertebral body Malignant appearing Mediastinal and retroperitoneal lymph nodes. Multiple peritoneal implants without ascites. Head MRI 08/24/18 00:00 IMPRESSION: Innumerable enhancing lesions consistent with extensive metastatic disease to the infratentorial and supratentorial brain, as above. Mild associated mass effect. No midline shift. copyright 2011 [employer]- All Rights Reserved Assessment & Plan - Diagnosis (1) Small cell lung cancer, left upper lobe Is this a current diagnosis for this admission?: Yes Plan: Received 1 cycle of chemo. Currently seeking palliative care. Will consult hospice. (2) Brain metastases Is this a current diagnosis for this admission?: Yes Plan: Palliative measures. (3) Hypokalemia Is this a current diagnosis for this admission?: Yes Plan: Potassium supplements daily (4) Pancytopenia due to antineoplastic chemotherapy Is this a current diagnosis for this admission?: Yes Plan: No transfusions per oncology (5) Type II diabetes mellitus Qualifiers: Diabetes mellitus alf insulin use: without alf use Diabetes mellitus complication status: with unspecified complications Qualified Code(s): E11.8 - Type 2 diabetes mellitus with unspecified complications Is this a current diagnosis for this admission?: Yes Plan: Continue current treatment
[2018-09-23] MEDS: POTASSIUM CHLORIDE 20 MEQ/15 ML UDCUP PO SCH (17:21)
[2018-09-24] MEDS: METFORMIN HCL 500 MG TABLET PO SCH ×2 (10:18→16:39)
[2018-09-24] MEDS: TAMSULOSIN HCL 0.4 MG CAP.SR.24H PO SCH (10:22)
[2018-09-24] MEDS: METOPROLOL TARTRATE 25 MG TABLET PO SCH ×2 (10:22→21:47)
[2018-09-24] MEDS: POTASSIUM CHLORIDE 20 MEQ/15 ML UDCUP PO SCH (10:22)
[2018-09-24] MEDS: CALCIUM CARBONATE 250 MG/VITAMIN D3 125 UNIT TABLET PO SCH ×2 (10:22→18:44)
[2018-09-24] MEDS: LISINOPRIL 5 MG TABLET PO SCH (10:23)
[2018-09-24] MEDS: INSULIN GLARGINE,HUM.REC.ANLOG 300 UNIT/3 ML INSULN.PEN SUBCUT SCH ×2 (10:27→21:47)
--- NOTE | 2018-09-24 11:56 | PDOC PROGRESS REPORT ---
Subjective Progress Note for:: 09/24/18 Subjective:: Patient was seen and examined. He is awake and alert. He is weak and has poor appetite. Disposition has been an issue. He was diagnosed with metastatic small cell cancer. Currently is seeking only palliative treatment. Patient tells me he is going to rehab. He has low-grade fever of 100.9. Oncology are not planning any treatment for his cancer. 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 ABSENT: accessory muscle use Cardiovascular exam: PRESENT: RRR GI/Abdominal exam: PRESENT: normal bowel sounds, soft. ABSENT: tenderness Neurological exam: PRESENT: alert, awake, oriented to person, oriented to place, oriented to time, oriented to situation Results Laboratory Results: 09/23/18 03:59 08/23/18 08/23/18 08/23/18 14:04 14:27 14:27 Creatine Kinase Cancelled 21 L Troponin I < 0.012 Impressions: Chest X-Ray 08/23/18 13:16 IMPRESSION: Findings worrisome for postobstructive pneumonia in the left upper lobe related to left hilar mass Abdomen/Pelvis CT 08/23/18 14:48 IMPRESSION: Malignant appearing left hilar mass with postobstructive collapse and consolidation left upper lobe. Bony metastatic lesions in the sternum and L5 vertebral body Malignant appearing Mediastinal and retroperitoneal lymph nodes. Multiple peritoneal implants without ascites. Chest CT 08/23/18 14:48 IMPRESSION: Malignant appearing left hilar mass with postobstructive collapse and consolidation left upper lobe. Bony metastatic lesions in the sternum and L5 vertebral body Malignant appearing Mediastinal and retroperitoneal lymph nodes. Multiple peritoneal implants without ascites. Head MRI 08/24/18 00:00 IMPRESSION: Innumerable enhancing lesions consistent with extensive metastatic disease to the infratentorial and supratentorial brain, as above. Mild associated mass effect. No midline shift. copyright 2010 [employer]- All Rights Reserved Assessment & Plan - Diagnosis (1) Small cell lung cancer, left upper lobe Is this a current diagnosis for this admission?: Yes Plan: Received 1 cycle of chemo. Currently seeking palliative care. Oncology are now planning any treatment. We consulted hospice. (2) Brain metastases Is this a current diagnosis for this admission?: Yes Plan: Palliative measures. (3) Hypokalemia Is this a current diagnosis for this admission?: Yes Plan: Potassium supplements daily. Monitor potassium levels. 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 We will start empiric cefepime. Check urine and blood culture.
[2018-09-24 12:30] LABS: ANION GAP 11 (5-19); BLOOD UREA NITROGEN 15 mg/dL (7-20); CALCIUM 7.8 mg/dL (8.4-10.2); CARBON DIOXIDE 25 mmol/L (22-30); CHLORIDE 100 mmol/L (98-107); GLUCOSE 113 mg/dL (75-110); SODIUM 136.2 mmol/L (137-145)
[2018-09-24 12:33] LABS: POTASSIUM 2.8 mmol/L (3.6-5.0)
[2018-09-24] MEDS ORDERED: POTASSIUM CHLORIDE 20 MEQ/15 ML UDCUP PO ONE (14:30)
[2018-09-24] MEDS: CEFEPIME 2 GM/D5W RTU 2 GM/50 ML RTUPB IV SCH ×2 (16:34→21:51)
[2018-09-24] MEDS: NORMAL SALINE 1000 ML 1,000 ML IV PRN (19:02)
[2018-09-24 20:12] VITALS: BP 91/57
--- NOTE | 2018-09-25 16:56 | Death Summary ---
Summary Date : 09/24/18 Time of :: 22:55 Resuscitation Status: Do Not Resuscitate - Final Diagnosis (1) Small cell lung cancer, left upper lobe Is this a current diagnosis for this admission?: Yes (2) Brain metastases Is this a current diagnosis for this admission?: Yes (3) Hypokalemia Is this a current diagnosis for this admission?: Yes (4) Pancytopenia due to antineoplastic chemotherapy Is this a current diagnosis for this admission?: Yes (5) Type II diabetes mellitus Is this a current diagnosis for this admission?: Yes (6) Fever Is this a current diagnosis for this admission?: Yes Hospital Course:: ELIAS GRIFFIN is a 73 year old male who comes in with a roughly 4-week history of decreased appetite and general malaise. He feels like he has lost a little bit of weight in that time but is not sure how much. His energy level has decreased and his exercise capacity has diminished. He is not had any cough, fever, or chills. He has had no other symptoms. He has not had any change in his bowel or bladder habits. Generally his oral intake is diminished. In the course of his ER workup it was determined that he had what looks like a large left hilar mass, diffuse adenopathy, and retroperitoneal and bony implants. He is being admitted for further assessment. (1) Small cell lung cancer, left upper lobe Received 1 cycle of chemo. Currently seeking palliative care. Oncology are now planning any treatment. We consulted hospice. (2) Brain metastases Palliative measures. (3) Hypokalemia Potassium supplements daily. Monitor potassium levels. (4) Pancytopenia due to antineoplastic chemotherapy No transfusions per oncology unless he is bleeding (5) Type II diabetes mellitus Continue current treatment (6) Fever Patient is neutropenic. We started empiric cefepime. Check urine and blood culture. patient 09/24/18 at 22:55
== END 2018-09-25 01:25 | disposition expired | DRG 166 ==
LOC: ER 12:43 → EH 17:59 → 4N 21:39
PROVIDERS: ADMIT Hospitalist; ATTEND Hospitalist
PROC: 0BBG8ZX Excision of Left Upper Lung Lobe, Via Natural or Artificial Opening Endoscopic, Diagnostic (ICD-10-PCS; principal; 2018-08-26 08:00)
DX: C34.12 Malignant neoplasm of upper lobe, left bronchus or lung (principal); D61.810 Antineoplastic chemotherapy induced pancytopenia; C79.31 Secondary malignant neoplasm of brain; B37.89 Other sites of candidiasis; T45.1X5A Adverse effect of antineoplastic and immunosuppressive drugs, initial encounter; Z51.5 Encounter for palliative care; E87.6 Hypokalemia; E11.9 Type 2 diabetes mellitus without complications; I10 Essential (primary) hypertension; E78.5 Hyperlipidemia, unspecified; Z79.82 Long term (current) use of aspirin; Z79.899 Other long term (current) drug therapy; Z90.49 Acquired absence of other specified parts of digestive tract; F17.210 Nicotine dependence, cigarettes, uncomplicated; Z79.84 Long term (current) use of oral hypoglycemic drugs
CPT/HCPCS: 31625; 36415; 70553; 71045; 71260; 74177; 80048; 80053; 82550; 82962; 83605; 83615; 83735; 84439; 84443; 84481; 84484; 85025; 85610; 85730; 87015; 87040; 87070; 87101; 87116; 87205; 87206; 88305; 88341; 88342; 93005; 93010; 94660; 96360; 96361; 96367; 96375; 96413; 96415; 99285; A9270-GY; A9576; G8978-GP; G8979-GP; J0171; J0692; J1100; J1200; J1453; J1610; J1644; J1815; J1940; J2250; J2310; J2405; J2469; J2543; J2765; J3010; J3475; J3480; J3490; J7030; J7040; J7050; J9060; J9181; S0119